=== PATIENT | male | born 1940 | race Caucasian/White ===

== ENCOUNTER → 2021-03-10 08:25 | Outpatient (REF) | payer MEDICARE, OTHER, SELFPAY ==
--- NOTE | 2021-03-10 08:30 | CA_ITS ---
Transthoracic Echocardiogram Patient (Last, First, Middle): Bobo Singh P Gender: Male Date of : 1940 Age: 80 Procedure Date: 03/10/2021 Procedure Type: Transthoracic Echocardiogram Location: OP Height: 182.88 cm Weight: 86.18 kg BSA: 2.08 m2 Heart Rate: bpm BP: 122 / 60 mmHg Automotive Glass Specialist: Referring MD: Tristan Doty MD Rate Analyst: Tristan Doty MD Symptoms: Z95.2 S/P AVR I25.10 CAD W/O ANGINA I10 HTN Z95.1 S/P CABG Study Quality: Fair ECG Rhythm: Sinus Conclusions: - 1. Normal LV systolic function with impaired relaxation filling pattern 2. Mildly dilated left atrium 3. Normally function bioprosthetic aortic valve with mean gradient of 14 mm Hg 4 normal RV systolic pressure 5. No pericardial effusion Findings Left Ventricle Normal left ventricular size and systolic function. There is mildly increased left ventricular wall thickness. The visually estimated ejection fraction is between 55-60%. There is paradoxical septal motion consistent with post operative status. Spectral Doppler is indicative of an impaired relaxation filling pattern. E/E prime ratio is between 8 and 15 consistent with indeterminate filling pressures. Right Ventricle Normal right ventricular cavity size and systolic function. Atria The left atrium is mildly dilated. There is no evidence of interatrial shunt. The right atrium is normal in size. Aortic Valve A bioprosthetic aortic valve is present. The prosthetic aortic valve appears to be functioning normally. The bioprosthetic valve is well seated without abnormal rocking motion. The leaflets are not well visualized. Mean gradient is 14 mm of mercury which is unchanged from before. Mitral Valve Normal mitral valve structure and function. There is mild mitral annular calcification. There is trace mitral valve regurgitation. There is no mitral valve stenosis. Pulmonic Valve The pulmonic valve was not well visualized. Tricuspid Valve Likely normal tricuspid valve structure and function. There is mild tricuspid valve regurgitation. The right ventricular systolic pressure is normal. The right ventricular systolic pressure is 16 mmHg. Normal right atrial pressure. There is no evidence of pulmonary hypertension. Great Vessels All visible segments of the aorta are normal in size. The pulmonary artery was not well visualized. Venous The inferior vena cava was not well visualized. Pericardium/Pleural There is no evidence of pericardial effusion. Prior Study Comparison No significant change compared to prior study dated: 02/23/2020. Measurements 2D Linear Measurements IVSd: 1.28 0.6-0.9/0.6-1.0 cm LVIDd: 4.51 3.9-5.3/4.2-5.9 cm LVIDd Index: 2.17 2.4-3.2/2.2-3.1 cm/m2 LVIDs: 2.84 2.0-3.6 cm LVPWd: 1.30 0.7-1.1 cm Ao Root: 4.10 2.1-3.5 cm LA Diam: 5.10 2.7-3.8/3.0-4.0 cm LAIDs Index: 2.45 1.5-2.3 cm/m2 LV Mass: 275.25 67-162/88-224 g LV Mass Index: 132.33 43-95/49-115 g/m2 LVOT Diam: 2.00 3.0+(-)1.3 cm Mitral Valve MV Pk E: 0.65 MV PK A: 1.30 MV Decel Time: 243.00 E/A: 0.50 E'Lateral: 8.05 E'Medial: 5.55 E/E' Med: 11.70 E/E' Lat: 8.10 PHT: 71.00 MVA PHT: 3.10 Decel [place]: 2.68 Aortic Valve AoV Pk Silvano: 2.41 AoV Mn Silvano: 1.71 AoV VTI: 0.57 AoV Pk Grad: 23.00 Aov Mn Grad: 14.00 SELMA Cont.VTI: 1.02 LVOT LVOT Pk Silvano: 0.90 LVOT Mn Silvano: 0.57 LVOT VTI: 0.19 LVOT Pk Grad: 3.00 LVOT Mn Grad: 2.00 LVOT Diam: 2.00 LVOT Area: 3.14 Diastolic Function MV Pk E: 0.65 MV Pk A: 1.30 E/A: 0.50 E'Medial: 5.55 E/E' Med: 11.70 E' Laterial: 8.05 E/E' Lat: 8.10 Tricuspid Valve TR Pk Silvano: 1.81 TR Pk Grad: 13.00 RA Press: 3.00 RVSP: 16.00 Great Vessels Aorta Ao Root-2D: 4.10 2.0-3.7 cm Pulmonary Valve PV Pk Silvano: 1.00 Peak PV Grad: 4.00 Updated in Other Vendor System with Status of Final Tristan Doty MD electronically signed on 03/11/2021 12:17:28 PM with status of Final
== END ==
LOC: HO.CARD 08:25
PROVIDERS: PCP Internal Medicine; Visit Provider Internal Medicine Cardiovascular Disease
DX: I25.10 Atherosclerotic heart disease of native coronary artery without angina pectoris (principal); I10 Essential (primary) hypertension; Z95.2 Presence of prosthetic heart valve; Z95.1 Presence of aortocoronary bypass graft
CPT/HCPCS: 93306

== ENCOUNTER → 2021-04-10 09:37 | Outpatient (BNVA) | payer MEDICARE, OTHER, SELFPAY | PROVIDERS: PCP Internal Medicine; Referring Provider Internal Medicine; Visit Provider Internal Medicine Cardiovascular Disease | DX: I25.10 Atherosclerotic heart disease of native coronary artery without angina pectoris (principal); I10 Essential (primary) hypertension; Z95.2 Presence of prosthetic heart valve; Z79.899 Other long term (current) drug therapy | CPT/HCPCS: 93005; 99212 ==

== ENCOUNTER 2022-03-28 13:30 | Outpatient (REF) | payer MEDICARE, OTHER, SELFPAY ==
[2022-03-28 16:56] LABS: Anion Gap 12 (12-20); Blood Urea Nitrogen 25 mg/dL (9-16); Calcium 9.2 mg/dL (8.4-10.2); Carbon Dioxide 26 mmol/L (22-29); Chloride 108 mmol/L (96-108); Estimated Glomerular Filt Rate > 60; Glucose Random 109 mg/dL (60-115); Potassium 4.4 mmol/L (3.3-5.1); Sodium 142 mmol/L (135-145)
== END 2022-03-28 13:31 | disposition home or self-care (01) ==
LOC: HO.HMGCLDS 13:30
PROVIDERS: PCP Internal Medicine; Visit Provider Internal Medicine Cardiovascular Disease
DX: I25.10 Atherosclerotic heart disease of native coronary artery without angina pectoris (principal); I10 Essential (primary) hypertension
CPT/HCPCS: 36415; 80048; 83880

== ENCOUNTER → 2022-04-02 09:13 | Outpatient (REF) | payer MEDICARE, OTHER, SELFPAY ==
--- NOTE | 2022-04-02 09:20 | CA_ITS ---
Transthoracic Echocardiogram Patient (Last, First, Middle): Bobo Singh P Gender: Male Date of : 1940 Age: 81 Procedure Date: 04/02/2022 Procedure Type: Transthoracic Echocardiogram Location: OP Height: 182.88 cm Weight: 83.92 kg BSA: 2.06 m2 Heart Rate: 77 bpm BP: 12 / 72 mmHg Legal Contracts Specialist: SB Referring MD: Tristan Doty MD Symptoms: Z95.2 - Presence of prosthetic heart valve Study Quality: Adequate ECG Rhythm: Sinus Conclusions: - The left ventricular systolic function is normal. The calculated ejection fraction is 64% by biplane method. - There is moderate septal asymmetric hypertrophy. - Evidence suggests grade III (severe) diastolic dysfunction. - The left atrium is severely dilated. - A bioprosthetic aortic valve is present. The prosthetic aortic valve appears to be functioning normally. - There is mild to moderate mitral valve regurgitation. Findings Left Ventricle Normal left ventricular cavity size. The left ventricular systolic function is normal. The calculated ejection fraction is 64% by biplane method. There is no evidence of regional wall motion abnormalities. E/E prime ratio is >15, consistent with elevated filling pressures. Evidence suggests grade III (severe) diastolic dysfunction. There is moderate septal asymmetric hypertrophy. Right Ventricle Normal right ventricular cavity size. There is mildly decreased right ventricular systolic function. Atria The left atrium is severely dilated. The right atrium is normal in size. Aortic Valve A bioprosthetic aortic valve is present. The prosthetic aortic valve appears to be functioning normally. The mean gradient is 22 mmHg. The aortic valve area is 1.97 cm2. Mild valvular regurgitation. Mitral Valve There is mild anterior mitral leaflet thickening. There is mild to moderate mitral valve regurgitation. There is no mitral valve stenosis. Pulmonic Valve The pulmonic valve is likely normal. Tricuspid Valve Normal tricuspid valve structure. There is mild tricuspid valve regurgitation. The pulmonary artery systolic pressure is normal. Great Vessels There is mild dilatation of the ascending aorta measuring 4.00 cm. Venous The inferior vena cava is normal in size and collapses less than 50% with inspiration. Pericardium/Pleural There is a trivial pericardial effusion. Prior Study Comparison Changes noted compared to prior study dated: 03/10/2021. Progression of diastolic dysfunction. Increase in atrial size. Increase in aortic valve gradients. Measurements 2D Linear Measurements IVSd: 1.33 0.6-0.9/0.6-1.0 cm LVIDd: 6.29 3.9-5.3/4.2-5.9 cm LVIDd Index: 3.05 2.4-3.2/2.2-3.1 cm/m2 LVIDs: 4.28 2.0-3.6 cm LVPWd: 0.89 0.7-1.1 cm Ao Root: 3.30 2.1-3.5 cm LA Diam: 5.20 2.7-3.8/3.0-4.0 cm LAIDs Index: 2.52 1.5-2.3 cm/m2 LV Mass: 382.59 67-162/88-224 g LV Mass Index: 185.72 43-95/49-115 g/m2 LVOT Diam: 2.20 3.0+(-)1.3 cm 2D Systolic Function EF 4C: 69.60 >55% EF 2C: 56.90 >55% EF BiP: 63.90 >55% Mitral Valve MV Pk E: 1.70 MV PK A: 0.43 MV Decel Time: 233.00 E/A: 4.00 E'Medial: 6.96 E/E' Med: 24.40 PHT: 68.00 MVA PHT: 3.24 Decel Perry: 7.32 MR Vol - PW Dopp: 22.12 MR VTI: 1.58 MR ERO: 14.00 MR Alias Silvano: 0.45 MR RAD: 0.50 Aortic Valve AoV Pk Silvano: 2.99 AoV Mn Silvano: 2.19 AoV VTI: 0.67 AoV Pk Grad: 36.00 Aov Mn Grad: 22.00 SELMA Cont.VTI: 1.97 AI Pk Silvano: 4.14 AI Perry: 4.73 LVOT LVOT Pk Silvano: 1.60 LVOT Mn Silvano: 1.05 LVOT VTI: 0.35 LVOT Pk Grad: 10.00 LVOT Mn Grad: 6.00 LVOT Diam: 2.20 LVOT Area: 3.80 Diastolic Function MV Pk E: 1.70 MV Pk A: 0.43 E/A: 4.00 E'Medial: 6.96 E/E' Med: 24.40 Right Ventricle TAPSE (mm): 14.10 TVS' Silvano: 7.90 Tricuspid Valve RA Press: 8.00 Great Vessels Aorta Ao Root-2D: 3.30 2.0-3.7 cm Sinus of Valsalva: 3.30 2.0-3.5 cm Ao Asc: 4.00 2.1-3.4 cm Pulmonary Valve PV Pk Silvano: 0.77 Peak PV Grad: 2.00 Updated in Other Vendor System with Status of Final Arturo Liang MD electronically signed on 04/02/2022 10:56:35 AM with status of Final
== END ==
LOC: HO.CARD 09:13
PROVIDERS: PCP Internal Medicine; Visit Provider Internal Medicine Cardiovascular Disease
DX: Z95.2 Presence of prosthetic heart valve (principal)
CPT/HCPCS: 93306

== ENCOUNTER → 2022-04-16 10:25 | Outpatient (BNVA) | payer MEDICARE, OTHER, SELFPAY | PROVIDERS: PCP Internal Medicine; Referring Provider Internal Medicine; Visit Provider Internal Medicine Cardiovascular Disease | DX: I25.10 Atherosclerotic heart disease of native coronary artery without angina pectoris (principal); R06.02 Shortness of breath; Z95.2 Presence of prosthetic heart valve | CPT/HCPCS: 93005; 99212 ==

== ENCOUNTER 2022-04-20 11:23 | Outpatient (REF) | payer MEDICARE, OTHER, SELFPAY ==
[2022-04-20 14:24] LABS: B Type Natriuretic Peptide 540 pg/mL (<100)
== END 2022-04-20 11:24 | disposition home or self-care (01) ==
LOC: HO.HMGCLDS 11:23
PROVIDERS: Visit Provider Internal Medicine Cardiovascular Disease
DX: I10 Essential (primary) hypertension (principal); I25.10 Atherosclerotic heart disease of native coronary artery without angina pectoris
CPT/HCPCS: 36415; 83880

== ENCOUNTER 2022-05-10 09:12 | Outpatient (REF) | payer MEDICARE, OTHER, SELFPAY ==
[2022-05-10 11:37] LABS: B Type Natriuretic Peptide 426 pg/mL (<100)
[2022-05-10 11:41] LABS: Anion Gap 13 (12-20); Blood Urea Nitrogen 28 mg/dL (9-16); Calcium 9.3 mg/dL (8.4-10.2); Carbon Dioxide 26 mmol/L (22-29); Chloride 109 mmol/L (96-108); Estimated Glomerular Filt Rate > 60; Glucose Random 136 mg/dL (60-115); Potassium 4.1 mmol/L (3.3-5.1); Sodium 144 mmol/L (135-145)
== END 2022-05-10 09:13 | disposition home or self-care (01) ==
LOC: HO.HMGCLDS 09:12
PROVIDERS: Visit Provider Internal Medicine Cardiovascular Disease
DX: I10 Essential (primary) hypertension (principal); I25.10 Atherosclerotic heart disease of native coronary artery without angina pectoris; Z95.2 Presence of prosthetic heart valve
CPT/HCPCS: 36415; 80048; 83880

== ENCOUNTER 2022-05-14 15:04 | Outpatient (REF) | payer MEDICARE, OTHER, SELFPAY ==
--- NOTE | ~2022-05-14 | XR_ITS ---
EXAMINATION: XR CHEST CLINICAL INFORMATION: Interstitial pulmonary disease. COMPARISON: None TECHNIQUE: 2 views of the chest were obtained. FINDINGS: The lungs are well expanded and clear of acute process. There is mild blunting of left CP angle from pleural thickening or effusion. Heart size and pulmonary vascularity is normal. There is aortic valve prosthesis and median sternotomy sutures from previous intervention. No gross bony abnormality seen. XR/XR chest 2V IMPRESSION: Mild blunting of left CP angle from pleural effusion or thickening.
== END 2022-05-14 15:05 | disposition home or self-care (01) ==
LOC: HO.XRAY 15:04
PROVIDERS: PCP Internal Medicine; Visit Provider Hospitalist
DX: J84.9 Interstitial pulmonary disease, unspecified (principal); J64 Unspecified pneumoconiosis; R06.02 Shortness of breath; Z87.891 Personal history of nicotine dependence; Z79.899 Other long term (current) drug therapy
CPT/HCPCS: 71046; 99202

== ENCOUNTER 2022-06-06 13:56 | Outpatient (REF) | payer MEDICARE, OTHER, SELFPAY ==
--- NOTE | 2022-06-06 14:54 | PFT_ITS ---
FLOWS: FEV1 72% of predicted at 2.25 L. FVC 63% of predicted at 2.76 L. FEV1 to FVC ratio of 0.82. No bronchodilator response except in small to medium airways. LUNG VOLUMES: Total lung capacity 63% of predicted at 4.72 L. Residual volume 76% of predicted at 2.14 L. Slow vital capacity 55% of predicted at 2.58 L. 43% of predicted at 0.55 L. Diffusion capacity is moderately decreased, diffusion capacity adjust to being mildly decreased after correction for alveolar ventilation. IMPRESSION: Moderate restrictive ventilatory defect with no bronchodilator response except in small to medium airways. Combination of decreased diffusion capacity with restrictive ventilatory defect suggest underlying pulmonary parenchymal disease. Clinical correlation is advised. MD JOSSIE Medina/MODL / [id number]
== END 2022-06-06 13:57 | disposition home or self-care (01) ==
LOC: HO.RESP 13:56
PROVIDERS: PCP Internal Medicine; Visit Provider Hospitalist
DX: J84.9 Interstitial pulmonary disease, unspecified (principal)
CPT/HCPCS: 94060; 94727; 94729

== ENCOUNTER → 2022-06-20 11:22 | Outpatient (BNVA) | payer MEDICARE, OTHER, SELFPAY | PROVIDERS: PCP Internal Medicine; Visit Provider Hospitalist | DX: J84.9 Interstitial pulmonary disease, unspecified (principal); J64 Unspecified pneumoconiosis; R06.02 Shortness of breath; G20 Parkinson's disease | CPT/HCPCS: 99212 ==

== ENCOUNTER 2022-08-24 09:18 | Outpatient (REF) | payer MEDICARE, OTHER, SELFPAY ==
--- NOTE | ~2022-08-24 | XR_ITS ---
EXAMINATION: XR CHEST CLINICAL INFORMATION: Shortness of breath COMPARISON: 05/14/2022 TECHNIQUE: 2 views of the chest were obtained. FINDINGS: Median sternotomy wires appear intact. Aortic valvular hardware. [id number] left pleural effusion. No pneumothorax. The cardiomediastinal silhouette is unchanged, with a calcified aorta. XR/XR chest 2V IMPRESSION: [id number] left pleural effusion.
== END 2022-08-24 09:19 | disposition home or self-care (01) ==
LOC: HO.XRAY 09:18
PROVIDERS: PCP Internal Medicine; Visit Provider Internal Medicine Cardiovascular Disease
DX: R06.02 Shortness of breath (principal); T82.09XA Other mechanical complication of heart valve prosthesis, initial encounter; I25.10 Atherosclerotic heart disease of native coronary artery without angina pectoris; Z79.899 Other long term (current) drug therapy
CPT/HCPCS: 71046; 99212

== ENCOUNTER → 2022-09-12 11:37 | Outpatient (BNVA) | payer MEDICARE, OTHER, SELFPAY | PROVIDERS: PCP Internal Medicine; Referring Provider Internal Medicine; Visit Provider Internal Medicine Cardiovascular Disease | DX: I25.10 Atherosclerotic heart disease of native coronary artery without angina pectoris (principal); I50.20 Unspecified systolic (congestive) heart failure; Z95.2 Presence of prosthetic heart valve | CPT/HCPCS: 93005; 99212 ==

== ENCOUNTER → 2022-09-18 09:18 | Outpatient (REF) | payer MEDICARE, OTHER, SELFPAY ==
--- NOTE | 2022-09-18 09:20 | CA_ITS ---
Transthoracic Echocardiogram Patient (Last, First, Middle): Bobo Singh P Gender: Male Date of : 1940 Age: 82 Procedure Date: 09/18/2022 Procedure Type: Transthoracic Echocardiogram Location: OP Height: 182.88 cm Weight: 72.58 kg BSA: 1.94 m2 Heart Rate: bpm BP: 100 / 68 mmHg Wheel Loader Operator: TO Referring MD: Tristan Doty MD Symptoms: Z95.2 - Presence of prosthetic heart valve Study Quality: Fair ECG Rhythm: Sinus Conclusions: - The calculated ejection fraction is 51% by biplane method. There is mild global hypokinesis. - There is mild to moderately decreased right ventricular systolic function. - The left atrium is severely dilated. - A bioprosthetic aortic valve is present. The prosthetic aortic valve appears to be functioning normally. - There is mild mitral valve regurgitation. Findings Left Ventricle Normal left ventricular cavity size. The left ventricular systolic function is mildly decreased. The calculated ejection fraction is 51% by biplane method. There is mild global hypokinesis. Diastolic function is normal for age. There is moderate septal asymmetric hypertrophy. Right Ventricle Normal right ventricular cavity size. There is mild to moderately decreased right ventricular systolic function. Atria The left atrium is severely dilated. The right atrium is normal in size. Aortic Valve A bioprosthetic aortic valve is present. The prosthetic aortic valve appears to be functioning normally. There is no aortic valve regurgitation. Mitral Valve There is mild anterior and posterior mitral leaflet thickening. There is mild mitral annular calcification. There is mild mitral valve regurgitation. There is no mitral valve stenosis. Pulmonic Valve The pulmonic valve is likely normal. Tricuspid Valve Normal tricuspid valve structure. There is trace tricuspid valve regurgitation. There is no evidence of pulmonary hypertension. Great Vessels The aorta was not well visualized. Venous The inferior vena cava is normal in size and collapses greater than 50% with inspiration. Pericardium/Pleural There is no evidence of pericardial effusion. Prior Study Comparison Changes noted compared to prior study dated: 04/02/2022. Diastolic dysfunction does not appear restrictive as previously described. Measurements 2D Linear Measurements IVSd: 1.30 0.6-0.9/0.6-1.0 cm LVIDd: 5.09 3.9-5.3/4.2-5.9 cm LVIDd Index: 2.62 2.4-3.2/2.2-3.1 cm/m2 LVIDs: 4.02 2.0-3.6 cm LVPWd: 0.91 0.7-1.1 cm LA Diam: 4.40 2.7-3.8/3.0-4.0 cm LAIDs Index: 2.27 1.5-2.3 cm/m2 LV Mass: 266.60 67-162/88-224 g LV Mass Index: 137.42 43-95/49-115 g/m2 LVOT Diam: 1.90 3.0+(-)1.3 cm 2D Systolic Function EF 4C: 50.70 >55% EF 2C: 45.50 >55% EF BiP: 50.50 >55% Mitral Valve MV VTI: 0.28 MV Pk Silvano: 1.21 MV Mn Silvano: 0.70 MV Pk Grad: 6.00 MV Mn Grad: 2.00 MV Pk E: 0.67 MV PK A: 1.08 MV Decel Time: 194.00 E/A: 0.60 E'Lateral: 7.29 E'Medial: 5.00 E/E' Med: 13.40 E/E' Lat: 9.20 PHT: 57.00 MVA PHT: 3.86 MVA Continuity: 1.56 Decel [place]: 3.45 Aortic Valve AoV Pk Silvano: 2.07 AoV Mn Silvano: 1.40 AoV VTI: 0.34 AoV Pk Grad: 17.00 Aov Mn Grad: 9.00 SELMA Cont.VTI: 1.30 LVOT LVOT Pk Silvano: 0.82 LVOT Mn Silvano: 0.63 LVOT VTI: 0.16 LVOT Pk Grad: 3.00 LVOT Mn Grad: 2.00 LVOT Diam: 1.90 LVOT Area: 2.84 Diastolic Function MV Pk E: 0.67 MV Pk A: 1.08 E/A: 0.60 E'Medial: 5.00 E/E' Med: 13.40 E' Laterial: 7.29 E/E' Lat: 9.20 Right Ventricle TAPSE (mm): 13.00 TVS' Silvano: 5.98 Tricuspid Valve TR Pk Silvano: 1.72 TR Pk Grad: 12.00 RA Press: 3.00 RVSP: 15.00 Updated in Other Vendor System with Status of Final Arturo Liang MD electronically signed on 09/19/2022 12:32:29 PM with status of Final
== END ==
LOC: HO.CARD 09:18
PROVIDERS: PCP Internal Medicine; Visit Provider Internal Medicine Cardiovascular Disease
DX: Z95.2 Presence of prosthetic heart valve (principal)
CPT/HCPCS: 93306

== ENCOUNTER 2022-09-26 10:38 | Outpatient (REF) | payer MEDICARE, OTHER, SELFPAY ==
--- NOTE | ~2022-09-26 | XR_ITS ---
EXAMINATION: XR CHEST CLINICAL INFORMATION: Pleural effusion. COMPARISON: 08/24/2022 chest radiographs. TECHNIQUE: 2 views of the chest were obtained. FINDINGS: There is a small left pleural effusion. The left upper lung field and right lung are clear. The heart and mediastinal structures are unremarkable. An aortic valve prosthesis is noted in place. Multilevel sternotomy wires are intact. XR/XR chest 2V IMPRESSION: Small left pleural effusion represents interval improvement from the previous study.
[2022-09-26 14:23] LABS: B Type Natriuretic Peptide 92 pg/mL (<100)
[2022-09-26 14:28] LABS: Anion Gap 13 (12-20); Blood Urea Nitrogen 24 mg/dL (9-16); Calcium 9.7 mg/dL (8.4-10.2); Carbon Dioxide 33 mmol/L (22-29); Chloride 98 mmol/L (96-108); Estimated Glomerular Filt Rate > 60; Glucose Random 87 mg/dL (60-115); Potassium 4.1 mmol/L (3.3-5.1); Sodium 140 mmol/L (135-145)
== END 2022-09-26 10:39 | disposition home or self-care (01) ==
LOC: HO.XRAY 10:38
PROVIDERS: Internal Medicine Cardiovascular Disease; PCP Internal Medicine; Visit Provider Hospitalist
DX: J90 Pleural effusion, not elsewhere classified (principal); J84.9 Interstitial pulmonary disease, unspecified; J64 Unspecified pneumoconiosis; R06.00 Dyspnea, unspecified; I50.20 Unspecified systolic (congestive) heart failure; I25.10 Atherosclerotic heart disease of native coronary artery without angina pectoris; Z95.2 Presence of prosthetic heart valve; Z79.899 Other long term (current) drug therapy
CPT/HCPCS: 36415; 71046; 80048; 83880; 99212

== ENCOUNTER → 2022-10-02 08:28 | Outpatient (BNVA) | payer MEDICARE, OTHER, SELFPAY | PROVIDERS: PCP Internal Medicine; Visit Provider Psychiatry & Neurology Neurology | DX: G20 Parkinson's disease (principal); Z79.899 Other long term (current) drug therapy | CPT/HCPCS: 99202 ==

== ENCOUNTER → 2022-11-29 12:14 | Outpatient (BNVA) | payer MEDICARE, OTHER, SELFPAY | PROVIDERS: PCP Internal Medicine; Referring Provider Internal Medicine; Visit Provider Internal Medicine Cardiovascular Disease | DX: I25.10 Atherosclerotic heart disease of native coronary artery without angina pectoris (principal); I50.9 Heart failure, unspecified; Z95.2 Presence of prosthetic heart valve | CPT/HCPCS: 99212 ==

== ENCOUNTER → 2023-03-27 10:11 | Outpatient (BNVA) | payer MEDICARE, OTHER, SELFPAY | PROVIDERS: PCP Internal Medicine; Visit Provider Hospitalist | DX: J84.9 Interstitial pulmonary disease, unspecified (principal); J90 Pleural effusion, not elsewhere classified; J64 Unspecified pneumoconiosis; R06.02 Shortness of breath | CPT/HCPCS: 99212 ==

== ENCOUNTER → 2023-04-02 09:12 | Outpatient (BNVA) | payer MEDICARE, OTHER, SELFPAY | PROVIDERS: PCP Internal Medicine; Visit Provider Psychiatry & Neurology Neurology | DX: G20 Parkinson's disease (principal) | CPT/HCPCS: 99212 ==

== ENCOUNTER 2023-05-29 11:09 | Outpatient (AMB) | payer MEDICARE, OTHER, SELFPAY ==
--- NOTE | 2023-05-29 11:23 | MHC.OFFVIS ---
Intake Vital Signs 05/29/23 11:24 Height 6 ft Weight 174 lb 2.643 oz BMI 23.6 BP 136/72 Blood Pressure Location Lt brachial Position Sitting Pulse 86 Intake Visit Reasons: 6 mth f/up Intake Note: 6 month follow-up feeling good Testing Machine Operator Required: No Allergies No Known Allergies Allergy (Verified 04/02/23 09:17) Medication List - Last Reconciled 05/29/23 by Tristan Doty MD apixaban (Eliquis) 2.5 mg PO BID 30 days atorvastatin 40 mg PO DAILY carbidopa-levodopa 25-100 mg 1 tab PO TID losartan 12.5 mg (1/2 x 25 mg) PO DAILY 90 days metoprolol tartrate 12.5 mg (1/2 x 25 mg) PO BID 90 days polyethylene glycol 3350 (Miralax) 17 grams PO DAILY rasagiline 1 mg PO DAILY HPI HPI Comments History of Present Illness Details Bobo comes for follow-up. He has been doing well. He has been gaining weight. He denies any worsening heart failure symptoms. No lightheadedness, syncope. No bleeding issues or neurologic events. He has more than 6 months since his transcatheter valve replacement on oral anticoagulation therapy. His Parkinson's disease has worsened slightly. He denies any exertional chest pain. No prolonged palpitations irregular heartbeat. 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 Mother CVD (cardiovascular disease) Daughter Macular degeneration Sister Colon cancer Cataract Brother Colon cancer Cataract Lung cancer Social History Household Members: Spouse Housing: House Alcohol intake: never Patient Tobacco Use Status: Former Tobacco user Tobacco use type: Cigarette Years Smoked: 15 Years service: Yes ([employer]) Current occupational status: retired Review of Systems Const Denies chills, Denies fatigue, Denies fever(s), Denies frequent falls, Denies weakness, Denies weight gain and Denies weight loss ENT Denies dizziness Card Denies chest pain, Denies leg edema, Denies lightheadedness, Denies palpitations, Denies dyspnea, Denies dyspnea on exertion, Denies orthopnea and Denies other (loss of consciousness) Resp Denies cough, Denies dyspnea and Denies dyspnea on exertion GI Denies hematochezia and Denies change in stool character Musc Denies abnormal gait, Denies muscle weakness, Denies numbness, Denies radiating pain into limb and Denies tingling Neuro Denies abnormal gait, Denies dizziness, Denies frequent falls, Denies numbness, Denies tingling and Denies weakness Endo Denies fatigue and Denies palpitations Physical Exam Vital Signs: Last Vital Signs Pulse 86 05/29/23 11:24 BP 136/72 05/29/23 11:24 BMI result Body Mass Index 23.6 Const General: cooperative, comfortable, no acute distress, alert and awake Nutritional Appearance: thin Orientation/consciousness: patient oriented x3 Limitations: no limitations Neck Neck: Yes trachea midline, Yes supple and Yes no JVD Resp Effort & Inspection: normal respiratory effort Auscultation: clear to auscultation bilaterally, no rales and no wheezes Cardio Jugular venous distension: no JVD Palpation: normal PMI Rate: regular rate Rhythm: regular rhythm Heart sounds: S1 normal heart sound present, S2 normal heart sound present, no click, no gallops and no murmurs GI Auscultation: normal bowel sounds Skin General skin exam: no rashes or lesions noted Neuro General: patient oriented x3, no focal motor deficits and other (Parkinsonian tremor present) Extrem General: Yes no clubbing, cyanosis or edema Psych Appearance: grossly normal Assessment & Plan Assessment & Plan (1) S/P TAVR (transcatheter aortic valve replacement): Comment: 26 mm bioprosthetic CoreValve, 08/30/2022 for prosthetic valve dysfunction Code(s): Z95.2 - Presence of prosthetic heart valve Plan: Status post transcatheter aortic valve replacement for bioprosthetic valve dysfunction with significant AI. Has done extremely well since the valve replacement with resolution of his heart failure syndrome. Does not require oral anticoagulation therapy at this time. Can discontinue and switched him low-dose aspirin therapy. Continue SBE prophylaxis as per ACC and aha guidelines. Echocardiogram in 6 months time. (2) Congestive heart failure: Code(s): I50.9 - Heart failure, unspecified Plan: Congestive heart failure syndrome with LV systolic dysfunction the setting of acute aortic regurgitation. Clinically with improved LV ejection fraction. Continue neurohormonal modulation with losartan and metoprolol therapy. Clinically with no signs of fluid overload. There is no indication for diuretic therapy. Signs symptoms of heart failure were discussed daily weight monitoring avoidance of salt loading was discussed. Advised to report any new symptoms. Follow-up echocardiogram 6 months time. (3) CAD (coronary artery disease): Code(s): I25.10 - Atherosclerotic heart disease of [place] coronary artery without angina pectoris Plan: CAD status post single-vessel coronary bypass grafting at the time of aortic valve replacement. Doing well with no symptoms of angina. Continue aggressive medical therapy. Continue high-intensity statin therapy with target goal LDL less than 70 mg/dL. Continue low-dose aspirin therapy for life. Blood pressure is currently well optimized advised to maintain activity level as tolerated. Will follow up in the clinic in 6 months time, sooner p.r.n.. Thank you for allowing me to partake in his care Orders: Orders Basic Metabolic Panel Today I50.9 - Heart failure, unspecified Medications: New aspirin (Ecotrin Low Strength) 81 mg PO DAILY 30 tabs 5RF I50.9 - Heart failure, unspecified Discontinued apixaban (Eliquis) Discontinued Reason: Doctor's Order 2.5 mg PO BID 30 days 60 tabs 2RF Coding Level of Care Code Est Pt Level 4 (59038) Diagnoses S/P TAVR (transcatheter aortic valve replacement) Z95.2 Congestive heart failure I50.9 CAD (coronary artery disease) I25.10
[2023-05-29 11:24] VITALS: BP 136/72; PULSE 86; BMI 23.6
== END 2023-05-29 12:34 | disposition home or self-care (01) ==
PROVIDERS: PCP Internal Medicine; Referring Provider Internal Medicine; Visit Provider Internal Medicine Cardiovascular Disease
DX: Z95.2 Presence of prosthetic heart valve (principal); I50.9 Heart failure, unspecified; I25.10 Atherosclerotic heart disease of native coronary artery without angina pectoris
CPT/HCPCS: 99214

== ENCOUNTER 2023-05-29 11:09 | Outpatient (REF) | payer MEDICARE, OTHER, SELFPAY ==
[2023-05-29 13:06] LABS: Anion Gap 9 (12-20); Blood Urea Nitrogen 26 mg/dL (9-16); Calcium 9.9 mg/dL (8.4-10.2); Carbon Dioxide 30 mmol/L (22-29); Chloride 107 mmol/L (96-108); Estimated Glomerular Filt Rate > 60; Glucose Random 98 mg/dL (60-115); Potassium 4.3 mmol/L (3.3-5.1); Sodium 142 mmol/L (135-145)
== END 2023-05-29 11:10 | disposition home or self-care (01) ==
LOC: HO.LAB 11:09
PROVIDERS: PCP Internal Medicine; Referring Provider Internal Medicine; Visit Provider Internal Medicine Cardiovascular Disease
DX: I50.9 Heart failure, unspecified (principal); I25.10 Atherosclerotic heart disease of native coronary artery without angina pectoris; Z95.2 Presence of prosthetic heart valve; Z79.899 Other long term (current) drug therapy
CPT/HCPCS: 36415; 80048; 99212

== ENCOUNTER 2023-10-08 09:08 | Outpatient (AMB) | payer MEDICARE, OTHER, SELFPAY ==
--- NOTE | 2023-10-08 09:15 | MHC.OFFVIS ---
Intake Vital Signs 10/08/23 09:17 Height 6 ft Weight 180 lb 5 oz BMI 24.5 BP 96/60 Blood Pressure Location Rt brachial Position Sitting Respiration 16 Pulse 88 Pulse Source Pulse Oximeter Pulse Oximetry (%) 96 Oxygen Delivery Method Room Air Intake Visit Reasons: 6m follow up - LVM Intake Note: Pt presents for a 6 month follow up for Parkinsons. Labor Relations Director Required: No Allergies No Known Allergies Allergy (Verified 10/08/23 09:17) HPI HPI Comments History of Present Illness Details 83 y/o ambidextrous male comes for follow up of Parkinsons disease. He decreased to Sinemet BID and risaglin 1m g daily. Sinemet TID caused him sleepiness and he slept too much during daytime. He is more alert and doing ok. He walks daily, no falls reported since the last visit. He says he is doing ok. He has persistent rest tremors in both his hands but it does not bother him. He is independent in all his ADLs. Denies memory loss or sleep behavior. He denies hallucinations, dizziness, nausea, vomiting. He has constipation but manages well with MiraLax. 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 Mother CVD (cardiovascular disease) Daughter Macular degeneration Sister Colon cancer Cataract Brother Colon cancer Cataract Lung cancer Social History Household Members: Spouse Housing: House Alcohol intake: never Patient Tobacco Use Status: Former Tobacco user Tobacco use type: Cigarette Years Smoked: 15 Years service: Yes ([employer]) Current occupational status: retired Review of Systems Const All systems reviewed & are unremarkable except as noted in HPI and below Physical Exam Vital Signs: Last Vital Signs Pulse 88 10/08/23 09:17 Resp 16 10/08/23 09:17 BP 96/60 10/08/23 09:17 Pulse Ox 96 10/08/23 09:17 Oxygen Delivery Method Room Air 10/08/23 09:17 BMI result Body Mass Index 24.5 Const General: cooperative and healthy appearing Nutritional Appearance: average body habitus Orientation/consciousness: patient oriented x3 Limitations: no limitations HEENT Head: Yes normal to inspection and Yes normocephalic Face and sinus: Yes normal facial exam Neuro Other: High amplitude rest tremors L>R Chin tremors Decreased FFM and foot taps - L>R Mild decreased facial expression and blink Mild hypophonia and dysprosody Gait- stooped, decreased arm swings kevin L>R , good stride and speed Decreased range of motion of neck , antecollis Right UE cog wheel rigidty 2 + General: patient oriented x3 Cranial nerves: Yes Nystagmus not present and Yes Normal facial strength present Coordination: [id number] test normal Assessment & Plan Assessment & Plan (1) Parkinson's disease: Code(s): G20 - Parkinson's disease Plan Continue to take Sinemet 25/100 BID with Rasagiline 1mg qd. Stretching exercises, and walking daily. Will consider amantidine 50 mg BID at the next visit. Pt does not want it at this time. Medications: Refilled rasagiline 1 mg PO DAILY 90 tabs 4RF Coding Level of Care Code Est Pt Level 3 (97207) Diagnoses Parkinson's disease G20
[2023-10-08 09:17] VITALS: BP 96/60; PULSE 88; RESP 16; O2SAT 96; BMI 24.5
== END 2023-10-08 09:42 | disposition home or self-care (01) ==
PROVIDERS: PCP Internal Medicine; Visit Provider Nurse Practitioner Family
DX: G20.A1 Parkinson's disease without dyskinesia, without mention of fluctuations (principal)
CPT/HCPCS: 99213

== ENCOUNTER → 2023-10-08 09:08 | Outpatient (BNVA) | payer MEDICARE, OTHER, SELFPAY | PROVIDERS: PCP Internal Medicine; Visit Provider Nurse Practitioner Family | DX: G20.A1 Parkinson's disease without dyskinesia, without mention of fluctuations (principal) | CPT/HCPCS: 99212 ==

== ENCOUNTER → 2023-10-29 10:52 | Outpatient (REF) | payer MEDICARE, OTHER, SELFPAY ==
--- NOTE | 2023-10-29 10:56 | CA_ITS ---
Transthoracic Echocardiogram Patient (Last, First, Middle): Bobo Singh P Gender: Male Date of : 1940 Age: 83 Procedure Date: 10/29/2023 Procedure Type: Transthoracic Echocardiogram Location: OP Height: 182. cm Weight: 79.38 kg BSA: 2.01 m2 Heart Rate: 65 bpm BP: 118 / 70 mmHg Volunteer Services Assistant: CIRILO Referring MD: Tristan Doty MD Hand Sign Writer: Tristan Doty MD Symptoms: Z95.2 - Presence of prosthetic heart valve Study Quality: Fair ECG Rhythm: Sinus Conclusions: - 1. Normal LV systolic function with LVEF of 55-60% with mild LVH with impaired relaxation filling pattern 2. Mildly dilated left atrium 3. Normally function bioprosthetic aortic valve with mean gradient of 9 mmHg 4. Mildly dilated ascending aorta 5. No gross pericardial effusion Findings Left Ventricle Normal left ventricular size and systolic function. There is mildly increased left ventricular wall thickness. The visually estimated ejection fraction is between 55-60%. Spectral Doppler is indicative of an impaired relaxation filling pattern. E/E prime ratio is between 8 and 15 consistent with indeterminate filling pressures. Peak GLs is -17.3%, borderline low. Wall Motion Rest Echo Findings The basal inferior and basal inferoseptal segments are hypokinetic. All other scored wall segments showed normal motion. Right Ventricle Normal right ventricular cavity size. There is moderate to severely decreased right ventricular systolic function. Atria The left atrium is mildly dilated. Interatrial shunt cannot be excluded. The right atrium is likely dilated. Aortic Valve A bioprosthetic aortic valve is present. The prosthetic aortic valve appears to be functioning normally. The mean gradient is 9 mmHg. There is no aortic valve regurgitation. the bioprosthetic valve is well seated with normal function. Mitral Valve There is mild anterior and posterior mitral leaflet thickening. There is mild mitral annular calcification. There is trace mitral valve regurgitation. There is no mitral valve stenosis. Pulmonic Valve The pulmonic valve is likely normal. There is trace pulmonic valve regurgitation. Tricuspid Valve Normal tricuspid valve structure. Tricuspid regurgitation envelope is inadequate for calculation of right ventricular systolic pressure. Normal right atrial pressure. Great Vessels The pulmonary artery was not well visualized. There is mild dilatation of the ascending aorta measuring 4.10 cm. Venous The inferior vena cava is normal in size and collapses greater than 50% with inspiration. Pericardium/Pleural There is no evidence of pericardial effusion. Measurements 2D Linear Measurements IVSd: 1.15 0.6-0.9/0.6-1.0 cm LVIDd: 3.74 3.9-5.3/4.2-5.9 cm LVIDd Index: 1.86 2.4-3.2/2.2-3.1 cm/m2 LVIDs: 1.20 2.0-3.6 cm LVPWd: 0.97 0.7-1.1 cm LA Diam: 4.60 2.7-3.8/3.0-4.0 cm LAIDs Index: 2.29 1.5-2.3 cm/m2 LV Mass: 154.87 67-162/88-224 g LV Mass Index: 77.05 43-95/49-115 g/m2 LVOT Diam: 2.10 3.0+(-)1.3 cm 2D Systolic Function EF 4C: 57.20 >55% EF 2C: 53.70 >55% EF BiP: 55.70 >55% Mitral Valve MV Pk E: 0.72 MV PK A: 1.39 MV Decel Time: 466.00 E/A: 0.50 E'Lateral: 8.27 E'Medial: 4.46 E/E' Med: 16.20 E/E' Lat: 8.80 PHT: 137.00 MVA PHT: 1.61 Decel Frio: 1.55 Aortic Valve AoV Pk Silvano: 2.04 AoV Mn Silvano: 1.41 AoV VTI: 0.39 AoV Pk Grad: 17.00 Aov Mn Grad: 9.00 SELMA Cont.VTI: 2.21 LVOT LVOT Pk Silvano: 1.34 LVOT Mn Silvano: 0.90 LVOT VTI: 0.25 LVOT Pk Grad: 7.00 LVOT Mn Grad: 4.00 LVOT Diam: 2.10 LVOT Area: 3.46 Diastolic Function MV Pk E: 0.72 MV Pk A: 1.39 E/A: 0.50 E'Medial: 4.46 E/E' Med: 16.20 E' Laterial: 8.27 E/E' Lat: 8.80 Right Ventricle TAPSE (mm): 11.50 TVS' Silvano: 5.87 Tricuspid Valve TR Pk Silvano: 1.83 TR Pk Grad: 13.00 Great Vessels Aorta Sinus of Valsalva: 3.70 2.0-3.5 cm Ao Asc: 4.10 2.1-3.4 cm Pulmonary Valve PV Pk Silvano: 0.95 Peak PV Grad: 4.00 Updated in Other Vendor System with Status of Final Tristan Doty MD electronically signed on 10/30/2023 3:05:37 PM with status of Final
== END ==
LOC: HO.CARD 10:52
PROVIDERS: PCP Internal Medicine; Visit Provider Internal Medicine Cardiovascular Disease
DX: Z95.2 Presence of prosthetic heart valve (principal)
CPT/HCPCS: 93306; 93356

== ENCOUNTER → 2023-10-29 10:56 | Outpatient (BNV) | payer MEDICARE, OTHER, SELFPAY | PROVIDERS: PCP Internal Medicine; Visit Provider Internal Medicine Cardiovascular Disease | DX: I34.81 Nonrheumatic mitral (valve) annulus calcification (principal); Z95.2 Presence of prosthetic heart valve | CPT/HCPCS: 93306 ==

== ENCOUNTER 2023-12-02 10:49 | Outpatient (AMB) | payer MEDICARE, OTHER, SELFPAY ==
[2023-12-02 10:55] VITALS: BP 124/72; PULSE 74; BMI 24.2
--- NOTE | 2023-12-02 10:55 | MHC.OFFVIS ---
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 He has been doing well well from cardiac perspective. Denies any significant heart failure symptoms. No orthopnea, PND, leg edema. No lightheadedness, syncope. Blood pressure is well controlled. He denies any exertional chest pain. Has increase his activity level and has been eating well and has been gaining weight. Denies any prolonged palpitation irregular heartbeat. 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 Mother CVD (cardiovascular disease) Daughter Macular degeneration Sister Colon cancer Cataract Brother Colon cancer Cataract Lung cancer Social History Household Members: Spouse Housing: House Alcohol intake: never Patient Tobacco Use Status: Former Tobacco user Tobacco use type: Cigarette Years Smoked: 15 Years service: Yes ([employer]) Current occupational status: retired Review of Systems Const Denies chills, Denies fatigue, Denies fever(s), Denies frequent falls, Denies weakness, Denies weight gain and Denies weight loss ENT Denies dizziness Card Denies chest pain, Denies leg edema, Denies lightheadedness, Denies palpitations, Denies dyspnea, Denies dyspnea on exertion, Denies orthopnea and Denies other (loss of consciousness) Resp Denies cough, Denies dyspnea and Denies dyspnea on exertion GI Denies hematochezia and Denies change in stool character Musc Denies abnormal gait, Denies muscle weakness, Denies numbness, Denies radiating pain into limb and Denies tingling Neuro Denies abnormal gait, Denies dizziness, Denies frequent falls, Denies numbness, Denies tingling and Denies weakness Endo Denies fatigue and Denies palpitations Physical Exam Vital Signs: Last Vital Signs Pulse 74 12/02/23 10:55 BP 124/72 12/02/23 10:55 BMI result Body Mass Index 24.2 Const General: cooperative, comfortable, no acute distress, alert and awake Nutritional Appearance: thin Orientation/consciousness: patient oriented x3 Limitations: no limitations Neck Neck: Yes trachea midline, Yes supple and Yes no JVD Resp Effort & Inspection: normal respiratory effort Auscultation: clear to auscultation bilaterally, no rales and no wheezes Cardio Jugular venous distension: no JVD Palpation: normal PMI Rate: regular rate Rhythm: regular rhythm Heart sounds: S1 normal heart sound present, S2 normal heart sound present, no click, no gallops and Murmur heart sound present systolic early GI Auscultation: normal bowel sounds Skin General skin exam: no rashes or lesions noted Neuro General: patient oriented x3, no focal motor deficits and other (Parkinsonian tremor present) Extrem General: Yes no clubbing, cyanosis or edema Psych Appearance: grossly normal Office Procedures EKG Details: EKG shows normal sinus rhythm with baseline artifact due to Parkinson's disease with minimal voltage criteria for LVH otherwise normal EKG 56715-[id number], Complete Assessment & Plan Assessment & Plan (1) S/P TAVR (transcatheter aortic valve replacement): Comment: 26 mm bioprosthetic CoreValve, 08/30/2022 for prosthetic valve dysfunction Code(s): Z95.2 - Presence of prosthetic heart valve Plan: Status post transcatheter bioprosthetic aortic valve replacement for failed surgical bioprosthetic aortic valve replacement. Doing extremely well with normalized LV systolic function and normal his heart failure syndrome. Clinically appears to be euvolemic and well compensated. Continue aggressive medical therapy including aggressive lipid modification. Continue low-dose aspirin therapy. SBE prophylaxis as per ACC/aha guidelines. Follow up with echocardiogram in 1 year's time. (2) CAD (coronary artery disease): Code(s): I25.10 - Atherosclerotic heart disease of [place] coronary artery without angina pectoris Plan: CAD with single-vessel coronary bypass grafting. Currently doing well. No symptoms of angina. Continue lifelong aspirin therapy. Blood pressure is currently well optimized advised to monitor blood pressure at home maintain a log. Goal blood pressure less than 130/84. Continue high-intensity statin therapy with target goal LDL less than 70 mg/dL. At least annual lipid panel should be pursued. Encouraged to continue to participate in physical activity as tolerated. Will follow up in the clinic in 1 year's time, sooner p.r.n.. Thank you for allowing me to partake in his care Medications: Changed From rasagiline 1 mg PO DAILY 90 tabs 4RF To rasagiline 1 mg PO DAILY Coding Level of Care Code Est Pt Level 4 (42796) Diagnoses S/P TAVR (transcatheter aortic valve replacement) Z95.2 CAD (coronary artery disease) I25.10 CPT Codes EKG - CPT: 03340-[id number], Complete ([id number])
== END 2023-12-02 11:20 | disposition home or self-care (01) ==
PROVIDERS: PCP Internal Medicine; Visit Provider Internal Medicine Cardiovascular Disease
DX: Z95.2 Presence of prosthetic heart valve (principal); I25.10 Atherosclerotic heart disease of native coronary artery without angina pectoris
CPT/HCPCS: 93010; 99214

== ENCOUNTER → 2023-12-02 10:49 | Outpatient (BNVA) | payer MEDICARE, OTHER, SELFPAY | PROVIDERS: PCP Internal Medicine; Visit Provider Internal Medicine Cardiovascular Disease | DX: I25.10 Atherosclerotic heart disease of native coronary artery without angina pectoris (principal); Z95.2 Presence of prosthetic heart valve | CPT/HCPCS: 93005; 99212 ==

== ENCOUNTER 2024-01-22 14:07 | Outpatient (AMB) | payer MEDICARE, OTHER, SELFPAY ==
--- NOTE | 2024-01-22 14:11 | AM.OFFWIN_ITS ---
Intake Vital Signs 01/22/24 14:12 Height 6 ft Weight 178 lb BMI 24.1 BP 102/60 Blood Pressure Location Lt brachial Position Sitting Pulse 76 Pulse Source Pulse Oximeter Temp 97.8 F Temp Source Oral Pulse Oximetry (%) 97 Oxygen Delivery Method Room Air Intake Visit Reasons: EP Facial bruise Lft under eye (lobby) Intake Note: pt is here scab on face under eye Patient Tobacco Use Status: Former Tobacco user Allergies No Known Allergies Allergy (Verified 01/22/24 14:12) Do you need a note to return to daycare/school/sports/work: No HPI EP Facial bruise Lft under eye (lobby) HPI Details This is an 83 year old male patient who presents today with his for a growth on the right side of his face that has been rapidly growing in size. He reports this started as a small scab about 2 years ago. He was seen at that time by derm (unsure of office) and was told to watch it. Over the last 2 months, this has grown significantly in size, has darkened in color, and become more raised. It is not painful nor draining. Derm appt. is not scheduled until 04/20/24. 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 Mother CVD (cardiovascular disease) Daughter Macular degeneration Sister Colon cancer Cataract Brother Colon cancer Cataract Lung cancer Social History Household Members: Spouse Housing: House Alcohol intake: never Patient Tobacco Use Status: Former Tobacco user Tobacco use type: Cigarette Years Smoked: 15 Years service: Yes ([employer]) Current occupational status: retired Review of Systems Const All systems reviewed & are unremarkable except as noted in HPI and below Physical Exam Vital Signs: Last Vital Signs Temp 97.8 F 01/22/24 14:12 Pulse 76 01/22/24 14:12 BP 102/60 01/22/24 14:12 Pulse Ox 97 01/22/24 14:12 Oxygen Delivery Method Room Air 01/22/24 14:12 BMI result Body Mass Index 24.1 Const General: cooperative and no acute distress Resp Effort & Inspection: normal respiratory effort and able to speak in complete sentences Skin Other: dark murphy, crusty/scabbed appearing growth on right side of face, just lateral and superior to right nare. Approx 2cm x 1cm. Medial aspect of this appears to have some dried blood beneath it. Surrounding skin intact without any erythema or lesions. Extrem General: Yes no clubbing, cyanosis or edema Psych Appearance: grossly normal Mental Status: mental status grossly normal Speech and movement: Normal speech and movement present Assessment & Plan Assessment & Plan (1) Facial lesion: Code(s): L98.9 - Disorder of the skin and subcutaneous tissue, unspecified Plan: I called [facility] to see if patient can be evaluated for this quickly growing lesion on the right side of his face - I am concerned he may need biopsy. Initial 04/20 appointment was moved up to tomorrow 01/22 at 1:[address] [facility] Patient and informed of this and are able to make this visit. All questions were answered. Coding Level of Care Code Est Pt Level 3 (15674) Diagnoses Facial lesion L98.9
[2024-01-22 14:12] VITALS: BP 102/60; PULSE 76; TEMP 36.6; O2SAT 97; BMI 24.1
== END 2024-01-22 14:42 | disposition home or self-care (01) ==
PROVIDERS: PCP Internal Medicine; Visit Provider Nurse Practitioner Family
DX: L98.9 Disorder of the skin and subcutaneous tissue, unspecified (principal)
CPT/HCPCS: 99213

== ENCOUNTER 2024-03-13 14:41 | Outpatient (REF) | payer MEDICARE, OTHER, SELFPAY ==
[2024-03-13 11:17] VITALS: PULSE 70; RESP 16; O2SAT 96
--- NOTE | 2024-03-13 15:49 | PFT_ITS ---
Flows: FEV1: 107 % of predicted at 3.18 L FVC: 102 % of predicted at 4.16 L FEV1/FVC: 77 % Bronchodilator response: Present in small to medium airways only Volumes: Total lung capacity: 84 % of predicted at 6.34 L Residual volume: 74 % of predicted at 2.22 L Slow vital capacity: 96 % of predicted at 4.12 L Expiratory reserve volume: 119 % of predicted at 1.62 L Diffusion capacity: Mildly decreased Impression: No obstructive or restrictive ventilatory defect. Bronchodilator response present in small to medium airways only. Decreased diffusion capacity suggests emphysema. MTDD
== END 2024-03-13 14:42 | disposition home or self-care (01) ==
LOC: HO.RESP 14:41
PROVIDERS: PCP Internal Medicine; Visit Provider Hospitalist
DX: J90 Pleural effusion, not elsewhere classified (principal)
CPT/HCPCS: 94010; 94640; 94727; 94729

== ENCOUNTER → 2024-03-13 15:49 | Outpatient (BNV) | payer MEDICARE, OTHER, SELFPAY | PROVIDERS: PCP Internal Medicine; Visit Provider Internal Medicine Pulmonary Disease | DX: J90 Pleural effusion, not elsewhere classified (principal) | CPT/HCPCS: 94060; 94727; 94729 ==

== ENCOUNTER 2024-03-17 11:04 | Outpatient (AMB) | payer MEDICARE, OTHER, SELFPAY ==
[2024-03-17 11:19] VITALS: BP 118/60; PULSE 70; O2SAT 98; BMI 23.7
--- NOTE | 2024-03-17 11:19 | MHC.OFFVIS ---
Vital Signs 03/17/24 11:19 Height 6 ft Weight 175 lb BMI 23.7 BP 118/60 Blood Pressure Location Lt brachial Position Sitting Pulse 70 Pulse Source Pulse Oximeter Pulse Oximetry (%) 98 Oxygen Delivery Method Room Air Intake Visit Reasons: ILD/PFT Follow Up Speech Lang Path Therapist Required: No Allergies No Known Allergies Allergy (Verified 03/17/24 11:21) HPI Comments Details: The patient is an 83-year-old gentleman with a known history of Parkinson's disease and also valvular disease who apparently has been the developing worsening dyspnea symptoms. The symptoms appear to be progressive in nature. He has been getting short of breath even with minimal activities and daily sure his around the house. he also complains of a congested all the time. His current medications have not been helping those symptoms. he is tolerating his diuresis well. Even with the Parkinson's the family denies any choking episodes while eating. In the meantime we did talk about considering a wedge pillow to allow him to have the head of bed elevated and minimize silent aspirations. During the visit the patient did undergo a 6 minute walk test and he did desaturate just at the end of the study to 80%. Therefore the pacing was placed on at 2 L pulse device and that was able to maintain his pulse ox in the mid 90s. Therefore, will request a conserving device the patient with the cylinder in the pulse valve to allow oxygen supplementation but not to resulted in any risk of fall specially with his Parkinson's. 06/20/2022 the patient is here for a pulmonary follow-up visit. Overall the patient feels better. His chest congestion has improved dramatically. He still has a cough in the has shortness of breath with activity. He is using the oxygen. The oxygen therapy has been affecting beneficial. However he has not gotten his conserving device as of yet. I will resubmit prescription to his [employer] company for a conserving device pulse valve for his be cylinder. This way it will last him a lot longer. He has been taking the azithromycin 3 times a week. He is mucus burden has significantly improved. He denies any significant mucus plugging. We did review his chest x-ray demonstrating some slight pleural thickening or small pleural effusion on the left. in addition to that he did undergo pulmonary function studies which demonstrated a moderate restrictive ventilatory defect and also severe diffusion impairment. Although better than expected. 09/26/2022 the patient is here for a pulmonary follow-up visit. Overall he is doing a lot better from a respiratory status. He did undergo his valve replacement intervention. Prior to that he had a chest x-ray without significant pleural effusion. He was subsequently transferred to a [place] hospital due to availability issues. There he did undergo a thoracentesis draining more than a L of dark serous fluid. ultimately his course was complicated by COVID. After he coverage he was able to get his surgery. I do believe that he did require to thoracentesis. At this point the patient did start pulmonary rehab. He has been doing very well. He has not required the oxygen as of yet. although, he just started the rehab. Will have him continue with the oxygen at home and to use with activity until after the holidays. If the patient is still not requiring the oxygen with his exercise he can always call and I will discontinue the oxygen at that time. The patient should have a chest x-ray just to assess the baseline after the thoracentesis and surgery. His breath sounds are diminished and I do not foresee that he has significant pleural effusions at this time. 03/27/2023 the patient is here for a pulmonary follow-up visit. The patient overall is feeling well. He is walking to and have miles a day. Denies any respiratory limitations. No longer needing oxygen. His last chest x-ray was back in September 2022 demonstrating interval improvement of the pleural effusion just with a trace effusion noted at that time. His respiratory exam is completely normal without any evidence of any residual pleural fluid. Clinically the patient is doing well from a respiratory status therefore will hold off on any additional imaging studies. He is not using any inhalers. Will plan to follow-up in a year's time unless he has any issues he will call the office. When he returns in a year will have him undergo pulmonary function studies and a repeat chest x-ray. Otherwise sooner if he develops any worsening symptoms. 03/17/2024 the patient is here for a pulmonary follow-up visit. The patient overall has been doing okay. Apparently few months back he did see his primary care doctor and he was diagnosed with a lower respiratory infection. He had an x-ray at [place] do not have access to that x-ray this time. But he is feeling better although he still has a chronic cough productive in nature yellowish sputum. Denies any choking when he eats although he does have significant Parkinson's. Does not really limit his activity. He walks around 2 miles a day with his dog and denies any significant shortness of breath. The cough is productive with yellowish green phlegm at times he would denies any blood. Again I do have the x-ray report but previously 2021 he did have some pleural effusions noted on x-ray. I do believe that he likely has micro aspirations primarily due to his underlying Parkinson's. Will start him on azithromycin 3 times a week. The patient should have an EKG after he starts the medicine to make sure that his QTC is within normal. The patient should take the medicine for about 4 weeks and then stopping then readdress. The patient returned for 6 months. If he has any worsening symptoms he will call for an earlier assessment. 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 Mother CVD (cardiovascular disease) Daughter Macular degeneration Sister Colon cancer Cataract Brother Colon cancer Cataract Lung cancer Social History Household Members: Spouse Housing: House Alcohol intake: never Patient Tobacco Use Status: Former Tobacco user Tobacco use type: Cigarette Years Smoked: 15 Years service: Yes ([employer]) Current occupational status: retired Review of Systems Const Denies chills, Denies fatigue, Denies fever(s), Denies frequent falls, Denies weakness, Denies weight gain and Denies weight loss ENT Denies dizziness Card Denies chest pain, Denies leg edema, Denies lightheadedness, Denies palpitations, Denies dyspnea, Reports dyspnea on exertion, Denies orthopnea and Denies other (loss of consciousness) Resp Reports change in phlegm color, Reports chest congestion, Denies cough, Denies dyspnea and Reports dyspnea on exertion GI Denies hematochezia and Denies change in stool character Musc Reports abnormal gait, Denies muscle weakness, Denies numbness, Denies radiating pain into limb and Denies tingling Skin/Breast Denies rash Neuro Reports abnormal gait, Denies dizziness, Denies frequent falls, Denies numbness, Denies tingling, Reports tremor(s) and Denies weakness Endo Denies fatigue and Denies palpitations Physical Exam Vital Signs: Last Vital Signs Pulse 70 03/17/24 11:19 BP 118/60 03/17/24 11:19 Pulse Ox 98 03/17/24 11:19 Oxygen Delivery Method Room Air 03/17/24 11:19 BMI result Body Mass Index 23.7 Const General: cooperative, comfortable, no acute distress, alert and awake Nutritional Appearance: thin Orientation/consciousness: patient oriented x3 HEENT Head: Yes atraumatic Neck Neck: Yes trachea midline, Yes supple and Yes no JVD Chest Chest palpation & inspection: normal inspection of the chest Resp Effort & Inspection: normal respiratory effort Auscultation: no crackles and diminished lung sounds Cardio Jugular venous distension: no JVD Palpation: normal PMI Rate: regular rate Rhythm: regular rhythm Heart sounds: S1 normal heart sound present and S2 normal heart sound present GI Auscultation: normal bowel sounds Skin General skin exam: no rashes or lesions noted Neuro General: patient oriented x3 and no focal motor deficits Extrem General: Yes no clubbing, cyanosis or edema Psych Appearance: grossly normal Assessment & Plan Assessment & Plan (1) ILD (interstitial lung disease): Code(s): J84.9 - Interstitial pulmonary disease, unspecified Category: Medical (2) Pneumoconiosis: Code(s): J64 - Unspecified pneumoconiosis Category: Medical (3) Dyspnea: Code(s): R06.00 - Dyspnea, unspecified Category: Medical Qualifiers: Dyspnea type: shortness of breath Qualified Code(s): R06.02 - Shortness of breath (4) Pleural effusion: Code(s): J90 - Pleural effusion, not elsewhere classified Category: Medical Plan Discontinue oxygen CXR EKG Trial Azithromycin MWF x 4 weeks F/U 6 months Orders: Orders ECG 12 lead EKG Today J44.9 - Chronic obstructive pulmonary disease, unspecified Medications: New azithromycin Take 1 tablet on Saturday/Saturday/Saturday 250 mg PO 3XW 12 tabs 0RF 28 days K21.9 - Gastro-esophageal reflux disease without esophagitis Coding Level of Care Code Est Pt Level 4 (86611) Diagnoses ILD (interstitial lung disease) J84.9 Pneumoconiosis J64 Shortness of breath R06.02 Dyspnea type: shortness of breath Pleural effusion J90 Time Spent (min) 17
== END 2024-03-17 11:53 | disposition home or self-care (01) ==
PROVIDERS: PCP Internal Medicine; Visit Provider Hospitalist
DX: J84.9 Interstitial pulmonary disease, unspecified (principal); J64 Unspecified pneumoconiosis; R06.02 Shortness of breath; J90 Pleural effusion, not elsewhere classified
CPT/HCPCS: 99214

== ENCOUNTER → 2024-03-17 11:04 | Outpatient (BNVA) | payer MEDICARE, OTHER, SELFPAY | PROVIDERS: PCP Internal Medicine; Visit Provider Hospitalist | DX: J84.9 Interstitial pulmonary disease, unspecified (principal); J64 Unspecified pneumoconiosis; J90 Pleural effusion, not elsewhere classified; R06.02 Shortness of breath | CPT/HCPCS: 99212 ==

== ENCOUNTER 2024-04-01 08:42 | Outpatient (REF) | payer MEDICARE, OTHER, SELFPAY ==
--- NOTE | ~2024-04-01 | XR_ITS ---
EXAMINATION: XR CHEST CLINICAL INFORMATION: Pleural effusion. COMPARISON: September 26, 2022. TECHNIQUE: 3 views of the chest. FINDINGS: S-shaped thoracolumbar scoliosis with multilevel degenerative changes. There is no gross pneumothorax. Heart size is normal. Median sternotomy wires with aortic valve prosthesis redemonstrated. No significant pleural effusion. Mild degenerative changes in the thoracic spine. No new focal consolidation to suggest pneumonia. XR/XR chest 2V IMPRESSION: 1. No significant pleural effusion. 2. No new focal consolidation to suggest pneumonia.
--- NOTE | 2024-04-01 08:49 | ECG_ITS ---
Test Reason : copd Blood Pressure : / mmHG Vent. Rate : 072 BPM Atrial Rate : 072 BPM P-R Int : 190 ms QRS Dur : 100 ms QT Int : 388 ms P-R-T Axes : 046 -24 014 degrees QTc Int : 424 ms Normal sinus rhythm Minimal voltage criteria for LVH, may be normal variant ( R in aVL ) Borderline ECG No previous ECGs available Referred By: Erwin Balderas Electronically Signed By:CORRINE LARSON
== END 2024-04-01 08:43 | disposition home or self-care (01) ==
LOC: HO.XRAY 08:42
PROVIDERS: PCP Internal Medicine; Visit Provider Hospitalist
DX: J90 Pleural effusion, not elsewhere classified (principal); J44.9 Chronic obstructive pulmonary disease, unspecified
CPT/HCPCS: 71046; 93005

== ENCOUNTER → 2024-04-01 08:49 | Outpatient (BNV) | payer MEDICARE, OTHER, SELFPAY | PROVIDERS: PCP Internal Medicine; Visit Provider Internal Medicine | DX: R94.31 Abnormal electrocardiogram [ECG] [EKG] (principal); J44.9 Chronic obstructive pulmonary disease, unspecified | CPT/HCPCS: 93010 ==

== ENCOUNTER 2024-07-28 12:10 | Outpatient (AMB) | payer MEDICARE, OTHER, SELFPAY ==
--- NOTE | 2024-07-28 12:27 | A.OFFVIS_ITS ---
Vital Signs 07/28/24 12:28 Height 6 ft Weight 185 lb 4 oz BMI 25.1 BP 118/68 Blood Pressure Location Rt brachial Position Sitting Pulse 73 Pulse Source Pulse Oximeter Pulse Oximetry (%) 98 Oxygen Delivery Method Room Air Intake Visit Reasons: 6 mo f/u Intake Note: Patient presents for a 10 mon follow up. 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 Required: No Accompanied by: Spouse Allergies No Known Allergies Allergy (Verified 07/28/24 12:28) Medication List - Last Reconciled 07/28/24 by Caitlin Brar MD aspirin (Ecotrin Low Strength) 81 mg PO DAILY atorvastatin 40 mg PO DAILY carbidopa-levodopa 25-100 mg 1 tab PO TID 90 days losartan 12.5 mg (1/2 x 25 mg) PO DAILY metoprolol tartrate 12.5 mg (1/2 x 25 mg) PO BID polyethylene glycol 3350 (Miralax) 17 grams PO DAILY rasagiline 1 mg PO DAILY HPI Comments Details: 84y/o ambidextrous male comes for follow up of Parkinsons disease after more than a year.He is worse - slower, tremors are worse. Speech is worse , drools more. No dysphagia. He has persistent rest tremors in both his hands but it does not bother him.He denies any side effects. He is independent in all his ADLs.No falls. He takes 1- 2 mile walk .Mood is stable . sleep is good. Memory is stable Initial History-He was diagnosed 11years ago when he presented with left hand tremors.His symptoms have progressed gradually. He has rare word finding difficulties.He has vivid dreams and yells in sleep 4- 5/year.No snoring.He has daytime fatigue No depression or anxiety.He likes to walk with his dog. He had 3 falls . He was on oxygen at that time - took it out to use the bathroom and fell down . He is off the oxygen now and is doing good. He has drooling, voice is softer handwriting is small.He is slower in using utensils, dressing ,showering.He has trouble moving in bed.His is walking good. He used to walk 5 miles a day and has decreased to 1 mile since his heart ( valve replacement)TARV. He denies hallucinations, dizziness, nausea, vomiting. He has constipation. He was [facility] when he was younger.No head injury. 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 Mother CVD (cardiovascular disease) Daughter Macular degeneration Sister Colon cancer Cataract Brother Colon cancer Cataract Lung cancer Social History Household Members: Spouse Housing: House Alcohol intake: never Patient Tobacco Use Status: Former Tobacco user Tobacco use type: Cigarette Years Smoked: 15 Years service: Yes ([employer]) Current occupational status: retired Physical Exam Vital Signs: Last Vital Signs Pulse 73 07/28/24 12:28 BP 118/68 07/28/24 12:28 Pulse Ox 98 07/28/24 12:28 Oxygen Delivery Method Room Air 07/28/24 12:28 BMI result Body Mass Index 25.1 Const General: cooperative and healthy appearing Nutritional Appearance: average body habitus Orientation/consciousness: patient oriented x3 Limitations: no limitations HEENT Head: Yes normal to inspection and Yes normocephalic Face and sinus: Yes normal facial exam Neuro Other: High amplitude rest tremors L>R Chin tremors Decreased FFM and foot taps - L>R Mild decreased facial expression and blink Mild hypophonia and dysprosody Gait- stooped, decreased arm swings kevin L>R , good stride and speed Decreased range of motion of neck , antecollis Right UE cog wheel rigidty 2 + General: patient oriented x3 Cranial nerves: Yes Nystagmus not present and Yes Normal facial strength present Coordination: [id number] test normal Assessment & Plan Assessment & Plan (1) Parkinson's disease: Code(s): G20 - Parkinson's disease Category: Medical Qualifiers: Dyskinesia presence: without dyskinesia Fluctuating manifestations: without fluctuating manifestations Qualified Code(s): G20.A1 - Parkinson's di sease without dyskinesia, without mention of fluctuations Plan Continue to take Sinemet 25/100 BID with Rasagiline 1mg qd. Stretching exercises, and walking daily. Pt does not want it at this time. Medications: Changed From carbidopa-levodopa 25-100 mg 1 tab PO TID 90 days 270 tabs 2RF To carbidopa-levodopa 25-100 mg 1 tab PO BID 90 days 180 tabs 2RF Coding Level of Care Code Est Pt Level 4 (31710) Complex EM visit Add On G2211 Diagnoses Parkinson's disease without dyskinesia or fluctuating manifestations G20.A1 Dyskinesia presence: without dyskinesia Fluctuating manifestations: without fluctuating manifestations
[2024-07-28 12:28] VITALS: BP 118/68; PULSE 73; O2SAT 98; BMI 25.1
== END 2024-07-28 12:58 | disposition home or self-care (01) ==
PROVIDERS: PCP Internal Medicine; Visit Provider Psychiatry & Neurology Neurology
DX: G20.A1 Parkinson's disease without dyskinesia, without mention of fluctuations (principal)
CPT/HCPCS: 99214; G2211

== ENCOUNTER → 2024-07-28 12:10 | Outpatient (BNVA) | payer MEDICARE, OTHER, SELFPAY | PROVIDERS: PCP Internal Medicine; Visit Provider Psychiatry & Neurology Neurology | DX: G20.A1 Parkinson's disease without dyskinesia, without mention of fluctuations (principal) | CPT/HCPCS: 99212 ==

== ENCOUNTER 2024-09-25 10:14 | Outpatient (AMB) | payer MEDICARE, OTHER, SELFPAY ==
[2024-09-25 10:28] VITALS: BP 102/62; PULSE 75; O2SAT 95; BMI 25.3
--- NOTE | 2024-09-25 10:28 | A.OFFVIS_ITS ---
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 The symptoms appear to be progressive in nature. He has been getting short of breath even with minimal activities and daily sure his around the house. he also complains of a congested all the time. His current medications have not been helping those symptoms. he is tolerating his diuresis well. Even with the Parkinson's the family denies any choking episodes while eating. In the meantime we did talk about considering a wedge pillow to allow him to have the head of bed elevated and minimize silent aspirations. During the visit the patient did undergo a 6 minute walk test and he did desaturate just at the end of the study to 80%. Therefore the pacing was placed on at 2 L pulse device and that was able to maintain his pulse ox in the mid 90 s. Therefore, will request a conserving device the patient with the cylinder in the pulse valve to allow oxygen supplementation but not to resulted in any risk of fall specially with his Parkinson's. 06/20/2022 the patient is here for a pulmonary follow-up visit. Overall the patient feels better. His chest congestion has improved dramatically. He still has a cough in the has shortness of breath with activity. He is using the oxygen. The oxygen therapy has been affecting beneficial. However he has not gotten his conserving device as of yet. I will resubmit prescription to his [employer] company for a conserving device pulse valve for his be cylinder. This way it will last him a lot longer. He has been taking the azithromycin 3 times a week. He is mucus burden has significantly improved. He denies any significant mucus plugging. We did review his chest x-ray demonstrating some slight pleural thickening or small pleural effusion on the left. in addition to that he did undergo pulmonary function studies which demonstrated a moderate restrictive ventilatory defect and also severe diffusion impairment. Although better than expected. 09/26/2022 the patient is here for a pulmonary follow-up visit. Overall he is doing a lot better from a respiratory status. He did undergo his valve replacement intervention. Prior to that he had a chest x-ray without significant pleural effusion. He was subsequently transferred to a [place] hospital due to availability issues. There he did undergo a thoracentesis draining more than a L of dark serous fluid. ultimately his course was complicated by COVID. After he coverage he was able to get his surgery. I do believe that he did require to thoracentesis. At this point the patient did start pulmonary rehab. He has been doing very well. He has not required the oxygen as of yet. although, he just started the rehab. Will have him continue with the oxygen at home and to use with activity until after the holidays. If the patient is still not requiring the oxygen with his exercise he can always call and I will discontinue the oxygen at that time. The patient should have a chest x-ray just to assess the baseline after the thoracentesis and surgery. His breath sounds are diminished and I do not foresee that he has significant pleural effusions at this time. 03/27/2023 the patient is here for a pulmonary follow-up visit. The patient overall is feeling well. He is walking to and have miles a day. Denies any respiratory limitations. No longer needing oxygen. His last chest x-ray was back in September 2022 demonstrating interval improvement of the pleural effusion just with a trace effusion noted at that time. His respiratory exam is completely normal without any evidence of any residual pleural fluid. Clinically the patient is doing well from a respiratory status therefore will hold off on any additional imaging studies. He is not using any inhalers. Will plan to follow-up in a year's time unless he has any issues he will call the office. When he returns in a year will have him undergo pulmonary function studies and a repeat chest x-ray. Otherwise sooner if he develops any worsening symptoms. 03/17/2024 the patient is here for a pulmonary follow-up visit. The patient overall has been doing okay. Apparently few months back he did see his primary care doctor and he was diagnosed with a lower respiratory infection. He had an x-ray at [facility] do not have access to that x-ray this time. But he is feeling better although he still has a chronic cough productive in nature yellowish s putum. Denies any choking when he eats although he does have significant Parkinson's. Does not really limit his activity. He walks around 2 miles a day with his dog and denies any significant shortness of breath. The cough is productive with yellowish green phlegm at times he would denies any blood. Again I do have the x-ray report but previously 2021 he did have some pleural effusions noted on x-ray. I do believe that he likely has micro aspirations primarily due to his underlying Parkinson's. Will start him on azithromycin 3 times a week. The patient should have an EKG after he starts the medicine to make sure that his QTC is within normal. The patient should take the medicine for about 4 weeks and then stopping then readdress. The patient returned for 6 months. If he has any worsening symptoms he will call for an earlier assessment. 09/25/2024 the patient is here for a pulmonary follow-up visit. Overall he is doing okay. He is still working with the Parkinson's with the neurologist. Still having chest congestion. Cough productive in nature. Sometimes difficult to expectorate. He did good in the azithromycin he felt better but was only for 4 weeks. Therefore, is reasonable to restart the azithromycin as a promotility agent and also mild antibiotic effect to help him with his congestion from chronic bronchitis. We can tried this time for about 8 weeks to see if he gets any additional improvement. Will plan to follow-up in 4-6 months. He should also get an EKG which she already has planned sometime in October while he is taking the azithromycin to make sure that his QT is within normal limits. If any issues arise prior to the next visit he will call for an earlier assessment. 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 Mother CVD (cardiovascular disease) Daughter Macular degeneration Sister Colon cancer Cataract Brother Colon cancer Cataract Lung cancer Social History Household Members: Spouse Housing: House Alcohol intake: never Patient Tobacco Use Status: Former Tobacco user Tobacco use type: Cigarette Years Smoked: 15 Years service: Yes ([employer]) Current occupational status: retired Review of Systems Const Denies chills, Denies fatigue, Denies fever(s), Denies frequent falls, Denies weakness, Denies weight gain and Denies weight loss ENT Denies dizziness Card Denies chest pain, Denies leg edema, Denies lightheadedness, Denies palp itations, Denies dyspnea, Reports dyspnea on exertion, Denies orthopnea and Denies other (loss of consciousness) Resp Reports change in phlegm color, Reports chest congestion, Denies cough, Denies dyspnea and Reports dyspnea on exertion GI Denies hematochezia and Denies change in stool character Musc Reports abnormal gait, Denies muscle weakness, Denies numbness, Denies radiating pain into limb and Denies tingling Skin/Breast Denies rash Neuro Reports abnormal gait, Denies dizziness, Denies frequent falls, Denies numbness, Denies tingling, Reports tremor(s) and Denies weakness Endo Denies fatigue and Denies palpitations Physical Exam Vital Signs: Last Vital Signs Pulse 75 09/25/24 10:28 BP 102/62 09/25/24 10:28 Pulse Ox 95 09/25/24 10:28 Oxygen Delivery Method Room Air 09/25/24 10:28 BMI result Body Mass Index 25.3 Const General: cooperative, comfortable, no acute distress, alert and awake Nutritional Appearance: thin Orientation/consciousness: patient oriented x3 HEENT Head: Yes atraumatic Neck Neck: Yes trachea midline, Yes supple and Yes no JVD Chest Chest palpation & inspection: normal inspection of the chest Resp Effort & Inspection: normal respiratory effort Auscultation: no crackles and diminished lung sounds Cardio Jugular venous distension: no JVD Palpation: normal PMI Rate: regular rate Rhythm: regular rhythm Heart sounds: S1 normal heart sound present and S2 normal heart sound present GI Auscultation: normal bowel sounds Skin General skin exam: no rashes or lesions noted Neuro General: patient oriented x3 and no focal motor deficits Extrem General: Yes no clubbing, cyanosis or edema Psych Appearance: grossly normal Assessment & Plan Assessment & Plan (1) ILD (interstitial lung disease): Code(s): J84.9 - Interstitial pulmonary disease, unspecified Category: Medical (2) Pneumoconiosis: Code(s): J64 - Unspecified pneumoconiosis Category: Medical (3) Dyspnea: Code(s): R06.00 - Dyspnea, unspecified Category: Medical Qualifiers: Dyspnea type: shortness of breath Qualified Code(s): R06.02 - Shortness of breath (4) Pleural effusion: Code(s): J90 - Pleural effusion, not elsewhere classified Category: Medical (5) Chronic bronchitis: Code(s): J42 - Unspecified chronic bronchitis Category: Medical Qualifiers: Chronic bronchitis type: mucopurulent Qualified Code(s): J41.1 - Mucopurulent chronic bronchitis Plan Discontinue oxygen EKG restart Azithromycin MWF x 8-12 weeks F/U 4-6 months Medications: New azithromycin Take 1 tablet on Saturday/Saturday/Saturday 250 mg PO 3XW 12 tabs 1RF 28 days K21.9 - Gastro-esophageal reflux disease without esophagitis Coding Level of Care Code Est Pt Level 4 (02040) Diagnoses ILD (interstitial lung disease) J84.9 Pneumoconiosis J64 Shortness of breath R06.02 Dyspnea type: shortness of breath Pleural effusion J90 Mucopurulent chronic bronchitis J41.1 Chronic bronchitis type: mucopurulent Time Spent (min) 16
--- OUTSIDE RECORDS SUMMARY | 2024-09-30 07:19 | XMS_ITS ---
Author Name [facility] Organization Unknown History of Medication Use Medication Directions Dispensed Refills Start Date End Date Stat metoPROLOL TARTRATE (LOPRESSOR) 50 MG tablet Take 1 tablet (50 mg total) by mouth 2 (two) times a day. 08/26/2022 active apixaban (ELIQUIS) 2.5 MG tablet Take 1 tablet (2.5 mg total) by mouth every 12 (twelve) hours around the clock. 09/07/2022 active aspirin enteric coated (ECOTRIN LOW STRENGTH) 81 MG EC tablet Take 1 tablet (81 mg total) by mouth daily. Do not start before August 15, 2022. 08/26/2022 active atorvastatin (LIPITOR) 40 MG tablet Take 1 tablet (40 mg total) by mouth daily. 08/26/2022 active metoPROLOL SUCCINATE (TOPROL-XL) 25 MG 24 hr tablet Take 0.5 tablets (12.5 mg total) by mouth 2 (two) times a day. 09/07/2022 active torsemide (DEMADEX) 20 MG tablet Take 1 tablet (20 mg total) by mouth 2 (two) times a day in the morning and the early evening.. 08/26/2022 active rasagiline (AZILECT) 1 MG tablet Take 1 tablet (1 mg total) by mouth. 08/26/2022 active losartan (COZAAR) 25 MG tablet Take 0.5 tablets (12.5 mg total) by mouth daily. 09/07/2022 active carbidopa-levodopa (SINEMET) 10-100 MG per tablet Take 1 tablet by mouth 2 (two) times a day. 08/26/2022 active furosemide (LASIX) 40 MG tablet 08/26/2022 suspended Problems Problem Status Onset Date Problem Type Date of Resoluti on Source Benign essential hypertension active 2005-07-03 ProblemAc t [facility] Aortic stenosis, severe active 2022-08-30 ProblemAct [facility] Severe aortic insufficiency active 2022-08-08 ProblemAct [facility] Ascending aortic aneurysm active 2022-08-09 ProblemAct [facility] Parkinsonism active 2013-09-28 ProblemAct [facility] S/P AVR (aortic valve replacement) active 2022-08-08 ProblemAct [facility] Von Willebrand disease active 2011-05-12 ProblemAct [facility] Pure hypercholesterolemia active 2005-07-03 ProblemAct [facility] 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-24 ProblemAct [facility] Acute systolic heart failure active 2022-08-31 ProblemAct [facility] LAD stenosis active 2022-08-08 ProblemAct [facility] Severe mitral regurgitation active 2022-08-08 ProblemAct [facility] Immunizations Vaccine Date Source Lot Number Status Td, Unspecified 10/09/2018 [facility] [id number] completed Pneumococcal Polysaccharide 23-Valent 09/26/2012 [facility] [id number] completed Pneumococcal Polysaccharide 23-Valent 05/10/2011 [facility] [id number] completed Td, Unspecified 10/09/2018 [facility] [id number] completed DT 05/01/2005 [facility] completed Tdap 08/02/2014 [facility] completed
== END 2024-09-25 10:48 | disposition home or self-care (01) ==
PROVIDERS: PCP Internal Medicine; Visit Provider Hospitalist
DX: J84.9 Interstitial pulmonary disease, unspecified (principal); J64 Unspecified pneumoconiosis; R06.02 Shortness of breath; J90 Pleural effusion, not elsewhere classified; J41.1 Mucopurulent chronic bronchitis
CPT/HCPCS: 99214

== ENCOUNTER → 2024-09-25 10:14 | Outpatient (BNVA) | payer MEDICARE, OTHER, SELFPAY | PROVIDERS: PCP Internal Medicine; Visit Provider Hospitalist | DX: J41.1 Mucopurulent chronic bronchitis (principal); J42 Unspecified chronic bronchitis; J84.9 Interstitial pulmonary disease, unspecified; J64 Unspecified pneumoconiosis; J90 Pleural effusion, not elsewhere classified; R06.02 Shortness of breath; G20.A1 Parkinson's disease without dyskinesia, without mention of fluctuations; K21.9 Gastro-esophageal reflux disease without esophagitis | CPT/HCPCS: 99212 ==

== ENCOUNTER → 2024-10-27 10:44 | Outpatient (REF) | payer MEDICARE, OTHER, SELFPAY ==
--- NOTE | 2024-10-27 10:49 | CA_ITS ---
Transthoracic Echocardiogram Patient (Last, First, Middle): Bobo Singh P Gender: Male Date of : 1940 Age: 84 Procedure Date: 10/27/2024 Procedure Type: Transthoracic Echocardiogram Location: OP Height: 182.88 cm Weight: 83.92 kg BSA: 2.06 m2 Heart Rate: bpm BP: 110 / 64 mmHg Digital Experience Manager: TO Referring MD: Tristan Doty MD Symptoms: Z95.2 - Presence of prosthetic heart valve Study Quality: Fair ECG Rhythm: Undetermined Conclusions: - The left ventricular systolic function is normal. The calculated ejection fraction is 56% by biplane method. - A bioprosthetic aortic valve is present. The prosthetic aortic valve appears to be functioning normally. - There is mild dilatation of the ascending aorta measuring 4.10 cm. Findings Procedure Information The study quality is limited by the patients inability to tolerate the test. Left Ventricle Normal left ventricular cavity size. The left ventricular systolic function is normal. The calculated ejection fraction is 56% by biplane method. There is no evidence of regional wall motion abnormalities. Evidence suggests grade I (mild) diastolic dysfunction. There is severe septal and severe basal asymmetric hypertrophy. Right Ventricle Normal right ventricular cavity size. There is low normal right ventricular systolic function. Atria The left atrium is moderately dilated. The right atrium is normal in size. Aortic Valve A bioprosthetic aortic valve is present. The prosthetic aortic valve appears to be functioning normally. The mean gradient is 7 mmHg. There is no aortic valve regurgitation. Mitral Valve The mitral valve appears normal. There is trace mitral valve regurgitation. There is no mitral valve stenosis. Pulmonic Valve The pulmonic valve is likely normal. Tricuspid Valve There is mild tricuspid valve regurgitation. There is no evidence of pulmonary hypertension. Great Vessels There is mild dilatation of the ascending aorta measuring 4.10 cm. Venous The inferior vena cava was not well visualized. Pericardium/Pleural There is no evidence of pericardial effusion. Prior Study Comparison No significant change compared to prior study dated: 10/29/2023. Measurements 2D Linear Measurements IVSd: 1.76 0.6-0.9/0.6-1.0 cm LVIDd: 3.62 3.9-5.3/4.2-5.9 cm LVIDd Index: 1.76 2.4-3.2/2.2-3.1 cm/m2 LVIDs: 2.56 2.0-3.6 cm LVPWd: 1.06 0.7-1.1 cm LA Diam: 4.70 2.7-3.8/3.0-4.0 cm LAIDs Index: 2.28 1.5-2.3 cm/m2 LV Mass: 228.44 67-162/88-224 g LV Mass Index: 110.89 43-95/49-115 g/m2 LVOT Diam: 1.90 3.0+(-)1.3 cm 2D Systolic Function EF 4C: 57.00 >55% EF 2C: 52.60 >55% EF BiP: 55.60 >55% Mitral Valve MV VTI: 0.33 MV Pk Silvano: 1.39 MV Mn Silvano: 0.73 MV Pk Grad: 8.00 MV Mn Grad: 2.00 MV Pk E: 0.62 MV PK A: 1.00 MV Decel Time: 209.00 E/A: 0.60 E'Lateral: 6.96 E'Medial: 4.79 E/E' Med: 13.00 E/E' Lat: 8.90 PHT: 61.00 MVA PHT: 3.61 MVA Continuity: 1.82 Decel [place]: 2.97 Aortic Valve AoV Pk Silvano: 1.78 AoV Mn Silvano: 1.23 AoV VTI: 0.36 AoV Pk Grad: 13.00 Aov Mn Grad: 7.00 SELMA Cont.VTI: 1.67 LVOT LVOT Pk Silvano: 1.09 LVOT Mn Silvano: 0.75 LVOT VTI: 0.21 LVOT Pk Grad: 5.00 LVOT Mn Grad: 3.00 LVOT Diam: 1.90 LVOT Area: 2.84 Diastolic Function MV Pk E: 0.62 MV Pk A: 1.00 E/A: 0.60 E'Medial: 4.79 E/E' Med: 13.00 E' Laterial: 6.96 E/E' Lat: 8.90 Right Ventricle TAPSE (mm): 17.10 TVS' Silvano: 10.70 Tricuspid Valve TR Pk Silvano: 1.95 TR Pk Grad: 15.00 Great Vessels Aorta Ao Asc: 4.10 2.1-3.4 cm Updated in Other Vendor System with Status of Final Arturo Liang MD electronically signed on 10/29/2024 10:51:24 AM with status of Final
== END ==
LOC: HO.CARD 10:44
PROVIDERS: PCP Internal Medicine; Visit Provider Internal Medicine Cardiovascular Disease
DX: Z95.2 Presence of prosthetic heart valve (principal)
CPT/HCPCS: 93306

== ENCOUNTER → 2024-10-27 10:49 | Outpatient (BNV) | payer MEDICARE, OTHER, SELFPAY | PROVIDERS: PCP Internal Medicine; Visit Provider Internal Medicine | DX: I42.2 Other hypertrophic cardiomyopathy (principal); Z95.3 Presence of xenogenic heart valve; I36.1 Nonrheumatic tricuspid (valve) insufficiency | CPT/HCPCS: 93306 ==

== ENCOUNTER 2024-12-08 10:10 | Outpatient (AMB) | payer MEDICARE, OTHER, SELFPAY ==
[2024-12-08 10:18] VITALS: BP 120/68; PULSE 62; BMI 24.8
--- NOTE | 2024-12-08 10:18 | A.OFFVIS_ITS ---
Vital Signs 12/08/24 10:18 Height 6 ft Weight 183 lb BMI 24.8 BP 120/68 Blood Pressure Location Lt brachial Position Sitting Pulse 62 Intake Visit Reasons: 1 yr f/up Intake Note: 1year follow-up had ekg already had this month feeling good Assistant Grocery Store Manager Required: No Clinical Practice Consultant: Clinical Practice Consultant Present Accompanied by: Spouse Allergies No Known Allergies Allergy (Verified 09/25/24 10:32) Medication List - Last Reconciled 12/08/24 by Tristan Doty MD aspirin (Ecotrin Low Strength) 81 mg PO DAILY atorvastatin 40 mg PO DAILY carbidopa-levodopa 25-100 mg 1 tab PO BID 90 days losartan 12.5 mg (1/2 x 25 mg) PO DAILY metoprolol tartrate 12.5 mg (1/2 x 25 mg) PO BID polyethylene glycol 3350 (Miralax) 17 grams PO DAILY rasagiline 1 mg PO DAILY HPI Comments Details: Bobo comes for follow-up, accompanied by his . He was no new cardiac complaints. Continues to have limitations related to his Parkinson's disease. Balance was not good but does not use a stick. Denies any progressive shortness of breath, orthopnea, PND. Denies any lightheadedness, syncope. No prolonged palpitation irregular heartbeat. Takes all his medications. Most recent echocardiogram shows normally function bioprosthetic aortic valve. 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 Mother CVD (cardiovascular disease) Daughter Macular degeneration Sister Colon cancer Cataract Brother Colon cancer Cataract Lung cancer Social History Household Members: Spouse Housing: House Alcohol intake: never Patient Tobacco Use Status: Former Tobacco user Tobacco use type: Cigarette Years Smoked: 15 Years service: Yes ([employer]) Current occupational status: retired Review of Systems Const Denies chills, Denies fatigue, Denies fever(s), Denies frequent falls, Denies weakness, Denies weight gain and Denies weight loss ENT Denies dizziness Card Denies chest pain, Denies leg edema, Denies lightheadedness, Denies pa lpitations, Denies dyspnea, Denies dyspnea on exertion, Denies orthopnea and Denies other (loss of consciousness) Resp Denies cough, Denies dyspnea and Denies dyspnea on exertion GI Denies hematochezia and Denies change in stool character Musc Denies abnormal gait, Denies muscle weakness, Denies numbness, Denies radiating pain into limb and Denies tingling Neuro Denies abnormal gait, Denies dizziness, Denies frequent falls, Denies numbness, Denies tingling and Denies weakness Endo Denies fatigue and Denies palpitations Physical Exam Vital Signs: Last Vital Signs Pulse 62 12/08/24 10:18 BP 120/68 12/08/24 10:18 BMI result Body Mass Index 24.8 Const General: cooperative, comfortable, no acute distress, alert and awake Nutritional Appearance: thin Orientation/consciousness: patient oriented x3 Limitations: no limitations Neck Neck: Yes trachea midline, Yes supple and Yes no JVD Resp Effort & Inspection: normal respiratory effort Auscultation: clear to auscultation bilaterally, no rales and no wheezes Cardio Jugular venous distension: no JVD Palpation: normal PMI Rate: regular rate Rhythm: regular rhythm Heart sounds: S1 normal heart sound present, S2 normal heart sound present, no click, no gallops and Murmur heart sound present systolic early, decrescendo and harsh GI Auscultation: normal bowel sounds Skin General skin exam: no rashes or lesions noted Neuro General: patient oriented x3, no focal motor deficits and other (Parkinsonian tremor present) Extrem General: Yes no clubbing, cyanosis or edema Psych Appearance: grossly normal Assessment & Plan Assessment & Plan (1) S/P TAVR (transcatheter aortic valve replacement): Comment: 26 mm bioprosthetic CoreValve, 08/30/2022 for prosthetic valve dysfunction Code(s): Z95.2 - Presence of prosthetic heart valve Category: Surgical Plan: Status post transcatheter aortic valve replacement for failed bioprosthetic surgical aortic valve replacement. Working well clinically. Continue aggressive medical therapy. SBE prophylaxis as per ACC/aha guidelines. Continue low-dose aspirin therapy. Follow-up echocardiogram in 1 year's time. (2) CAD (coronary artery disease): Code(s): I25.10 - Atherosclerotic heart disease of [place] coronary artery without angina pectoris Category: Medical Plan: CAD with prior coronary artery bypass grafting with patent graft. Clinically doing well. No symptoms of angina. Continue low-dose aspirin therapy. Continue aggressive blood pressure control which is currently well optimized. Continue high-intensity statin therapy with target goal LDL less than 70 mg/dL. Advised to call me with any new symptoms. Will follow up in the clinic in 1 year's time, sooner p.r.n.. Thank you for allowing me to partake in his care Coding Level of Care Code Est Pt Level 4 (43844) Complex EM visit Add On G2211 Diagnoses S/P TAVR (transcatheter aortic valve replacement) Z95.2 CAD (coronary artery disease) I25.10
--- OUTSIDE RECORDS SUMMARY | 2024-12-08 11:07 | XMS_ITS | Clinical Summary ---
Author Organization [facility] [address] [place] [address] [place] [phone] Phone Care Team Providers Care Editor At Large Name Role Phone Alize Dela Cruz MD Primary Care Provider [phone] Allergies No known active allergies Medications ADULT LOW DOSE ASPIRIN ORAL Take 82 mg by mouth 1 (one) time each day. Acti ve carbidopa-lev odopa (SINEMET) 10-100 mg per tablet Take 1 tablet by mouth 2 (two) times a day. 022 Active dextran 70/hypromello se (ARTIFICIAL TEARS, PF, OPHT) Administer 2 drops into affected eye(s). Carboxymethylcellulose Sodium Active losartan-hydr oCHLOROthiazi de (HYZAAR) 50-12.5 mg per tablet Take 1 tablet by mouth 1 (one) time each day. Acti ve metoprolol tartrate (LOPRESSOR) 50 mg tablet Take 1 tablet (50 mg total) by mouth 2 (two) times a day. 022 Active rasagiline (AZILECT) 1 mg tablet Take 1 tablet (1 mg total) by mouth 1 (one) time each day. Active atorvastatin (LIPITOR) 40 mg tablet Take 1 tablet (40 mg total) by mouth 1 (one) time each day. 90 tablet 1 025 Active Active Problems Problem Noted Date Diagnosed Date DNR (do not resuscitate) 10/12/2024 Basal cell carcinoma (BCC) of face 05/11/2024 COVID-19 08/23/2022 Overview (09/05/2024): shortness of breath cough fever, hospitalization for most likely CHF with left pleural effusion see discharge summary [facility] Jul, 2022 CAD (coronary artery disease) 08/18/2018 Overview (09/05/2024): Single vessel CABG after discovery by Cath for preop for aortic valve replacement Parkinsonism 09/28/2013 Overview (09/05/2024): Follows with neurology, Dr. Chaudhry Aortic stenosis 03/15/2010 Overview (09/05/2024): Moderate by echo 12/2009. S/p aortic valve replacement with a bovine valve, 04/30 Diverticulitis of colon without hemorrhage 10/24 Overview (09/05/2024): Incidental finding at colonoscopy 10/24/2006. Benign neoplasm of rectum and anal canal 006 Overview (09/05/2024): Colonoscopy 11.2.05. Large sessile rectal lesion, adenomatous with carcinoma in situ. Smaller adenomatous polyp in the sigmoid colon. Endoscopic and surgical resection. Colonoscopy ..07. Rectal scar noted. No evidence of recurrent lesion. Small 4- mm hyperplastic polyp at 10 cm in the rectum in an area separate from the prior large polyp. Negative colonoscopy 2014; no colon cancer screening needed for 5 years. Essential hypertension, benign 07/03/2005 Pure hypercholesterolemia 07/03/2005 Encounters Date Type Department Care Team Description 10/28/2024 10:00 AM EST Consult Adult Medicine [address] [phone] Alize Dela Cruz MD Preop cardiovascular exam (Primary Dx); Primary parkinsonism (CMS/HCC); Coronary artery disease involving [place] heart without angina pectoris, unspecified vessel or lesion type; Aortic valve stenosis, etiology of cardiac valve disease unspecified; Essential hypertension, benign 10/12/2024 2:30 PM EST Office Visit Adult Medicine [address] [phone] Alize Dela Cruz MD Coronary artery disease involving [place] heart without angina pectoris, unspecified vessel or lesion type (Primary Dx); Essential hypertension, benign; Primary parkinsonism (CMS/HCC); Pure hypercholesterolemia; DNR (do not resuscitate) from Last 3 Months Immunizations Name Administration Dates Next Due Pneumococcal polysaccharide 23 valent (Pneumovax 23) 2yo and older 09/26/2012,05/10/2011 Td Tetanus diptheria (Tdvax) 7yo and older 10/09,05/01/2005,05/01/2005 Tdap Tetanus diptheria acell ular pertussis (Boostrix; Adacel) 7yo and older 08/02/2014 Surgical History Surgery Date Site/Laterality Comments COLONOSCOPY 01/26/2010 PROCEDURE: HISTORICAL COLONOSCOPY; COMMENT: No polyps OTHER SURGICAL HISTORY PROCEDURE: [place] RADIAL KERATOTOMY; COMMENT: raphael sugery x 10 years COLONOSCOPY 2014 PROCEDURE: HISTORICAL COLONOSCOPY; COMMENT: no polyps Medical History Medical History Date Comments Essential hypertension, benign 07/03/05 D X:Essential hypertension, benign Pure hypercholesterolemia 07/03/05 DX:Pur e hypercholesterolemia Hemorrhage of gastrointestin al tract, unspecified 06/08/05 DX:Hemorrhage of gastrointes tinal tract, unspecified Asbestosis(501) DX:Asbestosis(50 1) Benign neoplasm of rectum an d anal canal 12/24/2005 DX:Benign neoplasm of rectum and anal canal; COMMENT: Colonoscopy 11.05. Large sessile rectal lesion, adenomatous with carcinoma in situ. Smaller adenomatous polyp in the sigmoid colon. Endoscopic and surgical resection. Colonoscopy .01.25. Rectal scar noted. No evidence of recurrent lesion. Small 4-mm polyp at 10 cm in the rectum in an area separate from the prior large polyp. Next colo* Diverticulosis of colon (wit hout mention of hemorrhage) 10/24/2006 DX:Diverticulosis of colon ( without mention of hemorrhage); COMMENT: Incidental finding at colonoscopy 10/24/2006. Family history of malignant neoplasm of gastrointestinal tract 10/24/2006 DX:Family history of maligna nt neoplasm of gastrointestinal tract; COMMENT: Sister with diagnosis of colorectal cancer age 68, brother with diagnosis of colorectal cancer age 70. First-degree relatives x 2 risk category. Esophageal reflux DX:Esophageal reflux Aortic valve replaced 10/01/2011 DX:Aortic valve replaced Parkinsonism (CMS/HCC) 09/28/2013 DX:[place] sonism ([facility]); COMMENT: Follows with neurology, Dr. Chaudhry Aortic valve replaced 10/01/2011 DX:Aortic valve replaced; COMMENT: Single vessel CABG performed after preoperative Cath Follows with Dr. Byrd Basal cell carcinoma (BCC) of face 05/11/2024 DX:Basal cell carcinoma (BCC) of face Family History Medical History Relation Name Comments Cataracts Brother 1 Colon cancer Brother 1 Lung cancer Brother 2 Macular degeneration Daughter 1 Cataracts Sister 1 Colon cancer Sister 1 Blindness Neg Hx Glaucoma Neg Hx Strabismus Neg Hx Relation Name Status Comments Brother 1 Brother 2 Brother 3 Alive lung cancer, mu ltiple myeloma Daughter 1 Alive Daughter 2 Alive Daughter 3 Alive Daughter 4 Alive Father stomach cancer Mother heart problems Sister 1 Sister 2 colon cancer Social History Tobacco Use Types Packs/Day Years Used Date Smoking Tobacco: Former Cigarettes Q uit: 10/21/1969 Smokeless Tobacco: Never Tobacco Cessation:Counseling Given: Not Answered Alcohol Use Standard Drinks/Week Comments No 0 (1 standard drink = 0.6 oz pur e alcohol) Sex and Gender Information Value Date Recorded Sex Assigned at Not on file Legal Sex Male 3:26 PM EST Gender Identity Not on file Sexual Orientation Not on file Obstetrics History Last Filed Vital Signs Vital Sign Reading Time Taken Comments Blood Pressure 110/64 10/28/2024 10:04 AM EST Pulse 80 10/28/2024 10:04 AM EST Temperature 36 ??C (96.8 ??F) 10/28/2024 10:04 AM EST Respiratory Rate 16 10/28/2024 10:04 AM EST Oxygen Saturation - - Inhaled Oxygen Concentration - - Weight 85.7 kg (189 lb) 10/28/2024 10:04 AM EST Height 182.9 cm (6') 10/28/2024 10:04 AM EST Body Mass Index 25.63 10/28/2024 10:04 AM EST Plan of Treatment Upcoming Encounters Date Type Department Care Team (Late st Contact Info) Description 05/03/2025 1:00 PM EDT Office Visit Adult Medicine [address] [phone] Alize Dela Cruz MD [address] [place] [address] Health Maintenance Due Date Last Done Comments Zoster Vaccines (1 of 2) 1959 Pneumococcal Vaccine: 50+ Years (3 of 3 - PCV) 09/26/2013 09/26/2012, 05/10/2011 RSV Immunization Patients 60+ Years Old (1 - 1-dose 75+ series) 2016 COVID-19 Vaccine (3 - Pfizer risk series) 01/07/2021 12/10/2020, 11/19/2020 Colorectal Cancer Screening: Colonoscopy 09/29/2022 04/26/2015 Social Influencers of Health Screening 09/29/2022 Influenza Vaccine (#1) 2024 Hypertension/CHF/CAD Annual BMP Blood Test 01/02/2025 01/03/2024 Depression Screening 05/11/2025 05/11/2024 Falls Risk Assessment 05/11/2025 05/11/2024 Medicare Annual Wellness Visit 05/11/2025 05/11/2024 DTaP,Tdap,and Td Vaccines (5 - Td or Tdap) 10/09/2028 10/09/2018, 08/02/2014, 05/01/2005, Additional history exists Cholesterol Screening (Lipid Panel) 01/02/2029 01/03/2024 HIB Vaccines Aged Out No longer eligi ble based on patient's age to complete this topic HPV Vaccines Aged Out No longer eligi ble based on patient's age to complete this topic Hepatitis A Vaccines Aged Out No long er eligible based on patient's age to complete this topic Hepatitis B Vaccines Aged Out No long er eligible based on patient's age to complete this topic IPV Vaccines Aged Out No longer eligi ble based on patient's age to complete this topic MMR Vaccines Aged Out No longer eligi ble based on patient's age to complete this topic Meningococcal ACWY Vaccine Aged Out N o longer eligible based on patient's age to complete this topic Meningococcal B Vacine Aged Out No lo nger eligible based on patient's age to complete this topic RSV Immunization Patients Under 20 months Aged Out No longer eligible based on patient's age to complete this topic Varicella Vaccines Aged Out No longer eligible based on patient's age to complete this topic Procedures Procedure Name Priority Date/Time Associated Diagnosis Comments ECG 12-LEAD Routine 10/29/2024 9:06 AM EST Preop cardiovascular exam DEPRESSION SCREENING Routine 05/11/2024 FALLS RISK ASSESSMENT Routine 05/11/2024 ANNUAL BMP BLOOD TEST Routine 01/03/2024 LIPID PANEL Routine 01/03/2024 COLONOSCOPY Routine 04/26/2015 from Last 3 Months or Most Recently Relevant to Health Maintenance Results * ECG 12 lead (10/29/2024 9:06 AM EST) Alize Elizondo MD - 10/29/2024 9:06 AM EST In my office showed a normal sinus rhythm and nonspecific ST-T changes. ?? EKG reviewed by me and compared with previous tracing. ??No acute ischemic changes. ??Final reading by cardiology still pending Alize Dela Cruz MD ECG ORDERABLES Final Result * Falls Risk Assessment (05/11/2024) [facility] Falls Risk Assessment abstracted Result [facility] Provider HEALTH MAINTENANCE Final Result * Depression Screening (05/11/2024) [facility] Depression Screening abstracted Result [facility] Provider HEALTH MAINTENANCE Final Result * Annual BMP Blood Test (01/03/2024) [facility] Annual BMP Blood Test abstracted [facility] Provider HEALTH MAINTENANCE Final Result * (ABNORMAL) Lipid panel (01/03/2024) [facility] LDL/HDL Ratio 3 0 - 4 Triglycerides 57 0 - 150 mg/dL Cholesterol 103 0 - 200 mg/dL HDL 37(A) >=40 mg/dL LDL Cholesterol 55 0 - 100 mg/dL Blood Venous blood specimen / Unknown Result [facility] Historical [facility] BLOOD ORDERABLES Barbara l Result * Colonoscopy (04/26/2015) Colonoscopy no interpretation , abstracted Anatomical Region Laterality Modality Other us Historical Provider HEALTH MAINTENANCE Final Result from Last 3 Months or Most Recently Relevant to Health Maintenance Insurance MEDICARE [facility] Advance Directives Documents on File Type Date Recorded Patient Water Service Supervisor Expl anation Health Care Decision (hx) 08/06/2022 AD ACOSTA DIRECTIVE Health Care Decision (hx) 08/02/2022 AD ACOSTA DIRECTIVE Care Teams Editor At Large Relationship Specialty Start Date End Date Alize Dela Cruz MD [address] [place] [address] PCP - General Internal Medicine 11/16/15
--- OUTSIDE RECORDS SUMMARY | 2024-12-08 11:07 | XMS_ITS | Encounter Summary ---
Author Organization [facility] Address [address] [place] [address] Care Team Providers Care Sales Property Manager Name Role Phone Alize Dela Cruz MD Primary Care Provider [phone] Encounter Details Date Type Department Care Team (Late st Contact Info) Description 11/20/2022 Scanned Document [address] [facility] [address] [place] [phone] Provider, Generic Social History Tobacco Use Types Packs/Day Years Used Date Smoking Tobacco: Former Cigarettes Smokeless Tobacco: Never Alcohol Use Standard Drinks/Week Comments Never 0 (1 standard drink = 0.6 oz pur e alcohol) AUDIT-C Answer Date Recorded Q1: How often do you have a drink containing alcohol? Never 09/01/2022 Q2: How many drinks containi ng alcohol do you have on a typical day when you are drinking? Patient does not drink Q3: How often do you have si x or more drinks on one occasion? Never 09/01/2022 Sex and Gender Information Value Date Recorded Sex Assigned at Not on file Gender Identity Not on file Sexual Orientation Not on file documented as of this encounter Plan of Treatment Not on file documented as of this encounter Procedures Procedure Name Priority Date/Time Associated Diagnosis Comments CARDIOLOGY ECHO 11/20/2022 12:52 PM EST documented in this encounter Results * CARDIOLOGY ECHO (11/20/2022 12:52 PM EST) Anatomical Region Laterality Modality Other Narrative 11/20/2022 12:52 PM EST Ordered by an unspecified provider. Generic Provider HX AMB PROCEDURES documented in this encounter Visit Diagnoses Not on filedocumented in this encounter Care Teams Sales Property Manager Relationship Specialty Start Date End Date Alize Dela Cruz MD [address] [place] [phone] PCP - General 08/09/22 documented as of this encounter
--- OUTSIDE RECORDS SUMMARY | 2024-12-08 11:07 | XMS_ITS | Encounter Summary ---
Author Organization [facility] Address [address] [place] [address] Care Team Providers Care Manager Hvac Name Role Phone Alize Dela Cruz MD Primary Care Provider [phone] Encounter Details Date Type Department Care Team (Late st Contact Info) Description 11/14/2022 Scanned Document [address] [facility] [address] [place] [phone] Cardiology, Scan Social History Tobacco Use Types Packs/Day Years [...] on file documented as of this encounter Visit Diagnoses Not on filedocumented in this encounter Care Teams Manager Hvac Relationship Specialty Start Date End Date Alize Dela Cruz MD [address] [place] [phone] PCP - General 08/09/22 documented as of this encounter
--- OUTSIDE RECORDS SUMMARY | 2024-12-08 11:07 | XMS_ITS | Clinical Summary ---
Author Organization [facility] Address [address] [place] [address] Care Team Providers Care Property Management Intern Name Role Phone Alize Dela Cruz MD Primary Care Provider [phone] Allergies No known active allergies Medications Medication Sig Dispensed Refills Start Date End Date Status atorvastatin (LIPITOR) 40 MG tablet Take 1 tablet (40 mg total) by mouth daily. 06/22/2022 Active carbidopa-levodopa (SINEMET) 10-100 MG per tablet Take 1 tablet by mouth 2 (two) times a day. 01/30/2022 Active rasagiline (AZILECT) 1 MG tablet Take 1 tablet (1 mg total) by mouth. Active torsemide (DEMADEX) 20 MG tabletIndications:Merry re aortic insufficiency Take 1 tablet (20 mg total) by mouth 2 (two) times a day in the morning and the early evening.. 60 tablet 08/14/2022 Active metoPROLOL SUCCINATE (TOPROL-XL) 25 MG 24 hr tablet Take 0.5 tablets (12.5 mg total) by mouth 2 (two) times a day. Active apixaban (ELIQUIS) 2.5 MG tabletIndications:S/P TAVR (transcatheter aortic valve replacement) Take 1 tablet (2.5 mg total) by mouth every 12 (twelve) hours around the clock. 60 tablet 09/01/2022 Active losartan (COZAAR) 25 MG tabletIndications:Toribio gn essential hypertension Take 0.5 tablets (12.5 mg total) by mouth daily. 15 tablet 09/01/2022 Active Active Problems Problem Noted Date Diagnosed Date Acute systolic heart failure 08/31/2022 Aortic stenosis, severe 08/30/2022 Ascending aortic aneurysm 08/09/2022 Severe aortic insufficiency 08/08/2022 S/P AVR (aortic valve replacement) 201008/08/20 22 Severe mitral regurgitation 08/08/2022 LAD stenosis 08/08/2022 Parkinsonism 09/28/2013 Overview (08/08/2022): Follows with neurology, Dr. Chaudhry Aortic valve replaced 10/01/2011 Overview (08/08/2022): Single vessel CABG performed after preoperative Cath Follows with Dr. Byrd Von Willebrand disease 05/12/2011 CAD (coronary artery disease) 05/08/2011 Overview (08/08/2022): Single vessel CABG after discovery by Cath for preop for aortic valve replacement Benign neoplasm of rectum and anal canal 006 Overview (08/08/2022): Colonoscopy 11.2.05. Large sessile rectal lesion, adenomatous with carcinoma in situ. Smaller adenomatous polyp in the sigmoid colon. Endoscopic and surgical resection. Colonoscopy 1.4.07. Rectal scar noted. No evidence of recurrent lesion. Small 4- mm hyperplastic polyp at 10 cm in the rectum in an area separate from the prior large polyp. Negative colonoscopy 2014; no colon cancer screening needed for 5 years. Benign essential hypertension 07/03/2005 Pure hypercholesterolemia 07/03/2005 Immunizations Name Administration Dates Next Due DT 05/01/2005 Pneumococcal Polysaccharide 23-Valent 09/26/2012 ,05/10/2011 Td, Unspecified 10/09/2018 Tdap 08/02/2014 Family History Medical History Relation Name Comments Cataracts Brother Lung cancer Brother Multiple myeloma Brother Macular degeneration Daughter Stomach cancer Father Heart disease Mother Cataracts Sister Colon cancer Sister Relation Name Status Comments Brother Daughter Alive Father Mother Sister Social History Tobacco Use Types Packs/Day Years Used Date Smoking Tobacco: Former Cigarettes Smokeless Tobacco: Never Tobacco Cessation:Counseling Given: Not Answered Alcohol Use Standard Drinks/Week Comments Never 0 [...] on file Sexual Orientation Not on file Last Filed Vital Signs Vital Sign Reading Time Taken Comments Blood Pressure 130/71 09/01/2022 12:27 PM EST Pulse 75 09/01/2022 12:27 PM EST Temperature 36.1 ??C (97 ??F) 09/01/2022 12:27 PM EST Respiratory Rate 16 09/01/2022 8:50 AM EST Oxygen Saturation 96% 09/01/2022 12:27 PM EST Inhaled Oxygen Concentration - - Weight 74.4 kg (164 lb) 08/31/2022 6:45 PM EST Height 182.9 cm (6') 08/31/2022 6:45 PM EST Body Mass Index 22.24 08/31/2022 6:45 PM EST Plan of Treatment Health Maintenance Due Date Last Done Comments Zoster (Shingles) Vaccine (1 of 2) 1991 Pneumococcal Vaccines 50+ (2 of 2 - PCV) 09/26/2013 09/26/2012, 05/10/2011 RSV Vaccine 60 years and older and Patients (1 - 1-dose 75+ series) 2016 Influenza Vaccine 05/21/2024 COVID-19 Vaccine (3 - 2023-2 5 season) 2024 12/10/2020, 11/19/2020 DTaP/Tdap/Td Vaccines (4 - T d or Tdap) 10/09/2028 10/09/2018, 08/02/2014, 05/01/2005 Hepatitis B Vaccines Aged Out No long er eligible based on patient's age to complete this topic Medical Devices Implanted Type Area Chemical Dependency Attendant Device Identifier Shelf Expiration Date Model / Serial / Lot Medtronic Evolut Fx Transcatheter Aortic Valve Implanted:Qty: 1 on 08/30/2022 by Yvon Han MD at [facility] Valve N/A: Aorta Medtronic [id number] 06/10/2024 EVOLUTFX- 26 / [id number] / Description:valve prepared david Davis Medtronic Rep SN, valve size, and freeze watch verified by Kandice Davis Medtronic and Amada Rogel RN Advance Directives * Full Code (Latest Code Status on File) Date Activated Date Inactivated Comments 08/31/2022 1:13 AM * Full Code Date Activated Date Inactivated Comments 08/30/2022 1:11 PM 08/31/2022 1:13 AM * Full Code Date Activated Date Inactivated Comments 08/08/2022 9:36 PM 08/30/2022 11:26 AM Care Teams Property Management Intern Relationship Specialty Start Date End Date Alize Dela Cruz MD [address] [place] [id number] PCP - General 08/09/22
--- OUTSIDE RECORDS SUMMARY | 2024-12-08 11:07 | XMS_ITS | Encounter Summary ---
Author Organization [facility] Address [address] [place] [address] Care Team Providers Care Crusher Assembler Name Role Phone Alize Dela Cruz MD Primary Care Provider [phone] Encounter Details Date Type Department Care Team (Late st Contact Info) Description 10/29/2023 Scanned Document [address] [facility] [address] [place] [phone] Cardiology, Scan Social History Tobacco Use [...] on filedocumented in this encounter Care Teams Crusher Assembler Relationship Specialty Start Date End Date Alize Dela Cruz MD [address] [place] [id number] PCP - General 08/09/22 documented as of this encounter
--- OUTSIDE RECORDS SUMMARY | 2024-12-08 11:07 | XMS_ITS | Encounter Summary ---
Author Organization [facility] Address [address] [place] [address] Care Team Providers Care Sales Representative Leather Goods Name Role Phone Alize Dela Cruz MD Primary Care Provider [phone] Encounter Details Date Type Department Care Team (Late st Contact Info) Description 09/18/2022 Scanned Document [address] [phone] Cardiology, Scan Social History Tobacco Use [...] on file Sexual Orientation Not on file COVID-19 Exposure Response Date Recorded In the last 10 days, have yo u been in contact with someone who was confirmed or suspected to have Coronavirus/COVID-19? No / Unsure 08/30/2022 11:16 AM EST documented as of this encounter Plan of Treatment Not on file documented as of this encounter Procedures Procedure Name Priority Date/Time Associated Diagnosis Comments LAB RESULT 09/26/2022 documented in this encounter Results * LAB RESULT (09/26/2022) Scan Cardiology HX AMB PROCEDURES documented in this encounter Visit Diagnoses Not on filedocumented in this encounter Care Teams Sales Representative Leather Goods Relationship Specialty Start Date End Date Alize Dela Cruz MD [address] [place] [address] [phone] PCP - General 08/09/22 documented as of this encounter
--- OUTSIDE RECORDS SUMMARY | 2024-12-08 11:07 | XMS_ITS | Encounter Summary ---
Author Organization [facility] Address [address] [place] [address] Care Team Providers Care Fretted String Instrument Repairer Name Role Phone Alize Dela Cruz MD Primary Care Provider [phone] Encounter Details Date Type Department Care Team (Late st Contact Info) Description 09/12/2022 Scanned Document [address] [phone] Cardiology, Scan Social History Tobacco [...] Priority Date/Time Associated Diagnosis Comments ECG 12-LEAD 09/12/2022 documented in this encounter Results * ECG 12-LEAD (09/12/2022) Scan Cardiology ECG ORDERABLES documented in this encounter Visit Diagnoses Not on filedocumented in this encounter Care Teams Fretted String Instrument Repairer Relationship Specialty Start Date End Date Alize Dela Cruz MD [address] [place] [id number] PCP - General 08/09/22 documented as of this encounter
== END 2024-12-08 10:34 | disposition home or self-care (01) ==
PROVIDERS: PCP Internal Medicine; Visit Provider Internal Medicine Cardiovascular Disease
DX: Z95.2 Presence of prosthetic heart valve (principal); I25.10 Atherosclerotic heart disease of native coronary artery without angina pectoris
CPT/HCPCS: 99214; G2211

== ENCOUNTER → 2024-12-08 10:10 | Outpatient (BNVA) | payer MEDICARE, OTHER, SELFPAY | PROVIDERS: PCP Internal Medicine; Visit Provider Internal Medicine Cardiovascular Disease | DX: I25.10 Atherosclerotic heart disease of native coronary artery without angina pectoris (principal); Z95.2 Presence of prosthetic heart valve | CPT/HCPCS: 99212 ==

== ENCOUNTER 2025-02-11 10:05 | Outpatient (AMB) | payer MEDICARE, OTHER, SELFPAY ==
--- NOTE | 2025-02-11 10:13 | MHC.OFFVIS ---
Vital Signs 02/11/25 10:14 Height 6 ft Weight 185 lb BMI 25.1 Pulse 64 Pulse Source Pulse Oximeter Pulse Oximetry (%) 100 Oxygen Delivery Method Room Air Intake Visit Reasons: 6 mo follow up-Unable to LM Intake Note: Patient presents for follow up parkinson's patient on carbidopa levodopa Allergies No Known Allergies Allergy (Verified 02/11/25 10:15) Medication List - Last Reconciled 02/11/25 by Caitlin Brar MD aspirin (Ecotrin Low Strength) 81 mg PO DAILY atorvastatin 40 mg PO DAILY carbidopa-levodopa 25-100 mg 1 tab PO BID 90 days losartan 12.5 mg (1/2 x 25 mg) PO DAILY metoprolol tartrate 12.5 mg (1/2 x 25 mg) PO BID polyethylene glycol 3350 (Miralax) 17 grams PO DAILY rasagiline 1 mg PO DAILY HPI Comments Details: 84y/o ambidextrous male comes for follow up of Parkinsons disease after more than a year.He is worse - slower, tremors are worse. Speech is worse , drools more. No dysphagia. He is independnat in all his ADLs. He walks a mile a day. He has persistent rest tremors in both his hands but it does not bother him.He denies any side effects. He is independent in all his ADLs.No falls.Mood is stable . sleep is good. Memory is stable Initial History-He was diagnosed 11years ago when he presented with left hand tremors.His symptoms have progressed gradually. He has rare word finding difficulties.He has vivid dreams and yells in sleep 4-5/year.No snoring.He has daytime fatigue No depression or anxiety.He likes to walk with his dog. He had 3 falls . He was on oxygen at that time - took it out to use the bathroom and fell down . He is off the oxygen now and is doing good. He has drooling, voice is softer handwriting is small.He is slower in using utensils, dressing ,showering.He has trouble moving in bed.His is walking good. He used to walk 5 miles a day and has decreased to 1 mile since his heart ( valve replacement)TARV. He denies hallucinations, dizziness, nausea, vomiting. He has constipation. He was [place] when he was younger.No head injury. 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 Mother CVD (cardiovascular disease) Daughter Macular degeneration Sister Colon cancer Cataract Brother Colon cancer Cataract Lung cancer Social History Household Members: Spouse Housing: House Alcohol intake: never Patient Tobacco Use Status: Former Tobacco user Tobacco use type: Cigarette Years Smoked: 15 Years service: Yes ([employer]) Current occupational status: retired Physical Exam Vital Signs: Last Vital Signs Pulse 64 02/11/25 10:14 Pulse Ox 100 02/11/25 10:14 Oxygen Delivery Method Room Air 02/11/25 10:14 BMI result Body Mass Index 25.1 Const General: cooperative and healthy appearing Nutritional Appearance: average body habitus Orientation/consciousness: patient oriented x3 Limitations: no limitations HEENT Head: Yes normal to inspection and Yes normocephalic Face and sinus: Yes normal facial exam Neuro Other: High amplitude rest tremors L>R Chin tremors Decreased FFM and foot taps - L>R Mild decreased facial expression and blink Mild hypophonia and dysprosody Gait- stooped, decreased arm swings kevin L>R , good stride and speed Decreased range of motion of neck , antecollis Right UE cog wheel rigidty 2 + General: patient oriented x3 Cranial nerves: Yes Nystagmus not present and Yes Normal facial strength present Coordination: [id number] test normal Assessment & Plan Assessment & Plan (1) Parkinson's disease: Code(s): G20 - Parkinson's disease Category: Medical Qualifiers: Dyskinesia presence: without dyskinesia Fluctuating manifestations: without fluctuating manifestations Qualified Code(s): G20.A1 - Parkinson's disease without dyskinesia, without mention of fluctuations Plan Continue to take Sinemet 25/100 BID with Rasagiline 1mg qd. Stretching exercises, and walking daily. Pt does not want it at this time. Medications: Refilled carbidopa-levodopa 25-100 mg 1 tab PO BID 90 days 180 tabs 2RF rasagiline 1 mg PO DAILY 90 tabs 4RF Coding Level of Care Code Est Pt Level 4 (64900) Complex EM visit Add On G2211 Diagnoses Parkinson's disease without dyskinesia or fluctuating manifestations G20.A1 Dyskinesia presence: without dyskinesia Fluctuating manifestations: without fluctuating manifestations
[2025-02-11 10:14] VITALS: PULSE 64; O2SAT 100; BMI 25.1
--- OUTSIDE RECORDS SUMMARY | 2025-02-11 11:33 | XMS_ITS | Encounter Summary ---
Author Organization [facility] Address [address] [place] [address] Care Team Providers Care Hospital Tray Service Worker Name Role Phone Alize Dela Cruz MD Primary Care Provider [phone] Reason for Visit * Reason Comments E-prescribe Rx Request Encounter Details Date Type Department Care Team Description 11/14/2023 Refill Adult Medicine [address] [id number] Alize Dela Cruz MD [address] [place] [address] [phone] E-prescribe Rx Request Social History Tobacco Use Types Packs/Day Years Used Date Smoking Tobacco: Former Cigarettes 0.5 20 Q uit: [birth year]/21/1969 Smokeless Tobacco: Never Alcohol Use Standard Drinks/Week Comments No 0 (1 standard drink = 0.6 oz pur e alcohol) Sex Assigned at Date Recorded Not on file Job Start Date Occupation Industry Not on file Not on file Not on file documented as of this encounter Miscellaneous Notes * Telephone Encounter - Lolita Tolentino M.A. - 11/14/2023 8:32 AM EST Last office visit 08/07/23 Next office visit 01/09/24 Lab Results Component Value Date CHOL 125 11/19/2022 LDL 67 11/19/2022 HDL 45 11/19/2022 TRIG 65 11/19/2022 SGOT 22 11/19/2022 SGPT 7 11/19/2022 * Telephone Encounter - Beverly Porter - 11/14/2023 8:05 AM EST Patient would like script to be: E-PRESCRIBED/FAXED TO PHARMACY WHEN WAS THE PATIENT'S LAST APPOINTMENT IN ADULT MEDICINE? 08/07/23 WHEN WAS THE LAST TIME THE PATIENT SAW THEIR PCP? Same as above Does patient have an upcoming appointment? Yes 01/09/24 (THE MEDICATION REQUESTED IS ON THE MED LIST ABOVE) All of the medications requested were on the CURRENT MEDS list Did you check the Pharmacy information above?: YES Patient wants: 30 -day supply Is this a mail order prescription request ? NO If the refill is from a FAXED refill request what is the RX # listed on the fax? N/A Patients current insurance carrier is: [place] / [place] / Product Type: MEDICARE [id number] documented in this encounter Plan of Treatment Not on file documented as of this encounter Visit Diagnoses Not on filedocumented in this encounter Care Teams Hospital Tray Service Worker Relationship Specialty Start Date End Date Alize Dela Cruz MD [address] [place] [address] [phone] PCP - General Internal Medicine 11/16/15 documented as of this encounter
--- OUTSIDE RECORDS SUMMARY | 2025-02-11 11:33 | XMS_ITS | Encounter Summary ---
Author Organization [facility] Address [address] [place] [address] Care Team Providers Care Inorganic Chemistry Professor Name Role Phone Delicia, Nixon CHAVES Primary Care Provider Alize Salazar MD Primary Care Provider [phone] Reason for Visit * Reason Comments E-prescribe Rx Request Encounter Details Date Type Department Care Team Description 06/19/2012 Refill Cardiology - [address] [phone] Name, MD Nixon E-prescribe Rx Request Social History Tobacco Use Types Packs/Day Years Used Date Smoking Tobacco: Former Cigarettes Q uit: 10/21/1969 Smokeless Tobacco: Never Alcohol Use Standard Drinks/Week Comments No 0 (1 standard drink = 0.6 oz pur e alcohol) Sex Assigned at Date Recorded Not on file Job Start Date Occupation Industry Not on file Not on file Not on file documented as of this encounter Miscellaneous Notes * Telephone Encounter - Maia Hoffmann M.A. - 06/20/2012 9:23 AM EDT appt needs to be sooner has never seen his pcp Last seen in med was 09/2011 * Telephone Encounter - Italia Gonzales - 06/20/2012 8:57 AM EDT WHEN WAS THE PATIENT'S LAST APPOINTMENT IN ADULT MEDICINE? 10/01/11 WHEN WAS THE LAST TIME THE PATIENT SAW THEIR PCP? Not seen yet Does patient have an upcoming appointment? Yes 09/26/12 (THE MEDICATION REQUESTED IS ON THE MED LIST ABOVE) All of the medications requested were on the CURRENT MEDS list Did you check the Pharmacy information above?: YES Patient wants: 30 -day supply Is this a mail order prescription request ? NO Indicate how soon the patient needs the script: BY THE END OF THE DAY Patient would like script to be: E-PRESCRIBED/FAXED TO PHARMACY If the patients Provider is not in tell the patient that the covering provider will get the request. Patients current insurance carrier is: [place] Plan[place] Product Type: MEDICARE [id number] documented in this encounter Plan of Treatment Not on file documented as of this encounter Visit Diagnoses Not on filedocumented in this encounter Care Teams Inorganic Chemistry Professor Relationship Specialty Start Date End Date Name, MD Nixon PCP - General 03/21/11 11/15/15 Alize Dela Cruz MD [address] [place] [id number] PCP - General Internal Medicine 11/16/15 documented as of this encounter
--- OUTSIDE RECORDS SUMMARY | 2025-02-11 11:33 | XMS_ITS | Encounter Summary ---
Author Organization [facility] Address [address] [place] [address] Care Team Providers Care Theatrical Dresser Name Role Phone Name, Nixon CHAVES Primary Care Provider Alize Salazar MD Primary Care Provider [phone] Encounter Details Date Type Department Care Team Description 12/01/2014 Manager Money Report Medical Records [address] [place] [id number] Aiden Rivera MD Social History Tobacco Use Types Packs/Day Years [...] on filedocumented in this encounter Care Teams Theatrical Dresser Relationship Specialty Start Date End Date Name, MD Nixon PCP - General 03/21/11 11/15/15 Alize Dela Cruz MD [address] [place] [phone] PCP - General Internal Medicine 11/16/15 documented as of this encounter
--- OUTSIDE RECORDS SUMMARY | 2025-02-11 11:33 | XMS_ITS | Encounter Summary ---
Author Organization [facility] Address [address] [place] [address] Care Team Providers Care Production Illustrator Name Role Phone Alize Dela Cruz MD Primary Care Provider [phone] Encounter Details Date Type Department Care Team Description 04/16/2022 Orders Only Adult Medicine [address] [phone] Evangelista Kemp MD Preoperative examination; Screening for deficiency anemia Social History Tobacco Use Types Packs/Day Years Used Date Smoking Tobacco: Former Cigarettes 0.5 20 Q uit: 10/21/1969 Smokeless Tobacco: Never Alcohol Use Standard Drinks/Week Comments No 0 (1 standard drink = 0.6 oz pur e alcohol) Sex Assigned at Date Recorded Not on file Job Start Date Occupation Industry Not on file Not on file Not on file COVID-19 Exposure Response Date Recorded In the last 10 days, have yo u been in contact with someone who was confirmed or suspected to have Coronavirus/COVID-19? No / Unsure 04/17/2022 8:23 AM EDT documented as of this encounter Plan of Treatment Not on file documented as of this encounter Results * (ABNORMAL) BASIC METABOLIC PANEL (04/17/2022 8:24 AM EDT) GLUCOSE 110(H) 70 - 100 mg/dL 04/17/2022 10:03 AM EDT [facility] Comment:Reference range appl icable to fasting specimens only Blood Urea Nitrogen 29(H) 5 - 25 mg/dL 04/17/2022 10:03 AM EDT [facility] CREAT 1.06 0.7 - 1.3 mg/dL 04/17/2022 10:03 AM EDT [facility] GLOMERULAR FILTRATION RATE > 60 04/17/2022 10:03 AM EDT [facility] Comment: If patient is -Macedonian, multiply result by 1.21 Chronic Kidney Disease: < 60 ml/min/1.73 square meters Kidney Failure: < 15 ml/min/1.73 square meters NA 142 135 - 145 mEq/L 04/17/2022 10:03 AM EDT [facility] K 4.1 3.5 - 5.5 mmol/L 04/17/2022 10:03 AM EDT [facility] CL 108 96 - 110 mmol/L 04/17/2022 10:03 AM EDT [facility] CARBON DIOXIDE (CO2) 28 21 - 32 mmol/L 04/17/2022 10:03 AM EDT [facility] ANION GAP 6 3 - 11 04/17/2022 10:03 AM EDT [facility] CALCIUM 9.3 8.5 - 10.5 mg/dL 04/17/2022 10:03 AM EDT [facility] 04/17/2022 8:24 AM EDT 04/17/2022 8:25 AM EDT Narrative [facility] - 04/17/2022 10:03 AM EDT Release to patient->Immediate Evangelista Kemp MD LAB [facility] * (ABNORMAL) CBC (AUTO DIFF PLATELET) (04/17/2022 8:24 AM EDT) WHITE BLOOD COUNT 7.3 4.8 - 10.8 x10-3/uL 04/17/2022 10:10 AM EDT [facility] RED BLOOD COUNT 4.7 4.5 - 5.5 x10-6/uL 04/17/2022 10:10 AM EDT [facility] Hemoglobin 14.5 13.5 - 17.5 g/dL 04/17/2022 10:10 AM EDT [facility] Hematocrit 44.3 42 - 54 % 04/17/2022 10:10 AM EDT [facility] MEAN CORPUSCULAR VOLUME 94.3 79 - 98 fL 04/17/2022 10:10 AM EDT [facility] MEAN CORPUSCULAR HEMOGLOBIN 30.9 27 - 32 pg 04/17/2022 10:10 AM EDT [facility] MEAN CORPUSCULAR HGB CONC 32.7 32 - 37 g/dL 04/17/2022 10:10 AM EDT [facility] RED CELL DISTRIBUTION WIDTH 13.2 11 - 15 % 04/17/2022 10:10 AM EDT [facility] PLT COUNT 154 130 - 400 x10-3/uL 04/17/2022 10:10 AM EDT [facility] MEAN PLATELET VOLUME 11.5(H) 7 - 11 fL 04/17/2022 10:10 AM EDT [facility] NRBC % AUTO 0.0 <1 % 04/17/2022 10:10 AM EDT [facility] NEUTROPHILS % 69.4 % 04/17/2022 10:10 AM EDT [facility] LYMPH % 20.6 % 04/17/2022 10:10 AM EDT [facility] MONO % 7.0 % 04/17/2022 10:10 AM EDT [facility] EOS % 2.2 % 04/17/2022 10:10 AM EDT [facility] BASO % 0.4 % 04/17/2022 10:10 AM EDT [facility] IMMATURE GRANULOCYTES % 0.4 % 04/17/2022 10:10 AM EDT [facility] NRBC # AUTO 0.00 <0.1 x10-3/uL 04/17/2022 10:10 AM EDT [facility] NEUT # 5.08 1.5 - 7.0 x10-3/uL 04/17/2022 10:10 AM EDT [facility] LYMPH # 1.51 1 - 5.0 x10-3/uL 04/17/2022 10:10 AM EDT [facility] MONO # 0.51 0.2 - 1.0 x10-3/uL 04/17/2022 10:10 AM EDT [facility] EOS # 0.16 0 - 0.5 x10-3/uL 04/17/2022 10:10 AM EDT [facility] BASO # 0.03 0 - 0.2 x10-3/uL 04/17/2022 10:10 AM EDT [facility] IMMATURE GRANULOCYTES # 0.03 0 - 0.03 x10-3/uL 04/17/2022 10:10 AM EDT [facility] 04/17/2022 8:24 AM EDT 04/17/2022 8:25 AM EDT Narrative [facility] - 04/17/2022 10:10 AM EDT Release to patient->Immediate Evangelista Kemp MD LAB [facility] documented in this encounter Visit Diagnoses Diagnosis Preoperative examination Preoperative examination, unspecified Screening for deficiency anemia Screening for other and unspecified deficiency anemia Preoperative examination Preoperative examination, unspecified Screening for deficiency anemia Screening for other and unspecified deficiency anemia documented in this encounter Care Teams Production Illustrator Relationship Specialty Start Date End Date Alize Dela Cruz MD [address] [place] [id number] PCP - General Internal Medicine 11/16/15 documented as of this encounter
--- OUTSIDE RECORDS SUMMARY | 2025-02-11 11:33 | XMS_ITS | Encounter Summary ---
Author Organization [facility] Address [address] [place] [address] Care Team Providers Care Metal Reed Tuner Name Role Phone Alize Dela Cruz MD Primary Care Provider [phone] Encounter Details Date Type Department Care Team Description 12/12/2021 8Th Grade Teacher Report Medical Records [address] [place] [address] Aiden Rivera MD Social History Tobacco Use [...] on filedocumented in this encounter Care Teams Metal Reed Tuner Relationship Specialty Start Date End Date Alize Dela Curz MD [address] [place] [address] PCP - General Internal Medicine 11/16/15 documented as of this encounter
--- OUTSIDE RECORDS SUMMARY | 2025-02-11 11:33 | XMS_ITS | Encounter Summary ---
Author Organization [facility] Address [address] [place] [address] Care Team Providers Care Management Instructor Name Role Phone Alize Dela Cruz MD Primary Care Provider [phone] Reason for Visit * Reason Onset Date Comments URI Symptoms 12/30/2023 Encounter Details Date Type Department Care Team Description 12/30/2023 Telephone Adult Medicine [facility] [address] [place] [address] [phone] Alize Dela Cruz MD [address] [place] [address] [phone] URI Symptoms Social History Tobacco Use Types Packs/Day Years [...] encounter Miscellaneous Notes * Telephone Encounter - Kirsty Burgess R.N. - 12/30/2023 9:40 AM EDT Pt has had cough for over a month Pt is concerned about covid 19 virus. Pt has not traveled and has not had any contacts who have traveled . Pt has not had contact with known or presumed covid 19 pt. Pt has not visited er or any urgent care and has not been tested No chest wall pain with deep breath and cough, feels SOB and sat is 90% ( has no COPD/ asthma or any respiratory condition ) , able to speak in short sentences and has audible wheezing, cough is productive for Sputum, denies fever , able to take PO with no difficulty, denies N/V/D, No abd pain, Advised home care following the Cough/ breathing problems Protocol. RN reinforced telephone consultation and advice. Reviewed with the patient the signs and symptoms to watch for that would require immediate attention. If symptoms change, worsen or increase in intensity, to call back immediately. * Telephone Encounter - Clary Rogel - 12/30/2023 8:43 AM EDT Symptoms patient is presenting: Bad cough that he's had for 1 month. O2 down to 90 this morning as well as yesterday. Given Museux and Disolan cough syrup. Cough sounds raspy and hoarse. For ALL patients calling to schedule any appointment (routine, sick visit, follow up, consult, etc.) in the outpatient setting please ask the following questions: ?? Do you have fever of higher than 101, sore throat with difficulty swallowing or severe shortnessof breath? YES If YES to any of these above symptoms, send a message to triage and do not book. Red dot. If no, an audio or video visit should be booked. ?? Have you had close contact with someone with Coronavirus in the last 14 days? NO ?? Have you traveled abroad? NO ?? Have you traveled recently to another state outside of [place], [place], [place], [place], [place], [place], [place]? NO o If yes, did you quarantine for 14 days or have a negative covid test? NO If yes to any of the above, patient is not to be scheduled in office until after 14 day quarantine or negative covid test. If pain or injury related was it due to an accident at work or from a motor vehicle accident? NO If yes, gather 3rd democrat insurance information Date of accident/Injury: How long has patient had these symptoms?: 1 month PCP: Alize Dela Cruz [place] / Plan[place] / Product Type: MEDICARE [id number] documented in this encounter Plan of Treatment Not on file documented as of this encounter Visit Diagnoses Not on filedocumented in this encounter Care Teams Management Instructor Relationship Specialty Start Date End Date Alize Dela Cruz MD [address] [place] [address] PCP - General Internal Medicine 11/16/15 documented as of this encounter
--- OUTSIDE RECORDS SUMMARY | 2025-02-11 11:33 | XMS_ITS | Encounter Summary ---
Author Organization [facility] Address [address] [place] [address] Care Team Providers Care Blast Setter Name Role Phone Alize Dela Cruz MD Primary Care Provider [phone] Encounter Details Date Type Department Care Team Description 10/08/2023 Assistant Manager Report Medical Records [address] [place] [address] Catia Montiel NP Social History Tobacco Use Types Packs/Day Years [...] on filedocumented in this encounter Care Teams Blast Setter Relationship Specialty Start Date End Date Alize Dela Cruz MD [address] [place] [address] PCP - General Internal Medicine 11/16/15 documented as of this encounter
--- OUTSIDE RECORDS SUMMARY | 2025-02-11 11:33 | XMS_ITS | Encounter Summary ---
Author Organization [facility] Address [address] [place] [address] Care Team Providers Care Electrical Intern Name Role Phone Alize Dela Cruz MD Primary Care Provider Encounter Details Date Type Department Care Team Description 05/04/2021 Podiatric Foot And Ankle Specialist Report Medical Records [address] [place] [address] Aiden Rivera MD Social History Tobacco Use [...] on filedocumented in this encounter Care Teams Electrical Intern Relationship Specialty Start Date End Date Alize Dela Cruz MD [address] [place] [address] PCP - General Internal Medicine 11/16/15 documented as of this encounter
--- OUTSIDE RECORDS SUMMARY | 2025-02-11 11:33 | XMS_ITS | Encounter Summary ---
Author Organization [facility] Address [address] [place] [address] Care Team Providers Care Capacity Planning Analyst Name Role Phone Alize Dela Cruz MD Primary Care Provider [phone] Encounter Details Date Type Department Care Team Description 12/02/2023 Chocolate Dipper Report Medical Records [address] [place] [address] Tristan Doty MD Social History Tobacco Use Types Packs/Day [...] on filedocumented in this encounter Care Teams Capacity Planning Analyst Relationship Specialty Start Date End Date Alize Dela Cruz MD [address] [place] [address] PCP - General Internal Medicine 11/16/15 documented as of this encounter
--- OUTSIDE RECORDS SUMMARY | 2025-02-11 11:33 | XMS_ITS | Encounter Summary ---
Author Organization [facility] Address [address] [place] [address] Care Team Providers Care Online Media Director Name Role Phone Name, Nixon CHAVES Primary Care Provider Alize Salazar MD Primary Care Provider [phone] Encounter Details Date Type Department Care Team Description 03/31/2014 Stars Specialist Report Medical Records [address] [place] [address] Aiden Rivera MD Social History Tobacco Use [...] on filedocumented in this encounter Care Teams Online Media Director Relationship Specialty Start Date End Date Name, MD Nixon PCP - General 03/21/11 11/15/15 Alize Dela Cruz MD [address] [place] [address] PCP - General Internal Medicine 11/16/15 documented as of this encounter
--- OUTSIDE RECORDS SUMMARY | 2025-02-11 11:33 | XMS_ITS | Encounter Summary ---
Author Organization [facility] Address [address] [place] [address] Care Team Providers Care Service Delivery Director Name Role Phone Alize Dela Cruz MD Primary Care Provider [phone] Encounter Details Date Type Department Care Team Description 08/22/2018 Receivables Specialist Report Medical Records [address] [place] [address] Aiden Rivera MD Social History Tobacco Use [...] on filedocumented in this encounter Care Teams Service Delivery Director Relationship Specialty Start Date End Date Alize Dela Cruz MD [address] [place] [address] [phone] PCP - General Internal Medicine 11/16/15 documented as of this encounter
--- OUTSIDE RECORDS SUMMARY | 2025-02-11 11:33 | XMS_ITS | Encounter Summary ---
Author Organization [facility] Address [address] [place] [address] Care Team Providers Care Table Assembler Name Role Phone Alize Dela Cruz MD Primary Care Provider [phone] Encounter Details Date Type Department Care Team Description 11/29/2022 Automatic Presser Report Medical Records [address] [place] [address] Tristan Doty MD Social History Tobacco Use [...] Recorded In the last 10 days, have elli u been in contact with someone who was confirmed or suspected to have Coronavirus/COVID-19? No / Unsure 11/19/2022 9:39 AM EST documented as of this encounter Plan of Treatment Not on file documented as of this encounter Visit Diagnoses Not on filedocumented in this encounter Care Teams Table Assembler Relationship Specialty Start Date End Date Alize Dela Cruz MD [address] [place] [address] PCP - General Internal Medicine 11/16/15 documented as of this encounter
--- OUTSIDE RECORDS SUMMARY | 2025-02-11 11:33 | XMS_ITS | Encounter Summary ---
Author Organization [facility] Address [address] [place] [address] Care Team Providers Care Vacuum Filter Operator Name Role Phone Alize Dela Cruz MD Primary Care Provider [phone] Encounter Details Date Type Department Care Team Description 08/22/2018 Caramel Candy Maker Report Medical Records [address] [place] [address] Alize Dela Cruz MD [address] [place] [address] Social History Tobacco Use Types Packs/Day Years [...] on filedocumented in this encounter Care Teams Vacuum Filter Operator Relationship Specialty Start Date End Date Alize Dela Cruz MD [address] [place] [address] PCP - General Internal Medicine 11/16/15 documented as of this encounter
--- OUTSIDE RECORDS SUMMARY | 2025-02-11 11:33 | XMS_ITS | Encounter Summary ---
Author Organization [facility] Address [address] [place] [address] Care Team Providers Care Salvage Clerk Name Role Phone Name, Nixon CHAVES Primary Care Provider Alize Salazar MD Primary Care Provider [phone] Encounter Details Date Type Department Care Team Description 09/09/2015 Explosives Handler Report Medical Records [address] [place] [address] Aiden Rivera MD Social History Tobacco Use [...] on filedocumented in this encounter Care Teams Salvage Clerk Relationship Specialty Start Date End Date Name, MD Nixon PCP - General 03/21/11 11/15/15 Alize Dela Cruz MD [address] [place] [address] PCP - General Internal Medicine 11/16/15 documented as of this encounter
--- OUTSIDE RECORDS SUMMARY | 2025-02-11 11:33 | XMS_ITS | Encounter Summary ---
Author Organization [facility] Address [address] [place] [address] Care Team Providers Care Show Dog Trainer Name Role Phone Alize Dela Cruz MD Primary Care Provider [phone] Reason for Visit * Reason Comments E-prescribe Rx Request Encounter Details Date Type Department Care Team Description 05/20/2021 Refill Adult Medicine [address] [phone] Alize Dela Cruz MD [address] [place] [address] [phone] E-prescribe Rx Request Social History Tobacco Use [...] Telephone Encounter - Lolita Tolentino M.A. - 05/22/2021 2:14 PM EDT Last office visit 01/30/21 Next office visit 06/01/21 Lab Results Component Value Date CHOL 116 01/23/2021 LDL 65 01/23/2021 HDL 39 01/23/2021 TRIG 63 01/23/2021 SGOT 25 01/23/2021 SGPT 25 01/23/2021 Lab Results Component Value Date NA 141 01/23/2021 K 4.2 01/23/2021 CO2 29 01/23/2021 CL 109 01/23/2021 BUN 24 01/23/2021 CREAT 0.97 01/23/2021 GLU 96 01/23/2021 CA 8.9 01/23/2021 GFR > 60 01/23/2021 * Telephone Encounter - Velma Leal - 05/22/2021 2:03 PM EDT Patient would like script to be: E-PRESCRIBED/FAXED TO PHARMACY WHEN WAS THE PATIENT'S LAST APPOINTMENT IN ADULT MEDICINE? 01/30/21 WHEN WAS THE LAST TIME THE PATIENT SAW THEIR PCP? Same as above Does patient have an upcoming appointment? Yes 06/01/21 (THE MEDICATION REQUESTED IS ON THE MED LIST ABOVE) All of the medications requested were on the CURRENT MEDS list Did you check the Pharmacy information above?: YES Patient wants: 90 -day supply Is this a mail order prescription request ? NO If the refill is from a FAXED refill request what is the RX # listed on the fax? N/A Patients current insurance carrier is: [place] / [place] / Product Type: MEDICARE [id number] documented in this encounter Plan of Treatment Not on file documented as of this encounter Visit Diagnoses Not on filedocumented in this encounter Care Teams Show Dog Trainer Relationship Specialty Start Date End Date Alize Dela Cruz MD [address] [place] [address] PCP - General Internal Medicine 11/16/15 documented as of this encounter
--- OUTSIDE RECORDS SUMMARY | 2025-02-11 11:34 | XMS_ITS | Encounter Summary ---
Author Organization [facility] Address [address] [place] [address] Care Team Providers Care Cafeteria Manager Name Role Phone Alize Dela Cruz MD Primary Care Provider [phone] Reason for Visit * Reason Onset Date Comments Faxed Order 10/03/2022 Order # [id number] Encounter Details Date Type Department Care Team Description 10/03/2022 Telephone Adult Medicine [address] [phone] Alize Dela Cruz MD [address] [place] [address] [phone] Faxed Order (Order # [id number]) Social History Tobacco Use Types Packs/Day Years [...] encounter Miscellaneous Notes * Telephone Encounter - Lizzy Zazueta - 10/03/2022 12:03 PM EST Faxed order received from [facility] order# [id number] please sign and fax back to [phone] documented in this encounter Plan of Treatment Not on file documented as of this encounter Visit Diagnoses Not on filedocumented in this encounter Care Teams Cafeteria Manager Relationship Specialty Start Date End Date Alize Dela Cruz MD [address] [place] [address] PCP - General Internal Medicine 11/16/15 documented as of this encounter
--- OUTSIDE RECORDS SUMMARY | 2025-02-11 11:34 | XMS_ITS | Encounter Summary ---
Author Organization [facility] Address [address] [place] [address] Care Team Providers Care Laborer Car Barn Name Role Phone Alize Dela Cruz MD Primary Care Provider [phone] Encounter Details Date Type Department Care Team Description 01/22/2024 Clam Shucker Report Medical Records [address] [place] [address] Monet Luu NP Social History Tobacco Use Types Packs/Day [...] on filedocumented in this encounter Care Teams Laborer Car Barn Relationship Specialty Start Date End Date Alize Dela Cruz MD [address] [place] [address] PCP - General Internal Medicine 11/16/15 documented as of this encounter
--- OUTSIDE RECORDS SUMMARY | 2025-02-11 11:34 | XMS_ITS | Encounter Summary ---
Author Organization [facility] Address [address] [place] [address] Care Team Providers Care Computer Systems Designer Name Role Phone Alize Dela Cruz MD Primary Care Provider [phone] Encounter Details Date Type Department Care Team Description 08/24/2020 Restaurant Kitchen And Service Manager Report Medical Records [address] [place] [address] Aiden Rivera MD Social History Tobacco Use [...] on filedocumented in this encounter Care Teams Computer Systems Designer Relationship Specialty Start Date End Date Alize Dela Cruz MD [address] [place] [address] [phone] PCP - General Internal Medicine 11/16/15 documented as of this encounter
--- OUTSIDE RECORDS SUMMARY | 2025-02-11 11:34 | XMS_ITS | Clinical Summary ---
Author Organization [facility] Address [address] [place] [address] Care Team Providers Care Surgical Coder Name Role Phone Alize Dela Cruz MD Primary Care Provider Medications Medication Sig Dispensed Refills Start Date End Date Status Rasagiline Mesylate 1 MG Tab Take 1 mg by mouth daily. 0 Active carbidopa-levodopa (SINEMET) 10-100 MG per tablet Take 1 Tablet by mouth 2 times daily. 0 01/30/2022 Active metoprolol (LOPRESSOR) 50 MG tablet TAKE 1 TABLET TWICE A DAY 180 Tablet 1 06/22/2022 Active Carboxymethylcellulos e Sodium (ARTIFICIAL TEARS OP) apply 2 Drops to the eye. 0 07/31/2022 Active ASPIRIN LOW DOSE OR Take 82 mg by mouth daily. 0 Active losartan-hydrochlorot hiazide (HYZAAR) 50-12.5 MG per tablet Take 1 Tablet by mouth daily. 0 Active atorvastatin (LIPITOR) 40 MG tablet TAKE 1 TABLET BY MOUTH EVERY DAY 90 Tablet 0 08/18/2024 Active Active Problems Problem Noted Date Basal cell carcinoma (BCC) of face 05/11 COVID-19 08/23/2022 Overview: shortness of breath cough fever, hospitalization for most likely CHF with left pleural effusion see discharge summary [facility] Jul, 2022 DNR (do not resuscitate) 06/01/2021 CAD (coronary artery disease) 08/18/2018 Overview: Single vessel CABG after discovery by Cath for preop for aortic valve replacement Parkinsonism 09/28/2013 Overview: Follows with neurology, Dr. Chaudhry Aortic valve replaced 10/01/2011 Overview: Single vessel CABG performed after preoperative Cath Follows with Dr. Byrd Aortic stenosis 03/15/2010 Overview: Moderate by echo 12/2009. S/p aortic valve replacement with a bovine valve, 04/30 Diverticulosis of colon (without mention of hemorrhage) 10/24/2006 Overview: Incidental finding at colonoscopy 10/24/2006. Family history of malignant neoplasm of gastrointestinal tract 10/24/2006 Overview: Sister with diagnosis of colorectal cancer age 68, brother with diagnosis of colorectal cancer age 70. First-degree relatives x 2 risk category. 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 Large sessile rectal lesion, adenomatous [...] needed for 5 years. Essential hypertension, benign 5 Pure hypercholesterolemia 07/03/2005 Resolved Problems Problem Noted Date Resolved Date Tremors of nervous system 03/26/20132012 Overview: Suspect Parkinson's disease Immunizations Name Administration Dates Next Due COVID-19 (Pfizer) 12/10/2020,11/19/2020 Pneumoccoccal(Adult) Polysaccharide PPSV23 09/26,05/10/2011 TD (STATE SUPPLIED FOR ADULTS AND CHILDREN) 09/21,05/01/2005 TETANUS/DIPTHERIA (ADULT) 05/01/2005 Tdap 08/02/2014 Family History Medical History Relation Name Comments Cancer of the Colon Brother 2 Cataract Brother 2 CA Lung Brother 3 Macular Degeneration Daughter 1 Cancer of the Colon Sister 2 Cataract Sister 2 Blindness Negative Hx Glaucoma Negative Hx Strabismus Negative Hx Relation Name Status Comments Brother 1 Alive lung cancer, mu ltiple myeloma Brother 2 Brother 3 Daughter 1 Alive Daughter 2 Alive Daughter 3 Alive Daughter 4 Alive Father stomach cancer Mother heart problems Sister 1 colon cancer Sister 2 Social History Tobacco Use Types Packs/Day Years Used Date Smoking Tobacco: Former Cigarettes 0.5 20 Q uit: [birth year]21[birth year]1969 Smokeless Tobacco: Never Tobacco Cessation:Counseling Given: Not Answered Alcohol Use Standard Drinks/Week Comments No 0 (1 standard drink = 0.6 oz pur e alcohol) Sex Assigned at Date Recorded Not on file Job Start Date Occupation Industry Not on file Not on file Not on file Last Filed Vital Signs Vital Sign Reading Time Taken Comments Blood Pressure 133/77 05/11/2024 2:45 PM EDT Pulse 80 05/11/2024 2:45 PM EDT Temperature 36.7 ??C (98 ??F) 05/11/2024 2:45 PM EDT Respiratory Rate 16 05/11/2024 2:45 PM EDT Oxygen Saturation 98% 08/07/2023 11: 13 AM EDT Inhaled Oxygen Concentration - - Weight 83.8 kg (184 lb 12.8 oz) 05/11/2024 2:45 PM EDT Height 182.9 cm (6') 05/11/2024 2:45 PM EDT Body Mass Index 25.06 05/11/2024 2:45 PM EDT Plan of Treatment Health Maintenance Due Date Last Done Comments SHINGLES VACCINE (1 of 2) 1991 COLON CANCER SCREENING 04/26/2020 5, 01/26/2010, 10/24/2006, Additional history exists Covid-19 Vaccine ( season) 2024 12/10/2020, 11/19/2020 BMI CHECK/ADVISE 10/21/2024 05/11/2024, , 02/04/2023, Additional history exists DIABETES/HEART DISEASE: ANNUAL CHOLESTEROL (LDL) 01/02/2025 01/03/2024, 11/19/2022, 10/12/2021, Additional history exists DEPRESSION SCREEN 05/11/2025 05/11/2024, , 01/30/2022, Additional history exists FALL RISK ASSESSMENT 05/11/2025 05/11/2024, 02/04/2023, 11/12/2022, Additional history exists INFLUENZA (Season Ended) 2025 018 (Refused), 08/09/2017 (Refused) DTAP/TDAP/TD (3 - Td or Tdap) 10/09/2028 10/09/2018, 08/02/2014, 05/01/2005 PNEUMOCOCCAL VACCINE Addressed 08/09/2017 (Refused), 09/26/2012, 05/10/2011 Overridden with the intention of not completing the topic Advance Directives For more information, please contact: [phone] Documents on File Type Date Recorded Patient Dredge Pipe Operator Expl anation Health Care Proxy 08/20/2016 4:17 PM PROX Y Latest Code Status on File Code Status Date Activated Date Inactivated Comments DNR 02/16/2022 2:56 PM MOLST form copied and sent to scanning Code Status History Code Status Date Activated Date Inactivated Comments DNR 02/16/2022 2:56 PM 02/16/2022 2:56 PM Care Teams Surgical Coder Relationship Specialty Start Date End Date Alize Dela Cruz MD [address] [place] [address] PCP - General Internal Medicine 11/16/15
--- OUTSIDE RECORDS SUMMARY | 2025-02-11 11:34 | XMS_ITS | Encounter Summary ---
Author Organization [facility] Address [address] [place] [address] Care Team Providers Care Tariff Clerk Name Role Phone Alize Dela Cruz MD Primary Care Provider Encounter Details Date Type Department Care Team Description 07/31/2022 Travel Journalist Report Medical Records [address] [place] [address] Mayo Salazar MD Social History Tobacco Use Types Packs/Day [...] on filedocumented in this encounter Care Teams Tariff Clerk Relationship Specialty Start Date End Date Alize Dela Cruz MD [address] [place] [address] PCP - General Internal Medicine 11/16/15 documented as of this encounter
--- OUTSIDE RECORDS SUMMARY | 2025-02-11 11:34 | XMS_ITS | Encounter Summary ---
Author Organization [facility] Address [address] [place] [address] Care Team Providers Care Desk Assistant Name Role Phone Alize Dela Cruz MD Primary Care Provider [phone] Encounter Details Date Type Department Care Team (Late st Contact Info) Description 10/29/2023 Scanned Document [address] [place] [phone] Cardiology, Scan Social History Tobacco Use [...] at Not on file Legal Sex Male 10:21 AM EDT Gender Identity Not on file Sexual Orientation Not on file documented as of this encounter Plan of Treatment Not on file documented as of this encounter Visit Diagnoses Not on filedocumented in this encounter Care Teams Desk Assistant Relationship Specialty Start Date End Date Alize Dela Cruz MD PCP - General 08/09/22 documented as of this encounter
--- OUTSIDE RECORDS SUMMARY | 2025-02-11 11:34 | XMS_ITS | Encounter Summary ---
Author Organization [facility] Address [address] [place] [address] Care Team Providers Care Search Engine Optimization Strategist Name Role Phone Alize Dela Cruz MD Primary Care Provider [phone] Encounter Details Date Type Department Care Team Description 01/12/2016 Interlocking Machine Operator Report Medical Records [address] [place] [address] Tristan Doty MD Social History Tobacco Use [...] on filedocumented in this encounter Care Teams Search Engine Optimization Strategist Relationship Specialty Start Date End Date Alize Dela Cruz MD [address] [place] [address] PCP - General Internal Medicine 11/16/15 documented as of this encounter
--- OUTSIDE RECORDS SUMMARY | 2025-02-11 11:34 | XMS_ITS | Encounter Summary ---
Author Organization [facility] Address [address] [place] [address] Care Team Providers Care Middle School Director Name Role Phone Name, Nixon CHAVES Primary Care Provider Evangelista Barajas MD Primary Care Provider Alize Cardenas MD Primary Care Provider [phone] Encounter Details Date Type Department Care Team Description 05/08/2005 Orders Only Medical [address] [place] [address] Robert Gibbons PA-C UNSPECIFIED ESSENTIAL HYPERTENSION; ROUTINE GENERAL MEDICAL EXAMINATION AT A HEALTH CARE FACILITY Social History Tobacco Use Types Packs/Day Years Used Date Smoking Tobacco: Never Assessed Sex Assigned at Date Recorded Not on file Job Start Date Occupation Industry Not on file Not on file Not on file documented as of this encounter Plan of Treatment Scheduled Orders Name Type Priority Associated Diagnoses Orde r Schedule VENIPUNCTURE Lab Routine Unspecified Essential Hypertension Ordered: 05/08/2005 documented as of this encounter Procedures Procedure Name Priority Date/Time Associated Diagnosis Comments PROSTATE SPEC. AG, SCREEN Routine 05/08/2005 8:10 AM EDT Unspecified Essential Hypertension CHG URNLS DIP STICK/TABLET REAGENT AUTO MICROSCOPY Routine 05/08/2005 8:10 AM EDT Routine General Medical Examination At A Health Care Facility CHG BLOOD COUNT COMPLETE AUTO&AUTO DIFRNTL WBC Routine 05/08/2005 8:10 AM EDT Routine General Medical Examination At A Health Care Facility CHG LIPID PANEL Routine 05/08/2005 8:10 AM EDT Routine General Medical Examination At A Health Care Facility [facility] COMPREHENSIVE METABOLIC PANEL Routine 05/08/2005 8:10 AM EDT Routine General Medical Examination At A Health Care Facility documented in this encounter Results * URINALYSIS, COMPLETE (05/08/2005 8:10 AM EDT) GLUCOSE, URINE (UA) NEGATIVE NEGATIVE mg/dL [facility] BILIRUBIN URINE NEGATIVE NEGATIVE [facility] KETONE, URINE NEGATIVE NEGATIVE mg/dL [facility] SPECIFIC GRAVITY, URINE 1.029 1.003 - 1.030 [facility] BLOOD, URINE NEGATIVE NEGATIVE [facility] PH, URINE 5.5 5.0 - 8.0 [facility] PROTEIN, URINE NEGATIVE <= TRACE mg/dl [facility] UROBILINOGEN, URINE 1.0 0.2 - 1.0 E.U./dL [facility] NITRITE,URINE NEGATIVE NEGATIVE [facility] LEUKOCYTE ESTERASE, URINE NEGATIVE NEGATIVE [facility] RBC-Urine 1 0 - 4 /HPF [facility] WBC-Urine 1 0 - 4 /hpf [facility] BACTERIA, URINE MODERATE [facility] 05/08/2005 8:10 AM EDT 05/08/2005 8:13 AM EDT H Jasen Gibbons PA-C LAB [facility] [employer] * PROSTATE SPEC. AG, SCREEN (05/08/2005 8:10 AM EDT) PROSTATIC SPECIFIC ANTIGEN SCR 1.2 0.0 - 4.0 ng/mL [facility] [employer] [facility] 05/08/2005 8:10 AM EDT 05/08/2005 8:13 AM EDT H Jasen Gibbons PA-C LAB [facility] [employer] * CBC (AUTO DIFF & PLATELET) (05/08/2005 8:10 AM EDT) WHITE BLOOD COUNT 7.4 4.8 - 10.8 x10-3 [facility] RED BLOOD COUNT 5.5 4.5 - 5.5 x10-6 [facility] Hemoglobin 16.3 13.0 - 17.0 g/dL [facility] Hematocrit 47.7 40 - 51 % [facility] MEAN CORPUSCULAR VOLUME 87.4 79 - 98 fl [facility] MEAN CORPUSCULAR HEMOGLOBIN 29.9 27 - 32 pg [facility] MEAN CORPUSCULAR HGB CONC 34.2 32 - 37 g/dl [facility] RED CELL DISTRIBUTION WIDTH 12.9 11 - 15 % [facility] PLT COUNT 209 130 - 400 x10-3 [facility] NEUTROPHILS % 64 41 - 85 % [facility] LYMPH % 25 15 - 48 % [facility] 05/08/2005 8:10 AM EDT 05/08/2005 8:13 AM EDT H Jasen Gibbons PA-C LAB Performing Organization Address [facility]/ZIP Co de Phone Number [facility] * (ABNORMAL) LIPID PROFILE (05/08/2005 8:10 AM EDT) Cholesterol 223(H) 0 - 200 mg/dL [facility] TRIGLYCERIDES 169(H) 0 - 150 mg/dL [facility] HDL CHOLESTEROL 40 >40 mg/dL [facility] LDL CALCULATED 150(H) 0 - 100 mg/dL [facility] TC-HDLC RATIO 5.6(H) 0 - 4.4 mg/dL [facility] 05/08/2005 8:10 AM EDT 05/08/2005 8:13 AM EDT H Jasen Gibbons [facility]-C [facility] * (ABNORMAL) COMPREHENSIVE METABOLIC PANEL (05/08/2005 8:10 AM EDT) GLUCOSE 101 70 - 110 mg/dL [facility] Blood Urea Nitrogen 19 5 - 25 mg/dL [facility] creatinine 0.9 0.7 - 1.5 mg/dL [facility] BUN/CREATININE RATIO 21.1(H) 6.0 - 20.0 G/dL [facility] Sodium 139 133 - 145 mEq/L [facility] Potassium 4.1 3.5 - 5.2 mEq/L [facility] Chloride 105 96 - 108 mEq/L [facility] CARBON DIOXIDE (CO2) 27.8 21.0 - 32.0 mEq/L [facility] CALCIUM 9.5 8.5 - 10.5 mg/dL [facility] TOTAL PROTEIN (TP) 7.4 6.0 - 8.0 G/dL [facility] Albumin 4.5 3.2 - 5.6 G/dL [facility] GLOBULIN 2.9 1.9 - 4.4 G/dL [facility] ALBUMIN/GLOBULI N RATIO 1.6 1.1 - 2.3 [facility] BILIRUBIN TOTAL 1.1 0.0 - 1.4 mg/dL [facility] AST (SGOT) 26 10 - 42 U/L [facility] ALT (SGPT) 30 10 - 60 U/L [facility] Alk Phos 78 42 - 121 U/L [facility] 05/08/2005 8:10 AM EDT 05/08/2005 8:13 AM EDT H Jasen Gibbons PA-C LAB [facility] documented in this encounter Visit Diagnoses Diagnosis Unspecified essential hypertension Routine general medical examination at a health care facility documented in this encounter Care Teams Middle School Director Relationship Specialty Start Date End Date Name, MD iNxon PCP - General 03/21/11 11/15/15 Evangelista Kemp MD PCP - General 08/09/00 03/20/11 Alize Dela Cruz MD [address] [address] PCP - General Internal Medicine 11/16/15 documented as of this encounter
--- OUTSIDE RECORDS SUMMARY | 2025-02-11 11:34 | XMS_ITS | Clinical Summary ---
Author Organization [facility] Address [address] [place] [address] Care Team Providers Care Computer Graphic Designer Name Role Phone Alize Dela Cruz MD Primary Care Provider [phone] Allergies No known active allergies Medications atorvastatin (LIPITOR) 40 MG tablet Take 1 tablet (40 mg total) by mouth daily. 2 Active carbidopa-levodopa (SINEMET) 10-100 MG per tablet Take 1 tablet by mouth 2 (two) times a day. 2 Active rasagiline (AZILECT) 1 MG tablet Take 1 tablet (1 mg total) by mouth. Active torsemide (DEMADEX) 20 MG tabletIndications: Severe aortic insufficiency Take 1 tablet (20 mg total) by mouth 2 (two) times a day in the morning and the early evening.. 60 tablet 2 Active metoPROLOL SUCCINATE (TOPROL-XL) 25 MG 24 hr tablet Take 0.5 tablets (12.5 mg total) by mouth 2 (two) times a day. Active apixaban (ELIQUIS) 2.5 MG tabletIndications: S/P TAVR (transcatheter aortic valve replacement) Take 1 tablet (2.5 mg total) by mouth every 12 (twelve) hours around the clock. 60 tablet 2 Active losartan (COZAAR) 25 MG tabletIndications: Benign essential hypertension Take 0.5 tablets (12.5 mg total) by mouth daily. 15 tablet 2 Active Active Problems Problem Noted Date Diagnosed [...] essential hypertension 07/03/2005 Pure hypercholesterolemia 07/03/2005 Immunizations Immunization Administration Dates Next Due DT 05/01/2005 Pneumococcal [...] this topic Medical Devices Implanted Type Area Eligibility Clerk Device Identifier Shelf Expiration Date Model / Serial / Lot Medtronic Evolut Fx Transcatheter Aortic Valve Implanted:Qty: 1 on 08/30/2022 by Yvon Han MD at [facility] Valve N/A: Aorta Medtronic [id number] 06/10/2024 EVOLUTFX- 26 / [id number] / Description:valve prepared b y Kandice Davis Medtronic Rep SN, valve size, and freeze watch verified by Kandice [employer] and Amada Rogel RN Insurance MEDICARE PART A & B [facility] SUPPLEMENT ONLY Advance Directives * Full Code (Latest Code Status on File) Date Activated Date Inactivated Comments 08/31/2022 1:13 AM * Full Code Date Activated Date Inactivated Comments 08/30/2022 1:11 PM 08/31/2022 1:13 AM * Full Code Date Activated Date Inactivated Comments 08/08/2022 9:36 PM 08/30/2022 11:26 AM Care Teams Computer Graphic Designer Relationship Specialty Start Date End Date Alize Dela Cruz MD [facility] - General 08/09/22
--- OUTSIDE RECORDS SUMMARY | 2025-02-11 11:34 | XMS_ITS | Encounter Summary ---
Author Organization [facility] Address [address] [place] [address] Care Team Providers Care Merchandising Execution Manager Name Role Phone Alize Dela Cruz MD Primary Care Provider [phone] Encounter Details Date Type Department Care Team Description 09/25/2022 Floor Molder Report Medical Records [address] [place] [address] Abstract, Provider Social History Tobacco Use Types Packs/Day Years [...] on filedocumented in this encounter Care Teams Merchandising Execution Manager Relationship Specialty Start Date End Date Alize Dela Cruz MD [address] [place] [address] PCP - General Internal Medicine 11/16/15 documented as of this encounter
--- OUTSIDE RECORDS SUMMARY | 2025-02-11 11:34 | XMS_ITS | Encounter Summary ---
Author Organization [facility] Address [address] [place] [address] Care Team Providers Care Medical Office Professional Instructor Name Role Phone Name, Nixon CHAVES Primary Care Provider Alize Salazar MD Primary Care Provider [phone] Encounter Details Date Type Department Care Team Description 05/14/2011 Pump Room Operator Report Medical Records [address] [place] [address] Lulu Irving Social History Tobacco Use Types Packs/Day Years [...] on filedocumented in this encounter Care Teams Medical Office Professional Instructor Relationship Specialty Start Date End Date Name, MD Nixon PCP - General 03/21/11 11/15/15 Alize Dela Cruz MD [address] [place] [address] [phone] PCP - General Internal Medicine 11/16/15 documented as of this encounter
--- OUTSIDE RECORDS SUMMARY | 2025-02-11 11:34 | XMS_ITS | Encounter Summary ---
Author Organization [facility] Address [address] [place] [address] Care Team Providers Care Remote Sensing Engineer Name Role Phone Alize Dela Cruz MD Primary Care Provider [phone] Reason for Referral * EXTERNAL (Routine) - Authorized/Booked Specialty Diagnoses / Procedures Referred By Nathan lowe Referred To Contact Neurology Procedures REFERRAL TO NEUROLOGY Alize Dela Cruz MD [address] [place] [address] Caitlin Brar MD [address] [place] [address] [place] [address] Referral ID Status Reason Start Date Expiration Date V isits Requested Visits Authorized [id number] Authorized/B ooked 06/07/2022 09/20/2022 1 1 Reason for Visit * Reason Onset Date Comments REFERRAL 06/07/2022 Encounter Details Date Type Department Care Team Description 06/07/2022 Telephone Adult Medicine [address] [phone] Alize Dela Cruz MD [address] [place] [address] REFERRAL Social History Tobacco Use Types Packs/Day Years [...] encounter Miscellaneous Notes * Telephone Encounter - Ira Tai - 06/18/2022 3:21 PM EDT Victoria calling from [facility] insurance plan re: status of this referral - pt also contacted Dr Brar's office today and pt is unable to schedule appt until this referral has been done and faxed to their office - any questions concerning this Victoria and pt requests call back. * Telephone Encounter - Shellie Dunn - 06/11/2022 10:02 AM EDT Patient 's called to inquire about the status of the referral Curent specialist is retiring atend of month * Telephone Encounter - Cecilia Encinas.P.NAravind - 06/07/2022 2:49 PM EDT Pended referral to Dr Dela Cruz for Dr Brar, Dx Parkinsons * Telephone Encounter - Ayaka Mendez - 06/07/2022 2:29 PM EDT Patient is requesting a referral to [address] Óscar Valle. The patients current neuorologist is retiring and would like to be seen by Dr Brar documented in this encounter Plan of Treatment Not on file documented as of this encounter Visit Diagnoses Not on filedocumented in this encounter Care Teams Remote Sensing Engineer Relationship Specialty Start Date End Date Alize Dela Cruz MD [address] [place] [address] PCP - General Internal Medicine 11/16/15 documented as of this encounter
--- OUTSIDE RECORDS SUMMARY | 2025-02-11 11:34 | XMS_ITS | Encounter Summary ---
Author Organization [facility] Address [address] [place] [address] Care Team Providers Care Phlebotomist Prn Name Role Phone Name, Nixon CHAVES Primary Care Provider Alize Salazar MD Primary Care Provider [phone] Encounter Details Date Type Department Care Team Description 11/27/2011 Eye Assistant Printer Floor Covering Report Medical Records [address] [place] [address] Sarah Shearer MD Social History Tobacco Use Types Packs/Day [...] on filedocumented in this encounter Care Teams Phlebotomist Prn Relationship Specialty Start Date End Date Name, MD Nixon PCP - General 03/21/11 11/15/15 Alize Dela Cruz MD [address] [place] [address] PCP - General Internal Medicine 11/16/15 documented as of this encounter
--- OUTSIDE RECORDS SUMMARY | 2025-02-11 11:34 | XMS_ITS | Encounter Summary ---
Author Organization [facility] Address [address] [place] [address] Care Team Providers Care Occupational Therapy Aide Name Role Phone Name, Nixon CHAVES Primary Care Provider Alize Salazar MD Primary Care Provider [phone] Encounter Details Date Type Department Care Team Description 12/17/2012 Overlocker Report Medical Records [address] [place] [address] Shawn Galan MD Social History Tobacco Use Types Packs/Day [...] on filedocumented in this encounter Care Teams Occupational Therapy Aide Relationship Specialty Start Date End Date Name, MD Nixon PCP - General 03/21/11 11/15/15 Alize Dela Cruz MD [address] [place] [address] PCP - General Internal Medicine 11/16/15 documented as of this encounter
--- OUTSIDE RECORDS SUMMARY | 2025-02-11 11:34 | XMS_ITS | Encounter Summary ---
Author Organization [facility] Address [address] [place] [address] Care Team Providers Care Yarding Supervisor Name Role Phone Alize Dela Cruz MD Primary Care Provider [phone] Encounter Details Date Type Department Care Team Description 02/03/2016 Release of Information Medical Records [address] [place] [address] Abstract, Provider Social History Tobacco Use Types [...] on filedocumented in this encounter Care Teams Yarding Supervisor Relationship Specialty Start Date End Date Alize Dela Cruz MD [address] [place] [address] PCP - General Internal Medicine 11/16/15 documented as of this encounter
--- OUTSIDE RECORDS SUMMARY | 2025-02-11 11:34 | XMS_ITS | Encounter Summary ---
Author Organization [facility] Address [address] [place] [address] Care Team Providers Care Ruby On Rails Developer Name Role Phone Alize Dela Cruz MD Primary Care Provider [phone] Encounter Details Date Type Department Care Team Description 02/11/2019 Hospital Medical Records [address] [place] [address] Beckie Jack MD Social History Tobacco Use Types Packs/Day [...] on filedocumented in this encounter Care Teams Ruby On Rails Developer Relationship Specialty Start Date End Date Alize Dela Cruz MD [address] [place] [address] PCP - General Internal Medicine 11/16/15 documented as of this encounter
--- OUTSIDE RECORDS SUMMARY | 2025-02-11 11:34 | XMS_ITS | Encounter Summary ---
Author Organization [facility] Address [address] [place] [address] Care Team Providers Care Catering Barista Name Role Phone Name, Nixon CHAVES Primary Care Provider Evangelista Barajas MD Primary Care Provider Alize Cardenas MD Primary Care Provider [phone] Encounter Details Date Type Department Care Team Description 02/27/2011 Eye Printer Technician Report Medical Records [address] [place] [address] Sarah hSearer MD Social History Tobacco Use Types Packs/Day [...] on filedocumented in this encounter Care Teams Catering Barista Relationship Specialty Start Date End Date Name, MD Nixon PCP - General 03/21/11 11/15/15 Evangelista Kemp MD PCP - General 08/09/00 03/20/11 Alize Dela Cruz MD [address] [place] [address] PCP - General Internal Medicine 11/16/15 documented as of this encounter
--- OUTSIDE RECORDS SUMMARY | 2025-02-11 11:34 | XMS_ITS | Encounter Summary ---
Author Organization [facility] Address [address] [place] [address] Care Team Providers Care Director Revenue Name Role Phone Alize Dela Cruz MD Primary Care Provider [phone] Encounter Details Date Type Department Care Team Description 08/14/2022 Hospital Medical Records [address] [place] [address] Abstract, Provider Social History Tobacco Use Types [...] on filedocumented in this encounter Care Teams Director Revenue Relationship Specialty Start Date End Date Alize Dela Cruz MD [address] [place] [address] PCP - General Internal Medicine 11/16/15 documented as of this encounter
--- OUTSIDE RECORDS SUMMARY | 2025-02-11 11:34 | XMS_ITS | Encounter Summary ---
Author Organization [facility] Address [address] [place] [address] Care Team Providers Care Industrial Gas Production Operator Name Role Phone Name, Nixon CHAVES Primary Care Provider Alize Salazar MD Primary Care Provider [phone] Encounter Details Date Type Department Care Team Description 05/29/2011 Breaker Tender Report Medical Records [address] [place] [address] Lulu Irving Social History Tobacco Use Types [...] on filedocumented in this encounter Care Teams Industrial Gas Production Operator Relationship Specialty Start Date End Date Name, MD Nixon PCP - General 03/21/11 11/15/15 Alize Dela Cruz MD [address] [place] [address] PCP - General Internal Medicine 11/16/15 documented as of this encounter
--- OUTSIDE RECORDS SUMMARY | 2025-02-11 11:34 | XMS_ITS | Encounter Summary ---
Author Organization [facility] Address [address] [place] [address] Care Team Providers Care Quill Layer Name Role Phone Alize Chavis MD Primary Care Provider [phone] Reason for Visit * Reason Onset Date Comments hospital follow up 02/12/2019 Encounter Details Date Type Department Care Team Description 02/12/2019 Telephone Adult Medicine [address] [phone] Alize Chavis MD [address] [place] [address] [phone] hospital follow up Social History Tobacco Use Types Packs/Day Years [...] Telephone Encounter - Kirsty Burgess R.N. - 02/12/2019 1:11 PM EDT Pt to see dr chavis 02/19 at 10:30 * Telephone Encounter - Aurelia Burgos - 02/12/2019 12:18 PM EDT Hospital follow up appointment needed Hospital patient was treated at: [facility] Was this only an ER visit or was the patient admitted to the hospital? Admitted to hospital Date of visit if ER visit only: 02/08/19 If patient was admitted what was the date of discharge? 02/12/19 Reason/diagnosis for visit or stay: fever and couldn't stand up When was the patient told to follow up? melany Was visit or stay related to an injury? NO If yes, what was the date of injury (DOI)? N/A If yes, was the injury due to N/A documented in this encounter Plan of Treatment Not on file documented as of this encounter Visit Diagnoses Not on filedocumented in this encounter Care Teams Quill Layer Relationship Specialty Start Date End Date Alize Chavis MD [address] [place] [address] [phone] PCP - General Internal Medicine 11/16/15 documented as of this encounter
--- OUTSIDE RECORDS SUMMARY | 2025-02-11 11:34 | XMS_ITS | Encounter Summary ---
Author Organization [facility] Address [address] [place] [address] Care Team Providers Care Contact Center Director Name Role Phone Name, Nixon CHAVES Primary Care Provider Alize Salazar MD Primary Care Provider [phone] Encounter Details Date Type Department Care Team Description 05/08/2011 Display Artist Report Medical Records [address] [place] [address] Shawn Galan MD Social History Tobacco Use [...] on filedocumented in this encounter Care Teams Contact Center Director Relationship Specialty Start Date End Date Name, MD Nixon PCP - General 03/21/11 11/15/15 Alize Dela Cruz MD [address] [place] [address] PCP - General Internal Medicine 11/16/15 documented as of this encounter
--- OUTSIDE RECORDS SUMMARY | 2025-02-11 11:34 | XMS_ITS | Encounter Summary ---
Author Organization [facility] Address [address] [place] [address] Care Team Providers Care Manager Oracle Name Role Phone Alize Dela Cruz MD Primary Care Provider [phone] Encounter Details Date Type Department Care Team Description 07/30/2022 Hospital Medical Records [address] [place] [address] Wes Lemus MD [address] [place] [address] [id number] Social History Tobacco Use Types Packs/Day Years [...] filedocumented in this encounter Care Teams Manager Oracle Relationship Specialty Start Date End Date Alize Dela Cruz MD [address] [place] [address] PCP - General Internal Medicine 11/16/15 documented as of this encounter
--- OUTSIDE RECORDS SUMMARY | 2025-02-11 11:34 | XMS_ITS | Encounter Summary ---
Author Organization [facility] Address [address] [place] [address] Care Team Providers Care Kettle Loader Name Role Phone Alize Dela Cruz MD Primary Care Provider [phone] Encounter Details Date Type Department Care Team Description 04/03/2016 Operations Architect Report Medical Records [address] [place] [address] Aiden Rivera MD Social History Tobacco Use [...] on filedocumented in this encounter Care Teams Kettle Loader Relationship Specialty Start Date End Date Alize Dela Cruz MD [address] [place] [address] [phone] PCP - General Internal Medicine 11/16/15 documented as of this encounter
--- OUTSIDE RECORDS SUMMARY | 2025-02-11 11:34 | XMS_ITS | Encounter Summary ---
Author Organization [facility] Address [address] [place] [address] Care Team Providers Care Circular Sawyer Stone Name Role Phone Alize Dela Cruz MD Primary Care Provider [phone] Encounter Details Date Type Department Care Team Description 01/23/2024 Sr. Payroll Processor Report Medical Records [address] [place] [address] Sivakumar Yoder MD Social History Tobacco Use Types Packs/Day [...] on filedocumented in this encounter Care Teams Circular Sawyer Stone Relationship Specialty Start Date End Date Alize Dela Cruz MD [address] [place] [address] PCP - General Internal Medicine 11/16/15 documented as of this encounter
--- OUTSIDE RECORDS SUMMARY | 2025-02-11 11:34 | XMS_ITS | Encounter Summary ---
Author Organization [facility] Address [address] [place] [address] Care Team Providers Care Medical Parasitologist Name Role Phone Delicia, Nixon CHAVES Primary Care Provider Alize Salazar MD Primary Care Provider [phone] Reason for Referral * (Routine) - Authorized/Booked Specialty Diagnoses / Procedures Referred By Contac t Referred To Contact Cardiology Procedures REFERRAL TO CARDIOLOGY Nixon Nesbitt MD [address] [place] [address] External Cardiology Referral ID Status Reason Start Date Expiration Date V isits Requested Visits Authorized SEE REVIEW 11/10/12 Authorized/ Booked 11/06/2012 02/08/2013 1 1 Reason for Visit * Reason Onset Date Comments Section Beamer Feedback 11/06/2012 Dr Doty Encounter Details Date Type Department Care Team Description 11/06/2012 Telephone Adult [address] [id number] Nixon Nesbitt MD Section Beamer Feedback (Dr Doty) Social History Tobacco Use Types Packs/Day Years [...] encounter Miscellaneous Notes * Telephone Encounter - Madyson Quiroz - 11/06/2012 11:20 AM EST Please review this patients new referral request. The referral has been pended. Please complete thefollowing: If approved> sign order If denied>please give instructions and route to your practice nursing pool. Practice nurse should inform referrals and the patient if denied. * Telephone Encounter - Shellie Dunn - 11/06/2012 10:20 AM EST Please verify with the patient now that this is the current/active insurance: Payor[place] Plan[place] Product Type: MEDICARE [id number] Effective 07/21/09: [employer] will not retro referral requests over 90 days. If request is for this please instruct patient to call the 800# on their insurance card to appeal. Do not submit a request. Referrals cannot be processed if the insurance is not accurate. If the insurance listed above in red is NO BILLING INFORMATION FOUND FOR THIS ENCOUTNER The patients correct insurance must be obtained and registered in [facility] or their referral can not be processed. Who is calling to request this referral? If the caller is not the patient, what is their name? N/A FIRST and LAST NAME of SPECIALIST PATIENT is seeing: Dr Doty What specialty is this? Cardi DIAGNOSIS Patient is being seen for (Not a body part or a procedure): heart surgery follow up Have you seen this SPECIALIST for this PROBLEM/DX before?Yes at rb If YES, when: Have you checked REVIEW or the APPT DESK to see if this referral has already been done or has visits left? NO Who referred the patient to this specialty? Name Is this visit:Follow Up Address of Specialist:[address] [place] [address] Phone # of Specialist:[phone] Fax #: (if applicable): Does patient have an appointment scheduled?: NO, cannot schedule until records received. Patient called for records today, 2 visits Date of appointment- (including a retro-request): no Is this appointment related to: Not MVA, WC or Surgery related documented in this encounter Plan of Treatment Not on file documented as of this encounter Visit Diagnoses Not on filedocumented in this encounter Care Teams Medical Parasitologist Relationship Specialty Start Date End Date Name, MD Nixon PCP - General 03/21/11 11/15/15 Alize Dela Cruz MD [address] [place], [place] [id number] PCP - General Internal Medicine 11/16/15 documented as of this encounter
--- OUTSIDE RECORDS SUMMARY | 2025-02-11 11:34 | XMS_ITS | Encounter Summary ---
Author Organization [facility] Address [address] [place] [address] Care Team Providers Care Milled Rice Broker Name Role Phone Name, Nixon CHAVES Primary Care Provider Alize Salazar MD Primary Care Provider [phone] Encounter Details Date Type Department Care Team Description 09/26/2012 Business Doc Medical Records [address] [place] [id number] Abstract, Provider Social History Tobacco Use Types [...] on filedocumented in this encounter Care Teams Milled Rice Broker Relationship Specialty Start Date End Date Name, MD Nixon PCP - General 03/21/11 11/15/15 Alize Dela Cruz MD [address] [place] [id number] PCP - General Internal Medicine 11/16/15 documented as of this encounter
--- OUTSIDE RECORDS SUMMARY | 2025-02-11 11:34 | XMS_ITS | Encounter Summary ---
Author Organization [facility] Address [address] [place] [address] Care Team Providers Care Opal Miner Name Role Phone Alize Dela Cruz MD Primary Care Provider [phone] Encounter Details Date Type Department Care Team Description 12/20/2017 Steam Clothes Press Operator Report Medical Records [address] [place] [address] Aiden Rivera MD Social History Tobacco Use [...] on filedocumented in this encounter Care Teams Opal Miner Relationship Specialty Start Date End Date Alize Dela Cruz MD [address] [place] [address] [id number] PCP - General Internal Medicine 11/16/15 documented as of this encounter
--- OUTSIDE RECORDS SUMMARY | 2025-02-11 11:34 | XMS_ITS | Clinical Summary ---
Author Organization [facility] [address] [place] [address] [place] [phone] Phone Care Team Providers Care Colloid Mill Operator Name Role Phone Alize Dela Cruz MD Primary Care Provider [phone] Allergies No known active allergies Medications ADULT [...] with left pleural effusion see discharge summary [facility] Jul, 2022 CAD (coronary artery disease) 08/18/2018 Overview (09/05/2024): Single vessel CABG after discovery by Cath for preop for aortic valve replacement Parkinsonism ([facility] V24, [facility] V28) 09/28/20 13 Overview (09/05/2024): Follows with neurology, Dr. Chaudhry Aortic stenosis 03/15/2010 Overview (09/05/2024): Moderate by echo 12/2009. S/p aortic valve replacement with a bovine valve, 04/30 Diverticulitis of colon without hemorrhage 10/24 Overview (09/05/2024): Incidental finding at colonoscopy 10/24/2006. Benign neoplasm of rectum and anal canal 006 Overview (09/05/2024): Colonoscopy .11.25. Large sessile rectal lesion, adenomatous with carcinoma [...] Encounters Date Type Department Care Team Description 12/29/2024 Telephone Adult Medicine [address] [phone] Alize Dela Cruz MD change in vision from Last 3 Months Immunizations Name Administration Dates Next Due Pneumococcal polysaccharide 23 valent (Pneumovax 23) 2yo and older 09/26/2012,05/10/2011 Td Tetanus diptheria (Tdvax) 7yo and older 10/09,05/01/2005,05/01/2005 Tdap Tetanus diptheria acell ular pertussis (Boostrix; Adacel) 7yo and older 08/02/2014 Surgical History Surgery Date Site/Laterality Comments COLONOSCOPY 01/26/2010 PROCEDURE: HISTORICAL COLONOSCOPY; COMMENT: No polyps OTHER SURGICAL HISTORY PROCEDURE: OK RADIAL KERATOTOMY; COMMENT: lasik sugery x 10 years COLONOSCOPY 2014 PROCEDURE: [...] of rectum and anal canal; COMMENT: Colonoscopy 11.11.25. Large sessile rectal lesion, adenomatous with carcinoma in situ. Smaller adenomatous polyp in the sigmoid colon. Endoscopic and surgical resection. Colonoscopy 10.24.06. Rectal scar noted. No evidence of recurrent [...] valve replaced 10/01/2011 DX:Aortic valve replaced Parkinsonism (CMS/HCC V24, C MS/HCC V28) 09/28/2013 DX:Parkinsonism (HCC); COMME NT: Follows with neurology, Dr. Chaudhry Aortic valve [...] 1:00 PM EDT Office Visit Adult Medicine [address] [phone] Alize Dela Cruz MD [address] [place] [phone] Health Maintenance Due Date Last Done Comments Zoster Vaccines (1 of 2) 1959 Pneumococcal Vaccine: 50+ Years (3 of 3 - PCV) 09/26/2013 09/26/2012, 05/10/2011 RSV Immunization Adult Patients (1 - 1-dose 75+ series) 2016 COVID-19 Vaccine (3 - Pfizer risk series) 01/07/2021 12/10/2020, 11/19/2020 Colorectal Cancer Screening: Colonoscopy 09/29/2022 04/26/2015 Social Influencers of Health Screening 09/29/2022 Hypertension/CHF/CAD Annual BMP Blood Test 01/02/2025 01/03/2024 Depression Screening 05/11/2025 05/11/2024 Falls Risk Assessment 05/11/2025 05/11/2024 Medicare Annual Wellness Visit 05/11/2025 05/11/2024 Influenza Vaccine (Season Ended) 2025 DTaP,Tdap,and Td Vaccines (5 - Td or [...] age to complete this topic Meningococcal B Vaccine Aged Out No l onger eligible based on patient's age to complete this topic RSV Immunization Patients Under 20 months Aged Out No longer eligible based on patient's age to complete this topic Varicella Vaccines Aged Out No longer eligible based on patient's age to complete this topic Procedures Procedure Name Priority Date/Time Associated Diagnosis Comments DEPRESSION SCREENING Routine 05/11/2024 FALLS RISK ASSESSMENT Routine 05/11/2024 ANNUAL BMP BLOOD TEST Routine 01/03/2024 LIPID PANEL Routine 01/03/2024 COLONOSCOPY Routine 04/26/2015 from Last 3 Months or Most Recently Relevant to Health Maintenance Results * Falls Risk Assessment (05/11/2024) [facility] [address] Falls Risk Assessment abstracted [facility] Provider HEALTH MAINTENANCE Final Result * Depression Screening (05/11/2024) Pathologist [facility] Depression Screening abstracted [facility] Provider HEALTH MAINTENANCE Final Result * Annual BMP Blood Test (01/03/2024) Pathologist [facility] Annual BMP Blood Test abstracted Result [facility] Provider HEALTH MAINTENANCE Final Result * (ABNORMAL) Lipid panel (01/03/2024) [facility] [address] LDL/HDL Ratio 3 0 - 4 Triglycerides 57 0 - 150 mg/dL Cholesterol 103 0 - 200 mg/dL HDL 37(A) >=40 mg/dL LDL Cholesterol 55 0 - 100 mg/dL Blood Venous blood specimen / Unknown Result [facility] Provider LAB BLOOD ORDERABLES Barbara l Result * Colonoscopy (04/26/2015) Pathologist [facility] Colonoscopy no interpretation , abstracted Anatomical Region Laterality Modality Other [facility] Provider HEALTH MAINTENANCE Final Result from Last 3 Months or Most Recently Relevant to Health Maintenance Insurance MEDICARE [facility] Advance Directives Documents on File Type Date Recorded Patient Needle Punch Operator Expl anation Health Care Decision (hx) 08/06/2022 AD ACOSTA DIRECTIVE Health Care Decision (hx) 08/02/2022 AD ACOSTA DIRECTIVE Care Teams Colloid Mill Operator Relationship Specialty Start Date End Date Alize Dela Cruz MD [address] [facility] [place] [address] PCP - General Internal Medicine 11/16/15
--- OUTSIDE RECORDS SUMMARY | 2025-02-11 11:35 | XMS_ITS | Encounter Summary ---
Author Organization [facility] Address [address] [place] [address] Care Team Providers Care Water Vessel Captain Name Role Phone Alize Dela Cruz MD Primary Care Provider [phone] Encounter Details Date Type Department Care Team Description 09/01/2022 Hospital Medical Records [address] [place] [address] Abstract, Provider Social History Tobacco Use Types [...] was confirmed or suspected to have Coronavirus/COVID-19? Yes 08/22/2022 10:31 AM EDT documented as of this encounter Plan of Treatment Not on file documented as of this encounter Visit Diagnoses Not on filedocumented in this encounter Care Teams Water Vessel Captain Relationship Specialty Start Date End Date Alize Dela Cruz MD [address] [place], [place] [phone] PCP - General Internal Medicine 11/16/15 documented as of this encounter
--- OUTSIDE RECORDS SUMMARY | 2025-02-11 11:35 | XMS_ITS | Encounter Summary ---
Author Organization [facility] Address [address] [place] [address] Care Team Providers Care Mail Weigher Name Role Phone Alize Dela Cruz MD Primary Care Provider [phone] Encounter Details Date Type Department Care Team (Late st Contact Info) Description 09/18/2022 Scanned Document [address] [facility] [address] [place] [phone] Cardiology, Scan Social History Tobacco Use [...] this encounter Results * LAB RESULT (09/26/2022) us Scan Cardiology HX AMB PROCEDURES Final Result documented in this encounter Visit Diagnoses Not on filedocumented in this encounter Care Teams Mail Weigher Relationship Specialty Start Date End Date Alize Dela Cruz MD PCP - General 08/09/22 documented as of this encounter
--- OUTSIDE RECORDS SUMMARY | 2025-02-11 11:35 | XMS_ITS | Encounter Summary ---
Author Organization [facility] Address [address] [place] [address] Care Team Providers Care Power Plant Mechanic Name Role Phone Alize Dela Cruz MD Primary Care Provider [phone] Encounter Details Date Type Department Care Team (Late st Contact Info) Description 11/20/2022 Scanned Document [address] [place] [phone] Provider, Generic Social History Tobacco Use [...] PM EST Ordered by an unspecified provider. us Generic Provider HX AMB PROCEDURES Final Result documented in this encounter Visit Diagnoses Not on filedocumented in this encounter Care Teams Power Plant Mechanic Relationship Specialty Start Date End Date Alize Dela Cruz MD PCP - General 08/09/22 documented as of this encounter
--- OUTSIDE RECORDS SUMMARY | 2025-02-11 11:35 | XMS_ITS | Encounter Summary ---
Author Organization [facility] Address [address] [place] [address] Care Team Providers Care Glassware Maker Name Role Phone Alize Dela Cruz MD Primary Care Provider [phone] Encounter Details Date Type Department Care Team Description 08/24/2022 Stocklayer Report Medical Records [address] [place] [id number] Tristan Doty MD Social History Tobacco Use [...] on filedocumented in this encounter Care Teams Glassware Maker Relationship Specialty Start Date End Date Alize Dela Cruz MD [address] [place] [address] PCP - General Internal Medicine 11/16/15 documented as of this encounter
--- OUTSIDE RECORDS SUMMARY | 2025-02-11 11:35 | XMS_ITS | Encounter Summary ---
Author Organization [facility] Address [address] [place] [address] Care Team Providers Care Sugar Mill Worker Name Role Phone Alize Dela Cruz MD Primary Care Provider [phone] Encounter Details Date Type Department Care Team (Late st Contact Info) Description 11/14/2022 Scanned Document [address] [place] [phone] Cardiology, Scan Social History Tobacco Use [...] on filedocumented in this encounter Care Teams Sugar Mill Worker Relationship Specialty Start Date End Date Alize Dela Cruz MD PCP - General 08/09/22 documented as of this encounter
--- OUTSIDE RECORDS SUMMARY | 2025-02-11 11:35 | XMS_ITS | Encounter Summary ---
Author Organization [facility] Address [address] [place] [address] Care Team Providers Care Hand Touch Up Painter Name Role Phone Alize Dela Cruz MD Primary Care Provider [phone] Encounter Details Date Type Department Care Team (Late st Contact Info) Description 09/12/2022 Scanned Document [address] [facility] [address] [place] [phone] Cardiology, Scan Social History Tobacco Use [...] this encounter Results * ECG 12-LEAD (09/12/2022) us Scan Cardiology ECG ORDERABLES Final Result documented in this encounter Visit Diagnoses Not on filedocumented in this encounter Care Teams Hand Touch Up Painter Relationship Specialty Start Date End Date Alize Dela Cruz MD PCP - General 08/09/22 documented as of this encounter
--- OUTSIDE RECORDS SUMMARY | 2025-02-11 11:35 | XMS_ITS | Encounter Summary ---
Author Organization [facility] Address [address] [place] [address] Care Team Providers Care Roper Operator Name Role Phone Alize Dela Cruz MD Primary Care Provider [phone] Reason for Visit * Reason Onset Date Comments other 08/20/2022 Pt's daughter Farrukh burrows returning call received from Dr Dela Cruz's nurse on Saturday08-17-22 per pt's daughter Dinah Nix states she was informed by the nurse on Saturday to call back is she had not received any contact re: home health visits by a hospice case manager and she has not heard anything concerning this and requests call back on her cell# Encounter Details Date Type Department Care Team Description 08/20/2022 Telephone Adult Medicine [address] [phone] Alize Dela Cruz MD [address] [place] [phone] other (Pt's daughter Dinah returning call received from Dr Dela Cruz's nurse on Saturday08-17-22 per pt's daughter Dinah Nix states she was informed by the nurse on Saturday to call back is she had not received any contact re: home health visits by a hospice case manager and she has not heard anything concerning this and requests call back on her cell# ) Social History Tobacco Use Types Packs/Day Years [...] In the last 10 days, have elli hsu been in contact with someone who was confirmed or suspected to have Coronavirus/COVID-19? Yes 08/22/2022 10:31 AM EDT documented as of this encounter Miscellaneous Notes * Telephone Encounter - Uriel Enrique L.P.N. - 08/23/2022 2:25 PM EDT Called [facility]ai MATTHEWA sent intake information Case pending if accepted case will not start until nextweek Left a detailed message for daughter with update Spoke with khai TOWNSEND they will accepted the case Starting Saturday or Saturday Tfhey want to add nursing Dr. Dela Cruz gave me a VO to add nursing VNA Nurse will call the daughter with update * Telephone Encounter - Kirsty Burgess R.N. - 08/20/2022 3:14 PM EDT Outreach called on Saturday, pt was d/C and he was told that the vna would see him , Except that no services were started because the hospital could not find any agency to see him Pt is to see dr Dela Cruz and then he will initiate orders, pt lives in [facility] vna pool * Telephone Encounter - Ira Tai - 08/20/2022 3:09 PM EDT Pt's daughter Dinah returning call received from Dr Dela Cruz's nurse on Saturday08-17-22 per pt's daughter Dinah Nix states she was informed by the nurse on Saturday to call back is she had not received any contact re: home health visits by a hospice case manager and she has not heard anything concerning this and requests call back on her cell# documented in this encounter Plan of Treatment Not on file documented as of this encounter Visit Diagnoses Not on filedocumented in this encounter Care Teams Roper Operator Relationship Specialty Start Date End Date Alize Dela Cruz MD [address] [place] [phone] PCP - General Internal Medicine 11/16/15 documented as of this encounter
== END 2025-02-11 11:13 | disposition home or self-care (01) ==
PROVIDERS: PCP Internal Medicine; Visit Provider Psychiatry & Neurology Neurology
DX: G20.A1 Parkinson's disease without dyskinesia, without mention of fluctuations (principal)
CPT/HCPCS: 99214; G2211

== ENCOUNTER → 2025-02-11 10:05 | Outpatient (BNVA) | payer MEDICARE, OTHER, SELFPAY | PROVIDERS: PCP Internal Medicine; Visit Provider Psychiatry & Neurology Neurology | DX: G20.A1 Parkinson's disease without dyskinesia, without mention of fluctuations (principal); Z87.891 Personal history of nicotine dependence | CPT/HCPCS: 99212 ==

== ENCOUNTER 2025-02-17 10:48 | Outpatient (AMB) | payer MEDICARE, OTHER, SELFPAY ==
--- NOTE | 2025-02-17 11:08 | MHC.OFFVIS ---
Vital Signs 02/17/25 11:09 Height 6 ft Weight 185 lb 3.013 oz BMI 25.1 BP 92/60 Blood Pressure Location Rt brachial Position Sitting Pulse 74 Pulse Source Pulse Oximeter Pulse Oximetry (%) 98 Oxygen Delivery Method Room Air Intake Visit Reasons: ILD Allergies No Known Allergies Allergy (Verified 02/17/25 11:11) HPI Comments Details: The patient is an 84-year-old gentleman with a known history of Parkinson's disease and also valvular disease who apparently has been the developing worsening dyspnea symptoms. The symptoms appear to be progressive in nature. He has been getting short of breath even with minimal activities and daily sure his around the house. he also complains of a congested all the time. His current medications have not been helping those symptoms. he is tolerating his diuresis well. Even with the Parkinson's the family denies any choking episodes while eating. In the meantime we did talk about considering a wedge pillow to allow him to have the head of bed elevated and minimize silent aspirations. During the visit the patient did undergo a 6 minute walk test and he did desaturate just at the end of the study to 80%. Therefore the pacing was placed on at 2 L pulse device and that was able to maintain his pulse ox in the mid 90s. Therefore, will request a conserving device the patient with the cylinder in the pulse valve to allow oxygen supplementation but not to resulted in any risk of fall specially with his Parkinson's. 06/20/2022 the patient is here for a pulmonary follow-up visit. Overall the patient feels better. His chest congestion has improved dramatically. He still has a cough in the has shortness of breath with activity. He is using the oxygen. The oxygen therapy has been affecting beneficial. However he has not gotten his conserving device as of yet. I will resubmit prescription to his [employer] for a conserving device pulse valve for his be cylinder. This way it will last him a lot longer. He has been taking the azithromycin 3 times a week. He is mucus burden has significantly improved. He denies any significant mucus plugging. We did review his chest x-ray demonstrating some slight pleural thickening or small pleural effusion on the left. in addition to that he did undergo pulmonary function studies which demonstrated a moderate restrictive ventilatory defect and also severe diffusion impairment. Although better than expected. 09/26/2022 the patient is here for a pulmonary follow-up visit. Overall he is doing a lot better from a respiratory status. He did undergo his valve replacement intervention. Prior to that he had a chest x-ray without significant pleural effusion. He was subsequently transferred to a [place] hospital due to availability issues. There he did undergo a thoracentesis draining more than a L of dark serous fluid. ultimately his course was complicated by COVID. After he coverage he was able to get his surgery. I do believe that he did require to thoracentesis. At this point the patient did start pulmonary rehab. He has been doing very well. He has not required the oxygen as of yet. although, he just started the rehab. Will have him continue with the oxygen at home and to use with activity until after the holidays. If the patient is still not requiring the oxygen with his exercise he can always call and I will discontinue the oxygen at that time. The patient should have a chest x-ray just to assess the baseline after the thoracentesis and surgery. His breath sounds are diminished and I do not foresee that he has significant pleural effusions at this time. 03/27/2023 the patient is here for a pulmonary follow-up visit. The patient overall is feeling well. He is walking to and have miles a day. Denies any respiratory limitations. No longer needing oxygen. His last chest x-ray was back in September 2022 demonstrating interval improvement of the pleural effusion just with a trace effusion noted at that time. His respiratory exam is completely normal without any evidence of any residual pleural fluid. Clinically the patient is doing well from a respiratory status therefore will hold off on any additional imaging studies. He is not using any inhalers. Will plan to follow-up in a year's time unless he has any issues he will call the office. When he returns in a year will have him undergo pulmonary function studies and a repeat chest x-ray. Otherwise sooner if he develops any worsening symptoms. 03/17/2024 the patient is here for a pulmonary follow-up visit. The patient overall has been doing okay. Apparently few months back he did see his primary care doctor and he was diagnosed with a lower respiratory infection. He had an x-ray at [facility] do not have access to that x-ray this time. But he is feeling better although he still has a chronic cough productive in nature yellowish sputum. Denies any choking when he eats although he does have significant Parkinson's. Does not really limit his activity. He walks around 2 miles a day with his dog and denies any significant shortness of breath. The cough is productive with yellowish green phlegm at times he would denies any blood. Again I do have the x-ray report but previously 2021 he did have some pleural effusions noted on x-ray. I do believe that he likely has micro aspirations primarily due to his underlying Parkinson's. Will start him on azithromycin 3 times a week. The patient should have an EKG after he starts the medicine to make sure that his QTC is within normal. The patient should take the medicine for about 4 weeks and then stopping then readdress. The patient returned for 6 months. If he has any worsening symptoms he will call for an earlier assessment. 09/25/2024 the patient is here for a pulmonary follow-up visit. Overall he is doing okay. He is still working with the Parkinson's with the neurologist. Still having chest congestion. Cough productive in nature. Sometimes difficult to expectorate. He did good in the azithromycin he felt better but was only for 4 weeks. Therefore, is reasonable to restart the azithromycin as a promotility agent and also mild antibiotic effect to help him with his congestion from chronic bronchitis. We can tried this time for about 8 weeks to see if he gets any additional improvement. Will plan to follow-up in 4-6 months. He should also get an EKG which she already has planned sometime in October while he is taking the azithromycin to make sure that his QT is within normal limits. If any issues arise prior to the next visit he will call for an earlier assessment. 02/17/2025 the patient is here for pulmonary follow-up visit. Overall he is doing okay. Continues to have intermittent cough. At times productive. But overall better. He has not been taking any antibiotics. The spouse is concerned about too much antibiotics resulting resistance. In addition to that with his history of Parkinson's we have to be careful with potential adverse effects from medications. Currently he is doing good with the medications that he has. I did recommend a nasal spray that would help as needed. Ipratropium nasal spray with help drying the secretions so he does not develop postnasal drip and therefore pooling of secretions in the back of the throat that usually results in constant clearing coughing. The patient also should have a rescue inhaler available. He can use it as needed. And he can follow-up in a year's time. He has an issues prior to this he will call for an earlier assessment. 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 Mother CVD (cardiovascular disease) Daughter Macular degeneration Sister Colon cancer Cataract Brother Colon cancer Cataract Lung cancer Social History Household Members: Spouse Housing: House Alcohol intake: never Patient Tobacco Use Status: Former Tobacco user Tobacco use type: Cigarette Years Smoked: 15 Years service: Yes ([employer]) Current occupational status: retired Review of Systems Const Denies chills, Denies fatigue, Denies fever(s), Denies frequent falls, Denies weakness, Denies weight gain and Denies weight loss ENT Denies dizziness Card Denies chest pain, Denies leg edema, Denies lightheadedness, Denies palpitations, Denies dyspnea, Reports dyspnea on exertion, Denies orthopnea and Denies other (loss of consciousness) Resp Reports change in phlegm color, Reports chest congestion, Denies cough, Denies dyspnea and Reports dyspnea on exertion GI Denies hematochezia and Denies change in stool character Musc Reports abnormal gait, Denies muscle weakness, Denies numbness, Denies radiating pain into limb and Denies tingling Skin/Breast Denies rash Neuro Reports abnormal gait, Denies dizziness, Denies frequent falls, Denies numbness, Denies tingling, Reports tremor(s) and Denies weakness Endo Denies fatigue and Denies palpitations Physical Exam Vital Signs: Last Vital Signs Pulse 74 02/17/25 11:09 BP 92/60 02/17/25 11:09 Pulse Ox 98 02/17/25 11:09 Oxygen Delivery Method Room Air 02/17/25 11:09 BMI result Body Mass Index 25.1 Const General: cooperative, comfortable, no acute distress, alert and awake Nutritional Appearance: thin Orientation/consciousness: patient oriented x3 HEENT Head: Yes atraumatic Neck Neck: Yes trachea midline, Yes supple and Yes no JVD Chest Chest palpation & inspection: normal inspection of the chest Resp Effort & Inspection: normal respiratory effort Auscultation: no crackles and diminished lung sounds Cardio Jugular venous distension: no JVD Palpation: normal PMI Rate: regular rate Rhythm: regular rhythm Heart sounds: S1 normal heart sound present and S2 normal heart sound present GI Auscultation: normal bowel sounds Skin General skin exam: no rashes or lesions noted Neuro General: patient oriented x3 and no focal motor deficits Extrem General: Yes no clubbing, cyanosis or edema Psych Appearance: grossly normal Assessment & Plan Assessment & Plan (1) ILD (interstitial lung disease): Code(s): J84.9 - Interstitial pulmonary disease, unspecified Category: Medical (2) Pneumoconiosis: Code(s): J64 - Unspecified pneumoconiosis Category: Medical (3) Dyspnea: Code(s): R06.00 - Dyspnea, unspecified Category: Medical Qualifiers: Dyspnea type: shortness of breath Qualified Code(s): R06.02 - Shortness of breath Plan start Ipratropium nasal spray as needed ALEJANDRA as needed F/U 1 yr Medications: New ipratropium bromide administer into each nostril 2 sprays intranasal TID PRN 15 mL 6RF allergy symptoms Coding Level of Care Code Est Pt Level 4 (32439) Complex EM visit Add On G2211 Diagnoses ILD (interstitial lung disease) J84.9 Pneumoconiosis J64 Shortness of breath R06.02 Dyspnea type: shortness of breath Time Spent (min) 16
[2025-02-17 11:09] VITALS: BP 92/60; PULSE 74; O2SAT 98; BMI 25.1
--- OUTSIDE RECORDS SUMMARY | 2025-02-17 12:13 | XMS_ITS | Encounter Summary ---
Author Organization [facility] Address [address] [place] [address] Care Team Providers Care Spray Crew Name Role Phone Alize Dela Cruz MD Primary Care Provider Unavailabl e Encounter Details Date Type Department Care Team (Late st Contact Info) Description 11/14/2022 Scanned Document [address] [phone] Cardiology, Scan Social History Tobacco [...] on filedocumented in this encounter Care Teams Spray Crew Relationship Specialty Start Date End Date Alize Dela Cruz MD PCP - General 08/09/22 documented as of this encounter
--- OUTSIDE RECORDS SUMMARY | 2025-02-17 12:13 | XMS_ITS | Encounter Summary ---
Author Organization [facility] Address [address] [place] [address] Care Team Providers Care Business Systems Lead Name Role Phone Alize Dela Cruz MD Primary Care Provider Unavailabl e Encounter Details Date Type Department Care Team (Late st Contact Info) Description 11/20/2022 Scanned Document [facility] 80 [facility] [address] [place] [phone] Provider, Generic Social History Tobacco Use [...] on filedocumented in this encounter Care Teams Business Systems Lead Relationship Specialty Start Date End Date Alize Dela Cruz MD PCP - General 08/09/22 documented as of this encounter
--- OUTSIDE RECORDS SUMMARY | 2025-02-17 12:13 | XMS_ITS | Encounter Summary ---
Author Organization [facility] Address [address] [place] [address] Care Team Providers Care Director Of Pulmonary Unit Name Role Phone Alize Dela Cruz MD Primary Care Provider Unavailabl e Encounter Details Date Type Department Care Team (Late st Contact Info) Description 09/18/2022 Scanned Document [facility] 80 [facility] [address] [place] [phone] Cardiology, Scan Social History Tobacco Use [...] filedocumented in this encounter Care Teams Director Of Pulmonary Unit Relationship Specialty Start Date End Date Alize Dela Cruz MD PCP - General 08/09/22 documented as of this encounter
--- OUTSIDE RECORDS SUMMARY | 2025-02-17 12:13 | XMS_ITS | Encounter Summary ---
Author Organization [facility] Address [address] [place] [address] Care Team Providers Care Respiratory Medicine Physician Name Role Phone Alize Dela Cruz MD Primary Care Provider Unavailabl e Encounter Details Date Type Department Care Team (Late st Contact Info) Description 10/29/2023 Scanned Document [address] [place] [phone] Cardiology, Scan Social History Tobacco Use [...] on filedocumented in this encounter Care Teams Respiratory Medicine Physician Relationship Specialty Start Date End Date Alize Dela Cruz MD PCP - General 08/09/22 documented as of this encounter
--- OUTSIDE RECORDS SUMMARY | 2025-02-17 12:13 | XMS_ITS | Clinical Summary ---
Author Organization [facility] [address] [place] [address] [place] [phone] Phone Care Team Providers Care Trench Pipe Layer Name Role Phone Alize Dela Cruz MD Primary Care Provider [phone] Allergies No known active allergies Medications ADULT [...] with left pleural effusion see discharge summary [facility] Jul, 2022 CAD (coronary artery disease) 08/18/2018 Overview (09/05/2024): Single vessel CABG after discovery by Cath for preop for aortic valve replacement Parkinsonism ([facility] V24, [facility] V28) 09/28/20 13 Overview (09/05/2024): Follows with [...] Care Team Description 12/29/2024 Telephone Adult Medicine [address] [phone] Alize Dela Cruz MD change [...] COMMENT: No polyps OTHER SURGICAL HISTORY PROCEDURE: NC RADIAL KERATOTOMY; COMMENT: lasik sugery x 10 [...] 1:00 PM EDT Office Visit Adult Medicine [address] [phone] Alize Dela Cruz MD [address] [place] [phone] Health Maintenance Due Date Last Done Comments [...] Maintenance Results * Falls Risk Assessment (05/11/2024) [facility] Falls Risk Assessment abstracted [facility] Provider HEALTH MAINTENANCE Final Result * Depression Screening (05/11/2024) Pathologist [facility] Depression Screening abstracted [facility] Provider HEALTH MAINTENANCE Final Result * Annual BMP Blood Test (01/03/2024) Pathologist [facility] Annual BMP Blood Test abstracted Result [facility] Provider HEALTH MAINTENANCE Final Result * (ABNORMAL) Lipid panel (01/03/2024) [facility] LDL/HDL Ratio 3 0 - 4 Triglycerides 57 0 - 150 mg/dL Cholesterol 103 0 - 200 mg/dL HDL 37(A) >=40 mg/dL LDL Cholesterol 55 0 - 100 mg/dL Blood Venous blood specimen / Unknown Result [facility] Provider LAB BLOOD ORDERABLES Barbara l Result * Colonoscopy (04/26/2015) Pathologist [facility] Colonoscopy no interpretation , abstracted Anatomical Region Laterality Modality Other [facility] Provider HEALTH MAINTENANCE Final Result from Last 3 Months or Most Recently Relevant to Health Maintenance Insurance MEDICARE [facility] Advance Directives Documents on File Type Date Recorded Patient Advertising Display Rotator Expl anation Health Care Decision (hx) 08/06/2022 AD ACOSTA DIRECTIVE Health Care Decision (hx) 08/02/2022 AD ACOSTA DIRECTIVE Care Teams Trench Pipe Layer Relationship Specialty Start Date End Date Alize Dela Cruz MD [address] [facility] [place] [address] PCP - General Internal Medicine 11/16/15
--- OUTSIDE RECORDS SUMMARY | 2025-02-17 12:13 | XMS_ITS | Encounter Summary ---
Author Organization [facility] Address [address] [place] [address] Care Team Providers Care Boat Fueler Name Role Phone Alize Dela Cruz MD Primary Care Provider Unavailabl e Encounter Details Date Type Department Care Team (Late st Contact Info) Description 09/12/2022 Scanned Document [address] [facility] [address] [place] [phone] Cardiology, Scan Social History Tobacco Use [...] on filedocumented in this encounter Care Teams Boat Fueler Relationship Specialty Start Date End Date Alize Dela Cruz MD PCP - General 08/09/22 documented as of this encounter
--- OUTSIDE RECORDS SUMMARY | 2025-02-17 12:13 | XMS_ITS | Clinical Summary ---
Author Organization [facility] Address [address] [place] [address] Care Team Providers Care Coat Presser Name Role Phone Alize Dela Cruz MD Primary Care Provider Unavailabl e Allergies No known active allergies Medications atorvastatin [...] this topic Medical Devices Implanted Type Area Development Writer Device Identifier Shelf Expiration Date Model / Serial / Lot Medtronic Evolut Fx Transcatheter Aortic Valve Implanted:Qty: 1 on 08/30/2022 by Yvon Han MD at [facility] Valve N/A: Aorta Medtronic [id number] 06/10/2024 [employer]OLUTFX- 26 / [id number] / Description:valve prepared b y Kandice Davis Medtronic Rep SN, valve size, and freeze watch verified by Kandice Davis [employer] and Amada Rogel RN Insurance MEDICARE PART A & B [facility] SUPPLEMENT ONLY Advance Directives * Full Code (Latest Code Status on File) Date Activated Date Inactivated Comments 08/31/2022 1:13 AM * Full Code Date Activated Date Inactivated Comments 08/30/2022 1:11 PM 08/31/2022 1:13 AM * Full Code Date Activated Date Inactivated Comments 08/08/2022 9:36 PM 08/30/2022 11:26 AM Care Teams Coat Presser Relationship Specialty Start Date End Date Alize Dela Cruz MD PCP - General 08/09/22
== END 2025-02-17 11:56 | disposition home or self-care (01) ==
PROVIDERS: PCP Internal Medicine; Visit Provider Hospitalist
DX: J84.9 Interstitial pulmonary disease, unspecified (principal); J64 Unspecified pneumoconiosis; R06.02 Shortness of breath
CPT/HCPCS: 99214; G2211

== ENCOUNTER → 2025-02-17 10:48 | Outpatient (BNVA) | payer MEDICARE, OTHER, SELFPAY | PROVIDERS: PCP Internal Medicine; Visit Provider Hospitalist | DX: J84.9 Interstitial pulmonary disease, unspecified (principal); J64 Unspecified pneumoconiosis; R06.02 Shortness of breath | CPT/HCPCS: 99212 ==

== ENCOUNTER 2025-09-18 09:29 | Outpatient (REF) | payer MEDICARE, OTHER, SELFPAY ==
[2025-09-18 12:28] LABS: Resp Syncy Virus RNA Qual PCR NEGATIVE (Negative); SARS COV2 PCR INHOUSE NEGATIVE (Negative)
== END 2025-09-18 09:30 | disposition home or self-care (01) ==
LOC: HO.LNP 09:29
PROVIDERS: PCP Internal Medicine; Visit Provider Physician Assistant
DX: J06.9 Acute upper respiratory infection, unspecified (principal); Z87.891 Personal history of nicotine dependence
CPT/HCPCS: 87637; 99212

== ENCOUNTER 2025-09-18 09:29 | Outpatient (AMB) | payer MEDICARE, OTHER, SELFPAY ==
--- OUTSIDE RECORDS SUMMARY | 2025-09-18 09:30 | XMS_ITS | Encounter Summary ---
Author Organization [facility] Address [address] [place] [address] Care Team Providers Care Special Services Supervisor Name Role Phone Alize Dela Cruz MD Primary Care Provider Unavailabl e Encounter Details Date Type Department Care Team (Late st Contact Info) Description 10/29/2023 Scanned Document [address] [place] [phone] Cardiology, Scan Social History Tobacco Use [...] on filedocumented in this encounter Care Teams Special Services Supervisor Relationship Specialty Start Date End Date Alize Dela Cruz MD PCP - General 08/09/22 documented as of this encounter
--- OUTSIDE RECORDS SUMMARY | 2025-09-18 09:31 | XMS_ITS | Encounter Summary ---
Author Organization [facility] Address [address] [place] [address] Care Team Providers Care Pharmacy Resource Tech Name Role Phone Alize Dela Cruz MD Primary Care Provider Unavailabl e Encounter Details Date Type Department Care Team (Late st Contact Info) Description 11/20/2022 Scanned Document [facility] 80 [facility] [address] [place] [phone] Provider, Generic Social History Tobacco Use [...] on filedocumented in this encounter Care Teams Pharmacy Resource Tech Relationship Specialty Start Date End Date Alize Dela Cruz MD PCP - General 08/09/22 documented as of this encounter
--- OUTSIDE RECORDS SUMMARY | 2025-09-18 09:31 | XMS_ITS | Clinical Summary ---
Author Organization [facility] Address [address] [place] [address] Care Team Providers Care Technical Rep Name Role Phone Alize Dela Cruz MD [...] 75 09/01/2022 12:27 PM EST Temperature 36.1 C (97 F) 09/01/2022 12:27 PM EST Respiratory Rate 16 09/01/2022 8:50 AM EST Oxygen Saturation 96% 09/01/2022 12:27 PM EST Inhaled Oxygen Concentration - - Weight 74.4 kg (164 lb) 08/31/2022 6:45 PM EST Height 182.9 cm (6') 08/31/2022 6:45 PM EST Body Mass Index 22.24 08/31/2022 6:45 PM EST Plan of Treatment Health Maintenance Due Date Last Done Comments Advance Care Planning 1941 Zoster (Shingles) Vaccine (1 of 2) 1991 Pneumococcal Vaccines 50+ (2 of 2 - PCV) 09/26/2013 09/26/2012, 05/10/2011 RSV Vaccine 50 years and older and Patients (1 - 1-dose 75+ series) 2016 Influenza Vaccine 05/21/2025 COVID-19 Vaccine (3 - 2024-2 6 season) 2025 12/10/2020, 11/19/2020 DTaP/Tdap/Td Vaccines (4 - T d or Tdap) 10/09/2028 10/09/2018, 08/02/2014, 05/01/2005 Hepatitis B Vaccines Aged Out No long er eligible based on patient's age to complete this topic Medical Devices Implanted Type Area Organic Search Lead Device Identifier Shelf Expiration Date Model / Serial / Lot Medtronic Evolut Fx Transcatheter Aortic Valve Implanted:Qty: 1 on 08/30/2022 by Yvon Han MD at [facility] Valve N/A: Aorta Medtronic [id number] 06/10/2024 EVOLUTFX- 26 / [id number] / Description:valve prepared b y Kandice Davis Medtronic Rep SN, valve size, and freeze watch verified by Kandice [employer] and Amada Rogel RN Insurance MEDICARE PART A & B [facility] SUPPLEMENT ONLY Advance Directives * Full Code (Latest Code Status on File) Date Activated Date Inactivated Comments 08/31/2022 1:13 AM * Full Code Date Activated Date Inactivated Comments 08/30/2022 1:11 PM 08/31/2022 1:13 AM * Full Code Date Activated Date Inactivated Comments 08/08/2022 9:36 PM 08/30/2022 11:26 AM Care Teams Technical Rep Relationship Specialty Start Date End Date Alize Dela Cruz MD PCP - General 08/09/22
--- OUTSIDE RECORDS SUMMARY | 2025-09-18 09:31 | XMS_ITS | Encounter Summary ---
Author Organization [facility] Address [address] [place] [address] Care Team Providers Care Assembler Tubing Name Role Phone Alize Dela Cruz MD Primary Care Provider Unavailabl e Encounter Details Date Type Department Care Team (Late st Contact Info) Description 09/18/2022 Scanned Document [facility] 80 [facility] [address] [place] [phone] Cardiology, Scan Social History Tobacco Use [...] on filedocumented in this encounter Care Teams Assembler Tubing Relationship Specialty Start Date End Date Alize Dela Cruz MD PCP - General 08/09/22 documented as of this encounter
--- OUTSIDE RECORDS SUMMARY | 2025-09-18 09:31 | XMS_ITS | Encounter Summary ---
Author Organization [facility] Address [address] [place] [address] Care Team Providers Care Remedy Developer Name Role Phone Alize Dela Cruz MD Primary Care Provider Unavailabl e Encounter Details Date Type Department Care Team (Late st Contact Info) Description 11/14/2022 Scanned Document [address] [phone] Cardiology, Scan Social History Tobacco [...] on filedocumented in this encounter Care Teams Remedy Developer Relationship Specialty Start Date End Date Alize Dela Cruz MD PCP - General 08/09/22 documented as of this encounter
--- OUTSIDE RECORDS SUMMARY | 2025-09-18 09:31 | XMS_ITS | Clinical Summary ---
Author Organization [facility] [address] [place] [address] [place] [phone] Phone Care Team Providers Care Fashion Stylist Name Role Phone Alize Dela Cruz MD Primary Care Provider [phone] Allergies No known active allergies Medications ADULT LOW DOSE ASPIRIN ORAL Take 82 mg by mouth 1 (one) time each day. Acti ve carbidopa-lev odopa (SINEMET) 10-100 mg per tablet Take 1 tablet by mouth 2 (two) times a day. Active dextran 70/hypromello se (ARTIFICIAL TEARS, PF, [...] day. Active atorvastatin (LIPITOR) 40 mg tablet TAKE 1 TABLET BY MOUTH 1 TIME EACH DAY. 90 tablet 025 Active Active Problems Problem Noted Date Diagnosed Date DNR (do not resuscitate) 10/12/2024 Basal cell carcinoma (BCC) of face 05/11/2024 COVID-19 08/23/2022 Overview (09/05/2024): shortness of breath cough fever, hospitalization for most likely CHF with left pleural effusion see discharge summary [facility] Jul, 2022 CAD (coronary artery disease) 08/18/2018 Overview (09/05/2024): Single vessel CABG after discovery by Cath for preop for aortic valve replacement Parkinsonism ([facility] V24, [facility] V28) 09/28/20 13 Overview (09/05/2024): Follows with neurology, Dr. Chaudhry Aortic stenosis 03/15/2010 Overview (09/05/2024): Moderate by echo 12/2009. S/p aortic valve replacement with a bovine valve, 04/30 Diverticulitis of colon without hemorrhage 10/24 Overview (09/05/2024): Incidental finding at colonoscopy 10/24/2006. Benign neoplasm of rectum and anal canal 006 Overview (09/05/2024): Colonoscopy ..05. Large sessile rectal lesion, adenomatous with carcinoma [...] Essential hypertension, benign 07/03/2005 Pure hypercholesterolemia 07/03/2005 Immunizations Immunization Administration Dates Next Due Pneumococcal polysaccharide 23 valent (Pneumovax 23) 2yo and older 09/26/2012,05/10/2011 Td Tetanus diptheria (Tdvax) 7yo and older 10/09,05/01/2005,05/01/2005 Tdap Tetanus diptheria acell ular pertussis (Boostrix; Adacel) 7yo and older 08/02/2014 Surgical History Surgery Date Site/Laterality Comments COLONOSCOPY 01/26/2010 PROCEDURE: HISTORICAL COLONOSCOPY; COMMENT: No polyps OTHER SURGICAL HISTORY PROCEDURE: CA RADIAL KERATOTOMY; COMMENT: lasik sugery x 10 [...] of rectum and anal canal; COMMENT: Colonoscopy 11. Large sessile rectal lesion, adenomatous with carcinoma [...] Used Date Smoking Tobacco: Former Cigarettes 0.5 Q uit: 10/21/1969 Smokeless Tobacco: Never Tobacco [...] Sign Reading Time Taken Comments Blood Pressure 121/71 05/03/2025 1:02 PM EDT Pulse 88 05/03/2025 1:02 PM EDT Temperature 35.8 C (96.4 F) 05/03/2025 1:02 PM EDT Respiratory Rate 20 05/03/2025 1:02 PM EDT Oxygen Saturation - - Inhaled Oxygen Concentration - - Weight 85.7 kg (189 lb) 05/03/2025 1:02 PM EDT Height 182.9 cm (6') 05/03/2025 1:02 PM EDT Body Mass Index 25.63 05/03/2025 1:02 PM EDT Plan of Treatment Upcoming Encounters Date Type Department Care Team (Late st Contact Info) Description 11/03/2025 9:30 AM EST Office Visit Adult Medicine [address] [phone] Alize Dela Cruz MD [address] [place] [phone] Health Maintenance Due Date Last Done Comments Zoster Vaccines (1 of 2) 1959 Pneumococcal Vaccine: 50+ Years (2 of 2 - PCV) 09/26/2013 09/26/2012, 05/10/2011 RSV Immunization Adult Patients (1 - 1-dose 75+ series) 2016 Colorectal Cancer Screening: Colonoscopy 04/26/2020 04/26/2015 COVID-19 Vaccine (3 - Pfizer risk series) 01/07/2021 12/10/2020, 11/19/2020 Social Influencers of Health Screening 09/29/2022 Depression Screening 10/21/2024 05/11/2024 Hypertension/CHF/CAD Annual BMP Blood Test 01/02/2025 01/03/2024 Falls Risk Assessment 05/11/2025 05/11/2024 Medicare Annual Wellness Visit 05/11/2025 05/11/2024 Influenza Vaccine (#1) 2025 DTaP,Tdap,and Td Vaccines (5 - Td [...] Maintenance Results * Falls Risk Assessment (05/11/2024) Falls Risk Assessment abstracted Historical Provider HEALTH MAINTENANCE Final Result * Depression Screening (05/11/2024) HM Depression Screening abstracted Historical Provider HEALTH MAINTENANCE Final Result * Annual BMP Blood Test (01/03/2024) Annual BMP Blood Test abstracted Historical Provider HEALTH MAINTENANCE Final Result * (ABNORMAL) Lipid panel (01/03/2024) Pathologist [facility] LDL/HDL Ratio 3 0 - 4 Triglycerides 57 0 - 150 mg/dL Cholesterol 103 0 - 200 mg/dL HDL 37(A) >=40 mg/dL LDL Cholesterol 55 0 - 100 mg/dL Blood Venous blood specimen / Unknown Historical Provider LAB BLOOD ORDERABLES Barbara l Result * Colonoscopy (04/26/2015) Pathologist [facility] Colonoscopy no interpretation , abstracted Anatomical Region Laterality Modality Other Historical Provider HEALTH MAINTENANCE Final Result from Last 3 Months or Most Recently Relevant to Health Maintenance Insurance MEDICARE [facility] Advance Directives Documents on File Type Date Recorded Patient Facing Baster Expl anation Health Care Decision (hx) 08/06/2022 AD ACOSTA DIRECTIVE Health Care Decision (hx) 08/02/2022 AD ACOSTA DIRECTIVE Care Teams Fashion Stylist Relationship Specialty Start Date End Date Alize Dela Cruz MD [address] [place] [id number] PCP - General Internal Medicine 11/16/15
--- OUTSIDE RECORDS SUMMARY | 2025-09-18 09:31 | XMS_ITS | Encounter Summary ---
Author Organization [facility] Address [address] [place] [address] Care Team Providers Care Insurance Verification Representative Name Role Phone Alize Dela Cruz MD Primary Care Provider Unavailabl e Encounter Details Date Type Department Care Team (Late st Contact Info) Description 09/12/2022 Scanned Document [address] [facility] [address] [place] [phone] Cardiology, Scan Social History Tobacco Use [...] on filedocumented in this encounter Care Teams Insurance Verification Representative Relationship Specialty Start Date End Date Alize Dela Cruz MD PCP - General 08/09/22 documented as of this encounter
--- OUTSIDE RECORDS SUMMARY | 2025-09-18 09:31 | XMS_ITS ---
Author Name [facility] Organization Unknown History of Medication Use Medication Directions Dispensed Refills Start Date End Date Stat losartan (COZAAR) 25 MG tablet Take 0.5 tablets (12.5 mg total) by mouth daily. 09/01/2022 10/02/2022 active apixaban (ELIQUIS) 2.5 MG tablet Take 1 tablet (2.5 mg total) by mouth every 12 (twelve) hours around the clock. 09/01/2022 active aspirin enteric coated (ECOTRIN LOW STRENGTH) 81 MG EC tablet Take 1 tablet (81 mg total) by mouth daily. Do not start before August 15, 2022. 08/15/2022 active torsemide (DEMADEX) 20 MG tablet Take 1 tablet (20 mg total) by mouth 2 (two) times a day in the morning and the early evening.. 08/14/2022 09/14/2022 active furosemide (LASIX) 40 MG tablet 08/08/2022 suspended atorvastatin (LIPITOR) 40 MG tablet Take 1 tablet (40 mg total) by mouth daily. 06/22/2022 suspended metoPROLOL TARTRATE (LOPRESSOR) 50 MG tablet Take 1 tablet (50 mg total) by mouth 2 (two) times a day. 06/22/2022 suspended carbidopa-levodopa (SINEMET) 10-100 MG per tablet Take 1 tablet by mouth 2 (two) times a day. 01/30/2022 active metoPROLOL SUCCINATE (TOPROL-XL) 25 MG 24 hr tablet Take 0.5 tablets (12.5 mg total) by mouth 2 (two) times a day. active rasagiline (AZILECT) 1 MG tablet Take 1 tablet (1 mg total) by mouth. active Problems Problem Status Onset Date Problem Type Date of Resoluti on Source Severe mitral regurgitation active 2022-08-08 ProblemAct [facility] LAD stenosis active 2022-08-08 ProblemAct [facility] Acute systolic heart failure active 2022-08-31 ProblemAct [facility] 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-24 ProblemAct [facility] Pure hypercholesterolemia active 2005-07-03 ProblemAct [facility] Von Willebrand disease active 2011-05-12 ProblemAct [facility] S/P AVR (aortic valve replacement) active 2022-08-08 ProblemAct [facility] Parkinsonism active 2013-09-28 ProblemAct [facility] Ascending aortic aneurysm active 2022-08-09 ProblemAct [facility] Severe aortic insufficiency active 2022-08-08 ProblemAct [facility] Aortic stenosis, severe active 2022-08-30 ProblemAct [facility] Benign essential hypertension active 2005-07-03 ProblemAc t [facility] Immunizations Vaccine Date Source Lot Number Status Td, Unspecified 10/09/2018 CCT [id number] completed Td, Unspecified 10/09/2018 CCT [id number] completed Td, Unspecified 10/09/2018 CCT [id number] completed Tdap 08/02/2014 CCT completed Tdap 08/02/2014 [facility] completed Pneumococcal Polysaccharide 23-Valent 09/26/2012 CCT [id number] completed Pneumococcal Polysaccharide 23-Valent 09/26/2012 CCT [id number] completed Pneumococcal Polysaccharide 23-Valent 05/10/2011 CCT [id number] completed Pneumococcal Polysaccharide 23-Valent 05/10/2011 CCT [id number] completed DT 05/01/2005 [facility] completed Encounters Encounter Type Encounter Reason Primary Diagnosis Location Date [facility] 11/21/2022 Inpatient Nonrheumatic aor tic (valve) stenosis [facility] 08/30/2022 Inpatient Atherosclerotic heart disease of [place] coronary artery without angina pectoris [facility] 08/08/2022 [facility] 08/08/2022 [facility] 08/08/2022 [facility] 08/08/2022 [facility] 08/08/2022 Care Team Organization Name Specialty Phone Email Start Date End Da te [facility] 08/30/2022 [facility] 08/08/2022 08/30/2022
[2025-09-18 09:39] VITALS: BP 120/78; PULSE 79; RESP 16; TEMP 36.3; O2SAT 98; BMI 25.5
--- NOTE | 2025-09-18 09:39 | AM.OFFWIN_ITS ---
Intake Vital Signs 09/18/25 09:39 Height 6 ft Weight 85.275 kg BMI 25.5 BP 120/78 Blood Pressure Location Rt brachial Position Sitting Respiration 16 Pulse 79 Pulse Source Pulse Oximeter Temp 97.3 F Pulse Oximetry (%) 98 Oxygen Delivery Method Room Air Intake Visit Reasons: EP Congestion in chest Intake Note: Pt is here today c/o chest congestion x1day Patient Tobacco Use Status: Former Tobacco user Allergies No Known Allergies Allergy (Verified 09/18/25 09:40) HPI HPI Comments History of Present Illness Details Chief Complaint: ?Chest congestion and cough.? History of Present Illness: The patient presents with chest congestion that began yesterday. He reports a productive cough with phlegm and notes that symptoms were worse overnight, describing ?a bad night.? He endorses mild shortness of breath and states he can hear himself wheezing. He felt weak upon awakening this morning. He denies nausea, vomiting, fever, chills, shortness of breath or chest pain. History notable for open heart surgery and valve replacement two years ago. Laboratory data relevant for visit: Nasopharyngeal swab obtained for influenza, COVID-19, and RSV; results pending. Imaging data relevant for visit: None obtained; chest X-ray deemed unnecessary based on clear lung exam. Patient with acute onset chest congestion and productive cough, likely viral upper respiratory infection with mild upper airway wheezing. Lung exam clear; no concern for pneumonia. Problem #1: Viral upper respiratory infection Assessment: Congestion, productive cough, symptom onset yesterday, denies systemic symptoms; viral etiology suspected. Plan: * Nasopharyngeal testing for influenza, COVID-19, RSV performed; patient will be notified if results are positive (?no news is good news?). Problem #2: Mild upper airway wheezing/bronchospasm Assessment: Patient hears self wheezing; exam reveals clear lungs with presumed mucus-related upper airway wheeze. Plan: * Prescribe albuterol inhaler for symptomatic relief. * Prescribe low-dose oral steroid as discussed to reduce airway inflammation. * Prescribe cough medication. 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 Mother CVD (cardiovascular disease) Daughter Macular degeneration Sister Colon cancer Cataract Brother Colon cancer Cataract Lung cancer Social History Household Members: Spouse Housing: House Alcohol intake: never Patient Tobacco Use Status: Former Tobacco user Tobacco use type: Cigarette Years Smoked: 15 Years service: Yes ([employer]) Current occupational status: retired Review of Systems Narrative Review of Systems: * Constitutional: Weakness this morning; denies fever or chills. * Respiratory: Chest congestion, productive cough, mild shortness of breath, audible wheezing. * Cardiovascular: Denies chest pain. History of open heart surgery and valve replacement two years ago. * Gastrointestinal: Denies nausea or vomiting. Const All systems reviewed & are unremarkable except as noted in HPI and below Physical Exam Exam Exam: Appearance: Alert.? Oriented X3.? No acute distress.? Head: Normocephalic, atraumatic, no step-offs or deformities Eyes: Pupils equal, round and reactive to light.? Neck: Normal inspection.? Neck supple.? CVS: Normal heart rate and rhythm.? Pulses normal.? Respiratory: No respiratory distress.? Breath sounds with very mild expiratory wheezing b/l.? Abdomen: Soft and nontender.? Skin: Skin warm and dry.? Normal skin color.? Normal skin turgor.? Extremities: No lower extremity edema.? No calf ttp. 5/5 strength to bilateral upper and lower extremities Back: No midline tenderness, no C-spine tenderness, full range of motion, no CVA tenderness bilaterally Neuro: Oriented X 3.? No motor deficit.? No sensory deficit. CN 2-12 intact Vital Signs: Last Vital Signs Temp 97.3 F 09/18/25 09:39 Pulse 79 09/18/25 09:39 Resp 16 09/18/25 09:39 BP 120/78 09/18/25 09:39 Pulse Ox 98 09/18/25 09:39 Oxygen Delivery Method Room Air 09/18/25 09:39 BMI result Body Mass Index 25.5 vss Assessment & Plan Assessment & Plan (1) Upper respiratory infection: Code(s): J06.9 - Acute upper respiratory infection, unspecified Plan Take your medications as prescribed. If you were prescribed antibiotics today, it is important that you take your medication to their entirety, do not skip any doses, do not finish them early. Follow-up with your primary care provider this week. Go to the emergency department with new or worsening symptoms. In case of emergency call 911 Medications: New prednisone 20 mg PO DAILY 5 tabs 0RF 5 days albuterol sulfate 90 mcg/actuation 2 puffs inhalation Q6H PRN 6.7 grams 0RF shortness of breath or wheezing benzonatate 100 mg PO BID PRN 14 caps 0RF cough Coding Level of Care Code Est Pt Level 3 (33289) Diagnoses Upper respiratory infection J06.9
== END 2025-09-18 12:26 | disposition home or self-care (01) ==
PROVIDERS: PCP Internal Medicine; Visit Provider Physician Assistant
DX: J06.9 Acute upper respiratory infection, unspecified (principal)

== ENCOUNTER 2025-09-30 09:55 | Outpatient (AMB) | payer MEDICARE, OTHER, SELFPAY ==
[2025-09-30 09:59] VITALS: BP 104/76; PULSE 64; BMI 25.3
--- NOTE | 2025-09-30 09:59 | MHC.OFFVIS ---
Vital Signs 09/30/25 09:59 Height 6 ft Weight 186 lb 4 oz BMI 25.3 BP 104/76 Blood Pressure Location Rt brachial Position Sitting Pulse 64 Pulse Source Palpation Intake Visit Reasons: Follow Up New Issues-Gait Intake Note: New issue - Gait, pt with Parkinson's disease Brake Lining Maker Required: No Accompanied by: Spouse and Daughter Allergies No Known Allergies Allergy (Verified 09/30/25 09:59) Medication List - Last Reconciled 09/30/25 by Caitlin Brar MD albuterol sulfate 90 mcg/actuation 2 puffs inhalation Q6H PRN aspirin (Ecotrin Low Strength) 81 mg PO DAILY atorvastatin 40 mg PO DAILY carbidopa-levodopa 25-100 mg ER 1 tab PO BID inhalational spacing device (PrimeAire spacer) As directed losartan 12.5 mg (1/2 x 25 mg) PO DAILY metoprolol tartrate 12.5 mg (1/2 x 25 mg) PO BID polyethylene glycol 3350 (Miralax) 17 grams PO DAILY rasagiline 1 mg PO DAILY HPI Comments Details: 85y/o ambidextrous male comes for follow up of Parkinsons disease after 8 mths .He is worse - slower, tremors are worse.His balance is worse- 2-3 falls . The falls are usually when his foot gets stuck.He was coming to the house and did not pick his foot up . He is not sure if sinemet is helping - he sleeps for 2-3 hrs after he takes it. He started with [facility] recently and has been helping Speech is worse , drools more. No dysphagia. He is independent in all his ADLs. He walks a mile a day. He has persistent rest tremors in both his hands but it does not bother him.He denies any side effects. He is independent in all his ADLs. .Mood is stable . sleep is good. Memory is stable Initial History-He was diagnosed 11years ago when he presented with left hand tremors.His symptoms have progressed gradually. He has rare word finding difficulties.He has vivid dreams and yells in sleep 4-5/year.No snoring.He has daytime fatigue No depression or anxiety.He likes to walk with his dog. He had 3 falls . He was on oxygen at that time - took it out to use the bathroom and fell down . He is off the oxygen now and is doing good. He has drooling, voice is softer handwriting is small.He is slower in using utensils, dressing ,showering.He has trouble moving in bed.His is walking good. He used to walk 5 miles a day and has decreased to 1 mile since his heart ( valve replacement)TARV. He denies hallucinations, dizziness, nausea, vomiting. He has constipation. He was [facility] when he was younger.No head injury. 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 Mother CVD (cardiovascular disease) Daughter Macular degeneration Sister Colon cancer Cataract Brother Colon cancer Cataract Lung cancer Social History Household Members: Spouse Housing: House Alcohol intake: never Patient Tobacco Use Status: Former Tobacco user Tobacco use type: Cigarette Years Smoked: 15 Years service: Yes ([employer]) Current occupational status: retired Physical Exam Vital Signs: Last Vital Signs Pulse 64 09/30/25 09:59 BP 104/76 09/30/25 09:59 BMI result Body Mass Index 25.3 Const General: cooperative and healthy appearing Nutritional Appearance: average body habitus Orientation/consciousness: patient oriented x3 Limitations: no limitations HEENT Head: Yes normal to inspection and Yes normocephalic Face and sinus: Yes normal facial exam Neuro Other: High amplitude rest tremors L>R Chin tremors Decreased FFM and foot taps - L>R Mild decreased facial expression and blink Mild hypophonia and dysprosody Gait- stooped, decreased arm swings kevin L>R , good stride and speed Decreased range of motion of neck , antecollis Right UE cog wheel rigidty 2 + General: patient oriented x3 Cranial nerves: Yes Nystagmus not present and Yes Normal facial strength present Coordination: [id number] test normal Assessment & Plan Assessment & Plan (1) Parkinson's disease: Code(s): G20 - Parkinson's disease Category: Medical Qualifiers: Dyskinesia presence: without dyskinesia Fluctuating manifestations: without fluctuating manifestations Qualified Code(s): G20.A1 - Parkinson's disease without dyskinesia, without mention of fluctuations Plan Change Sinemet to ER 25/100 BID with Rasagiline 1mg qd. Stretching exercises, and walking daily. VNA - for home exercise - home safety assessment Discussed fall prevention Orders: Referrals [facility] Referral G20.A1 - Parkinson's disease without dyskinesia, without mention of fluctuations Medications: New carbidopa-levodopa 25-100 mg ER 1 tab PO BID 60 tabs 6RF Discontinued carbidopa-levodopa 25-100 mg Discontinued Reason: Doctor's Order 1 tab PO BID 90 days 180 tabs 2RF Coding Level of Care Code Est Pt Level 4 (16095) Add On Problem Visit Only Diagnoses Parkinson's disease without dyskinesia or fluctuating manifestations G20.A1 Dyskinesia presence: without dyskinesia Fluctuating manifestations: without fluctuating manifestations
== END 2025-09-30 10:44 | disposition home or self-care (01) ==
LOC: HO.HSMS 09:56
PROVIDERS: PCP Internal Medicine; Visit Provider Psychiatry & Neurology Neurology
DX: G20.A1 Parkinson's disease without dyskinesia, without mention of fluctuations (principal)
CPT/HCPCS: 99214; G2211

== ENCOUNTER → 2025-09-30 09:55 | Outpatient (BNVA) | payer MEDICARE, OTHER, SELFPAY | PROVIDERS: PCP Internal Medicine; Visit Provider Psychiatry & Neurology Neurology | DX: G20.A1 Parkinson's disease without dyskinesia, without mention of fluctuations (principal) | CPT/HCPCS: 99212 ==